=== PATIENT | female | born 1940 | race Caucasian/White ===

== ENCOUNTER → 2017-05-23 | Outpatient (CLI) | payer MEDICARE ==
--- NOTE | 2017-05-23 10:51 | MM ---
Reason for exam: follow-up at short interval from prior study. Last mammogram was performed 6 months ago. History: Patient is postmenopausal. Benign US left guided VAD of the left breast, February 13, 2010. Benign cyst aspiration of the left breast, 2009. Took estrogen for 4 years beginning at age 57. Physical Findings: Nurse did not find any significant physical abnormalities on exam. MG 3D Diag Mammo W/Cad LT CC and MLO view(s) were taken of the left breast. Prior study comparison: November 10, 2016, left breast MG 3d work up w/cad LT. November 02, 2016, bilateral MG 3d screening mammo w/cad. October 28, 2015, bilateral MG 3d screening mammo w/cad. July 29, 2014, right breast MG work up mamm w CAD RT. July 19, 2014, bilateral MG screening mammo w CAD. July 12, 2013, bilateral digital screening mammo w/CAD. May 03, 2012, bilateral digital screening mammo w/CAD. March 31, 2011, bilateral digital screening mammo w/CAD. The breast tissue is heterogeneously dense. This may lower the sensitivity of mammography. The previous questioned nodularity medially is no longer present. These results were verbally communicated with the patient and result sheet given to the patient on 05/23/17. ASSESSMENT: Negative, BI-RAD 1 RECOMMENDATION: Return to routine screening mammogram schedule for both breasts. Back on schedule for October 2017.
== END | disposition home or self-care (01) ==
LOC: RADMAMWWP 09:37
PROVIDERS: ATTEND Internal Medicine
DX: R92.2 Inconclusive mammogram (principal)
CPT/HCPCS: G0206; G0279

== ENCOUNTER → 2017-05-31 | Outpatient (CLI) | payer MEDICARE ==
--- NOTE | 2017-06-01 08:16 | WWHP ---
DATE OF SERVICE: 05/31/2017 CHIEF COMPLAINT: The patient is here for a second opinion regarding her abnormal mammogram and abnormal bone density testing. HPI: This is a 76-year-old G2, P2 with an LMP of 1979 who is status post [facility] for benign reasons. The patient states she had pelvic exam with Pap smear in by Dr. Onofre. She believes the results were normal. The patient did have bilateral screening mammogram on 11/02/16, which did require an additional view of the left breast. The additional view was benign, but they did suggest another mammogram in 6 months. This was done on 05/23/17, which was negative. They recommended bilateral screening mammogram in 10/30. The patient is wondering why she frequently gets called back for mammograms and additional views. She also had a bone density test done in 10/29 done at [facility], which showed osteopenia according to the patient. She was started on Alendronate, but his caused muscle and bone aching and therefore she discontinued the medication. The symptoms did stop after discontinuing the medication. She is otherwise without complaints. PAST MEDICAL HISTORY: Seizure disorder since the . Her last seizure was in 1981. She discontinued medication for this earlier this year. Also, history of osteopenia as above. MEDICATIONS: 1. Multivitamin daily. 2. Calcium with vitamin D daily. Allergies to DILANTIN, which caused a rash. PAST SURGICAL HISTORY: DEZ in 1979, partial bowel resection in 1989, which was benign, left breast needle biopsy in 2009, colonoscopy in 2016 and she has had multiple colonoscopies done. PAST OB HISTORY: Two vaginal deliveries. 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 She does not use HRT. SOCIAL HISTORY: She socially used cigarettes, but quit in college years ago. She has about one alcoholic drink per week and denies drug use. 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 FAMILY HISTORY: Mother had coronary artery disease and diabetes. She also had several aunts who had heart problems and diabetes. She denies family history of cancer of the breast, uterus, ovaries or colon. REVIEW OF SYSTEMS: She believes she has gained about 10 pounds over the last 2 years. She denies respiratory, cardiac or GI problems. She denies maltreatment or falling. : She denies any significant problems with urinary leakage, but can have occasional urinary urgency where she has to get to bathroom right away. PHYSICAL EXAM: Blood pressure 140/72. Height 5 feet 5 inches. Weight 161 pounds. Temperature 97.2. Pulse 63. This is a well-developed, well-nourished white female who is alert and oriented x3 in no acute distress. HEENT is within normal limits. NECK: Supple without mass or thyromegaly. CHEST AND LUNGS: Clear to auscultation. HEART: Regular rate and rhythm. Breasts are without mass or discharge. She does have multiple benign appearing moles beneath the breasts, which she states she has had for many years. BACK: Negative for CVA tenderness. ABDOMEN: Soft, nontender without palpable masses. Pelvic exam was deferred since she states she had a normal pelvic exam in 10/29 as above. IMPRESSION: 1. A 76-year-old menopausal female, status post DEZ for benign reasons. 2. History of abnormal mammogram, which required additional views and short term followup which was benign. 3. History of osteopenia per the patient. PLAN: 1. Pap smears have been discontinued. 2. Self-breast examination was discussed. 3. Bilateral screening mammogram will be done in approximately 6 months. 4. We have had a long discussion regarding her abnormal mammograms. We have reviewed the past several years of mammograms. The patient has been reassured that the ultimate findings were benign. We have discussed her very dense breast tissue as read on her mammograms. With the normal examination, I have reassured the patient that nothing further needs to be done at this time, but to repeat the mammogram as recommended. 5. We have had a long discussion regarding her history of osteopenia. I have asked her to try to get the copy of her report sent to me. We discussed the importance of adequate calcium, vitamin D and regular exercise. We have discussed the recommended amounts of calcium and vitamin D. I have recommended that she repeat the bone density testing at about 2 years. She would like to go without medications and I think this is reasonable. 6. She does get flu shots in the fall. 7. She will return in approximately 6 months for her yearly pelvic exam and mammogram. Total time spent with the patient 30 minutes. CHELY
== END | disposition home or self-care (01) ==
LOC: WWCWWP 09:19
PROVIDERS: ATTEND Obstetrics & Gynecology
DX: Z53.9 Procedure and treatment not carried out, unspecified reason (principal)

== ENCOUNTER → 2017-12-02 | Outpatient (CLI) | payer MEDICARE ==
--- NOTE | 2017-12-02 11:34 | XR ---
EXAM TYPE: LUMBAR SPINE X RAY SERIES COMPARISON: NONE HISTORY: Pain TECHNIQUE: 3 views are submitted. FINDINGS: Scoliotic curvature the spine with diffuse osteopenia noted. There is surgical change in the abdomen. Severe degenerative disc disease L2-L3 and L5-S1 with moderate changes at remaining levels. Minimal anterolisthesis of L4 on L5. There is arthritic change involving the spinous processes at L3-L4. Diff use osteopenia noted. IMPRESSION: 1. Multilevel moderate to severe degenerative disc disease with scoliotic curvature. Foraminal encroa chment likely present correlate with MRI.
== END | disposition home or self-care (01) ==
LOC: RADXRMAIN 11:13
DX: M51.37 Other intervertebral disc degeneration, lumbosacral region (principal)
CPT/HCPCS: 72100

== ENCOUNTER → 2018-03-16 | Outpatient (CLI) | payer MEDICARE ==
--- NOTE | 2018-03-20 08:30 | MM ---
Reason for exam: screening (asymptomatic). Last mammogram was performed 10 months ago. History: Patient is postmenopausal. Benign US left guided VAD of the left breast, February 13, 2010. Benign cyst aspiration of the left breast, 2009. Took estrogen for 4 years beginning at age 57. Physical Findings: A clinical breast exam by your physician is recommended on an annual basis and results should be correlated with mammographic findings. MG 3D Screening Mammo W/Cad Bilateral CC and MLO view(s) were taken. Prior study comparison: May 23, 2017, left breast MG 3d diag mammo w/cad LT. November 10, 2016, left breast MG 3d work up w/cad LT. The breast tissue is heterogeneously dense. This may lower the sensitivity of mammography. There are typically benign round vascular calcifications in both breasts. Previous mammotome biopsy in the left breast. There is no discrete abnormality. ASSESSMENT: Benign, BI-RAD 2 RECOMMENDATION: Routine screening mammogram of both breasts in 1 year.
== END | disposition home or self-care (01) ==
LOC: RADMAMWWP 12:37
PROVIDERS: ATTEND Internal Medicine
DX: Z12.31 Encounter for screening mammogram for malignant neoplasm of breast (principal)
CPT/HCPCS: 77063; 77067

== ENCOUNTER → 2018-10-04 | Outpatient (CLI) | payer MEDICARE ==
[2018-10-04 09:51] VITALS: BP 142/77; PULSE 71; TEMP 97.5; BMI 26.8
--- NOTE | 2018-10-04 10:36 | P.HPOB ---
History of Present Illness H&P Date: 10/04/18 Chief Complaint: The patient is here for her routine gynecologic exam. This is a 78-year-old with LMP of [address] [facility] for benign reasons. The patient states she has had vaginal dryness and some discomfort with sexual intercourse. She is otherwise without gynecologic complaints. Review of Systems Weight has been stable. She denies respiratory, cardiac and G.I. problems. She denies maltreatment or problems with falling. : she has had vaginal dryness and discomfort with sexual intercourse. She is without bladder control complaints. Past Medical History Past Medical History: No Reported History, Seizure Disorder (In the ) Additional Past Medical History / Comment(s): Osteopenia. 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 She is status post [facility] in 1979 History of Any Multi-Drug Resistant Organisms: None Reported Past Surgical History: Breast Surgery (Left breast biopsy 2009), Hysterectomy ( DEZ in 1979) Additional Past Surgical History / Comment(s): mass removed from colon . 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 - Past Family History Mother Family Medical History: Coronary Artery Disease (CAD), Diabetes Mellitus Medications and Allergies Home Medications Medication Instructions Recorded Confirmed Type No Known Home Medications 10/04/18 10/04/18 History Allergies Allergy/AdvReac Type Severity Reaction Status Date / Time No Known Allergies Allergy Unverified 10/04/18 09:42 Exam Vital Signs Temp Pulse BP 10/04/18 09:44 97.5 F L 71 142/77 Intake and Output 10/03/18 10/04/18 10/04/18 22:59 06:59 14:59 Other: Weight 73.028 kg Height 5'5", weight 161 pounds, BMI 26.8. This is a well-developed well-nourished white female who is alert and oriented times 3 in no acute distress. HEENT: Within normal limits. NECK: Supple without mass or thyromegaly. CHEST AND LUNGS: Clear to auscultation. HEART: Regular rate and rhythm. BREASTS: Are without mass or discharge. There is minimal left breast tenderness. She states the left breast has been slightly sore. AXILLARY EXAM: Negative for adenopathy. BACK: Negative for CVA tenderness. ABDOMEN: Soft, nontender, without palpable masses. PELVIC EXAM: External genitalia appears normal with mild to moderate atrophy. Vagina appears normal is mild to moderate atrophy. There is no evidence of prolapse. Bimanual examination is negative for mass or tenderness. RECTAL EXAM: Rectovaginal exam is negative for mass or tenderness and is negative for occult blood. EXTREMITIES: Nontender. IMPRESSION: 1. 78-year-old menopausal female who is status post DEZ for benign reasons with normal gynecologic exam. 2. Dyspareunia and dryness secondary to genital atrophy. 3. History of osteopenia. PLAN: 1. Pap smears have been discontinued. 2. Self breast awareness was discussed with the patient. 3. Screening mammogram was done on 03/16/2018 and was benign. She will plan on repeating this in one year. 4. I recommended that she decrease caffeine and chocolate intake because of the breast tenderness. 5. Trial of Premarin vaginal cream 1 to 2 g intravaginally twice weekly. The electronic prescription will be sent to [facility] pharmacy in [place]. 6. Osteoporosis prevention was discussed. We will plan on repeating the bone density test next year. The last one was done in 2016 and showed osteopenia per the patient. 7. She did receive her flu shot this fall. 8. She will return in one year.
== END ==
LOC: WWCWWP 09:25
PROVIDERS: ATTEND Obstetrics & Gynecology
DX: Z53.9 Procedure and treatment not carried out, unspecified reason (principal)

== ENCOUNTER 2019-02-18 11:37 | Emergency (ER) | payer MEDICARE ==
[2019-02-18 11:53] VITALS: RESP 18
[2019-02-18] MEDS ORDERED: HYDROmorphone 0.5 MG/0.5 ML SYRINGE IVP STA ×2 (12:14→14:08)
--- NOTE | 2019-02-18 12:34 | ED ---
General Adult HPI - General Chief complaint: Headache Stated complaint: Vertigo, Nausea, vomiting Time Seen by Provider: 02/18/19 11:50 Source: patient, RN notes reviewed Mode of arrival: EMS Limitations: no limitations - History of Present Illness Initial comments: This is a 78-year-old female presents emergency Department complaining of a occipital headache. Patient states she got up this Tuesday by 6:00 and walked her dog and had no incident. Patient states she went back to bed he started getting a headache in the occipital region she stated that after about 20-30 minutes the headache reached about an 8 out of 10 which was it's peak. Patient states it's little better now. Patient states she did vomit times one but has not vomited since. Patient states in November she had a bleed in her brain secondary to trauma. Patient states the bleed was in the frontal right region of her brain and this is in the occipital region. Patient denies any neck pain or stiffness. Patient denies any fever chills per patient denies any blurred vision however she states she saw a lot of black spots when the headache was at its worst in both eyes. Patient denies any speech disturbance. Patient denies any numbness or weakness. Patient denies any chest pain palpitations difficulty breathing or shortness of breath per patient denies any abdominal pain patient denies nausea vomiting diarrhea. - Related Data Previous Rx's Medication Instructions Recorded Estrogens, Conjugated Cream 1 gm VAGINAL DIRECTED #1 tube 10/04/18 [Premarin Cream] Allergies Allergy/AdvReac Type Severity Reaction Status Date / Time phenytoin [From Dilantin] AdvReac Unknown Verified 02/18/19 11:53 Review of Systems ROS Statement: Those systems with pertinent positive or pertinent negative responses have been documented in the HPI. ROS Other: All systems not noted in ROS Statement are negative. Past Medical History Past Medical History: Seizure Disorder Additional Past Medical History / Comment(s): Osteopenia, fall with headinjury, DEZ in 1979 History of Any Multi-Drug Resistant Organisms: None Reported Past Surgical History: Breast Surgery, Hysterectomy Additional Past Surgical History / Comment(s): mass removed from colon . Colonoscopy 2016(multiple) Past Psychological History: No Psychological Hx Reported Smoking Status: Former smoker Past Alcohol Use History: Rare Past Drug Use History: None Reported - Past Family History Mother Family Medical History: Coronary Artery Disease (CAD), Diabetes Mellitus General Exam - General Exam Comments Initial Comments: GENERAL: Patient is well-developed and well-nourished. Patient is nontoxic and well- hydrated and is in mild distress. ENT: Neck is soft and supple. No significant lymphadenopathy is noted. Oropharynx is clear. Moist mucous membranes. Neck has full range of motion without eliciting any pain. Patient has no meningitis meningismus signs EYES: The sclera were anicteric and conjunctiva were pink and moist. Extraocular movements were intact and pupils were equal round and reactive to light. Eyelids were unremarkable. PULMONARY: Unlabored respirations. Good breath sounds bilaterally. No audible rales rhonchi or wheezing was noted. CARDIOVASCULAR: There is a regular rate and rhythm without any murmurs gallops or rubs. ABDOMEN: Soft and nontender with normal bowel sounds. SKIN: Skin is clear with no lesions or rashes and otherwise unremarkable. NEUROLOGIC: Patient is alert and oriented x3. Cranial nerves II through XII are grossly intact. Motor and sensory are also intact. Normal speech, volume and content. Symmetrical smile. MUSCULOSKELETAL: Normal extremities with adequate strength and full range of motion. LYMPHATICS: No significant lymphadenopathy is noted PSYCHIATRIC: Normal psychiatric evaluation. Limitations: no limitations Course Vital Signs 02/18/19 11:48 Temperature 97.8 F Pulse Rate 67 Respiratory 18 Rate Blood Pressure 125/60 O2 Sat by Pulse 99 Oximetry Medical Decision Making - Medical Decision Making EKG shows normal sinus rhythm at 66 bpm [place] interval 274 QRS is 106 QT interval 442 QTC is 463. Patient's EKG shows no ST segment elevation or depression or T wave abnormalities are noted. CT of the brain shows no acute abnormality. I went back in the room to reevaluate the patient she was sleeping I woke her she got up and stated she had no more headache. Patient walked around the emergency department without problem. Patient has no complaints at all at this time. Patient states she's had this headache every single day since she's been released from the hospital from her intercranial hemorrhage. agrees that it is a daily occurrence. - Lab Data Result diagrams: 02/18/19 12:37 02/18/19 12:37 Lab Results 02/18/19 02/18/19 Range/Units 12:37 12:37 WBC 4.6 (3.8-10.6) k/uL RBC 4.95 (3.80-5.40) m/uL Hgb 14.1 (11.4-16.0) gm/dL Hct 42.8 (34.0-46.0) % MCV 86.5 (80.0-100.0) fL MCH 28.6 (25.0-35.0) pg MCHC 33.0 (31.0-37.0) g/dL RDW 15.8 H (11.5-15.5) % Plt Count 226 (150-450) k/uL Neutrophils % 72 % Lymphocytes % 18 % Monocytes % 5 % Eosinophils % 2 % Basophils % 1 % Neutrophils # 3.4 (1.3-7.7) k/uL Lymphocytes # 0.9 L (1.0-4.8) k/uL Monocytes # 0.2 (0-1.0) k/uL Eosinophils # 0.1 (0-0.7) k/uL Basophils # 0.0 (0-0.2) k/uL Sodium 141 (137-145) mmol/L Potassium 4.3 (3.5-5.1) mmol/L Chloride 110 H (98-107) mmol/L Carbon Dioxide 27 (22-30) mmol/L Anion Gap 4 mmol/L BUN 10 (7-17) mg/dL Creatinine 0.72 (0.52-1.04) mg/dL Est GFR (CKD-EPI)AfAm >90 (>60 ml/min/1.73 sqM) Est GFR (CKD-EPI)NonAf 82 (>60 ml/min/1.73 sqM) Glucose 112 H (74-99) mg/dL Calcium 9.3 (8.4-10.2) mg/dL Total Bilirubin 0.5 (0.2-1.3) mg/dL AST 20 (14-36) U/L ALT 35 (9-52) U/L Alkaline Phosphatase 59 (38-126) U/L Total Protein 6.3 (6.3-8.2) g/dL Albumin 3.7 (3.5-5.0) g/dL Disposition Clinical Impression: Headache Disposition: HOME SELF-CARE Condition: Good Instructions (If sedation given, give patient instructions): Acute Headache (ED) Is patient prescribed a controlled substance at d/c from ED?: No Referrals: Cris Onofre MD [Primary Care Provider] - 1-2 days Time of Disposition: 14:00
[2019-02-18 12:46] LABS: Basophils % (A) 1 %; Eosinophils # (A) 0.1 k/uL (0-0.7); Eosinophils % (A) 2 %; HCT 42.8 % (34.0-46.0); HGB 14.1 gm/dL (11.4-16.0); Lymphocytes # (A) 0.9 k/uL (1.0-4.8); Lymphocytes % (A) 18 %; MCH 28.6 pg (25.0-35.0); MCV 86.5 fL (80.0-100.0); Mean Platelet Volume 9.7; Monocytes # (A) 0.2 k/uL (0-1.0); Monocytes % (A) 5 %; Neutrophils # (A) 3.4 k/uL (1.3-7.7); Neutrophils % (A) 72 %; Platelet Count 226 k/uL (150-450); RBC 4.95 m/uL (3.80-5.40); RDW 15.8 % (11.5-15.5); WBC 4.6 k/uL (3.8-10.6)
[2019-02-18 12:59] LABS: ALT 35 U/L (9-52); AST 20 U/L (14-36); Albumin 3.7 g/dL (3.5-5.0); Alkaline Phosphatase 59 U/L (38-126); Anion Gap 4 mmol/L; Blood Urea Nitrogen 10 mg/dL (7-17); Calcium 9.3 mg/dL (8.4-10.2); Carbon Dioxide 27 mmol/L (22-30); Chloride 110 mmol/L (98-107); Glucose 112 mg/dL (74-99); Potassium 4.3 mmol/L (3.5-5.1); Sodium 141 mmol/L (137-145); Total Bilirubin 0.5 mg/dL (0.2-1.3); Total Protein 6.3 g/dL (6.3-8.2)
--- NOTE | 2019-02-18 13:31 | CT ---
EXAMINATION TYPE: CT brain wo con DATE OF EXAM: 02/18/2019 COMPARISON: NONE HISTORY: Severe ROBISON, history of bleed CT DLP: 1056.4 mGycm Automated exposure control for dose reduction was used. FINDINGS: There are generalized changes of sulcal prominence and ventriculomegaly, compatible with atrophic blanca nge. There is diffuse periventricular white matter lucency, compatible with chronic white matter isch emic change. There is no acute focal lesion, mass effect or midline shift identified. I do not see ev idence of intracranial blood. Visualized portions of the paranasal sinuses and mastoids are clear. The bony calvarium is intact. IMPRESSION: 1. NO ACUTE INTRACRANIAL ABNORMALITY. 2. MILD DEGENERATIVE CHANGE.
[2019-02-18] MEDS ORDERED: PROPOFOL 1,000 MG in EMPTY BAG 1 BAG IV ONE (13:42)
[2019-02-18] MEDS ORDERED: ASPIRIN-ACET-CAFF 250-250-65MG 1 EACH TAB PO STA (14:07)
[2019-02-18 14:43] VITALS: BP 96/57; PULSE 52; TEMP 98.1
== END 2019-02-18 14:30 | disposition home or self-care (01) ==
LOC: EC 11:37
DX: R51 Headache (principal); R11.10 Vomiting, unspecified; Z87.891 Personal history of nicotine dependence; Z88.8 Allergy status to other drugs, medicaments and biological substances; Z53.8 Procedure and treatment not carried out for other reasons
CPT/HCPCS: 36415; 93005; 80053; 85025; 70450; 99285; 96374; 96376; J1170

== ENCOUNTER → 2019-03-02 | Outpatient (CLI) | payer MEDICARE ==
--- NOTE | 2019-03-02 11:25 | MR ---
EXAMINATION TYPE: MR brain wo/w con DATE OF EXAM: 03/02/2019 COMPARISON: CT brain 02/18/2019 HISTORY: Head injury, fall TECHNIQUE: Multiplanar, multisequence images of the brain and brainstem is performed without and with IV contras t, utilizing 7.5 mL intravenous Gadavist . FINDINGS: Diffusion weighted images demonstrate no evidence of a recent infarct or other diffusion ab normality. There is changes of chronic mastoiditis and sinusitis. There are diffuse and focal areas of abnormal signal scattered throughout the white matter bilaterall y. More localized area of abnormal signal in the left parietal occipital junction suggestive of an area of previous ischemia. Mild generalized degenerative change seen. Midline structures demonstrate normal morphology. The craniocervical junction appears within normal limits. Post contrast images demonstrate no abnormal enhancement. The dural venous sinuses appear pa tent. IMPRESSION: 1. Degenerative and nonspecific white matter changes most typical remote microvascular ischemia. 2 bi lateral mastoiditis and chronic sinusitis.
== END | disposition home or self-care (01) ==
LOC: RADMRIMAIN 08:47
PROVIDERS: ATTEND Internal Medicine
DX: R90.89 Other abnormal findings on diagnostic imaging of central nervous system (principal); R56.9 Unspecified convulsions; J32.9 Chronic sinusitis, unspecified
CPT/HCPCS: 70553; A9585

== ENCOUNTER → 2019-04-25 | Outpatient (CLI) | payer MEDICARE ==
--- NOTE | 2019-04-25 15:56 | US ---
EXAMINATION TYPE: US pelvic complete DATE OF EXAM: 04/25/2019 COMPARISON: NONE CLINICAL HISTORY: Ovarian Cyst Right Side N83.291. Intermittent right abdominal pressure and bloating x 6 months, 2, para 2, history of hysterectomy and tubal ligation TECHNIQUE: . Transabdominal sonographic images of the pelvis were acquired. Patient refused transvag inal exam at this time. Date of LMP: 25+ years ago EXAM MEASUREMENTS: Uterus: surgically absent Endometrial Stripe: surgically absent Right Ovary: not seen Left Ovary: not seen 1. Uterus: surgically absent 2. Endometrium: surgically absent 3. Right Ovary: not seen 4. Left Ovary: not seen 5. Bilateral Adnexa: wnl 6. Posterior cul-de-sac: wnl IMPRESSION: Surgical absence of the and uterus. Ovaries are not seen transabdominally and the patient refused transvaginal imaging.
== END | disposition home or self-care (01) ==
LOC: RADUSWWP 14:58
PROVIDERS: ATTEND Internal Medicine
DX: N83.291 Other ovarian cyst, right side (principal); Z90.710 Acquired absence of both cervix and uterus
CPT/HCPCS: 76856

== ENCOUNTER 2021-10-06 10:35 | Emergency (ER) | payer MEDICARE ==
[2021-10-06 11:18] VITALS: BP 142/73; PULSE 64; RESP 19; TEMP 98.5
--- NOTE | 2021-10-06 12:12 | XR ---
EXAMINATION TYPE: XR chest 2V DATE OF EXAM: 10/06/2021 COMPARISON: Chest x-ray 07/24/2018 HISTORY: Cough and chest congestion, difficulty breathing TECHNIQUE: Frontal and lateral views of the chest are obtained. FINDINGS: Calcification left upper lobe is stable, there are additional scattered granuloma present. No evident pneumothorax or pleural effusion. Right hemidiaphragm is mildly elevated as on prior. Aor ta is dense. Cardiomediastinal silhouette is stable. No evident airspace disease. There is bronchial wall thickening. There is a slight spinal curvature. Mixed density lesion within the humeral head lik jesse is stable. IMPRESSION: Correlate for bronchitis, follow-up as indicated. Additional findings above.
--- NOTE | 2021-10-06 12:43 | ED ---
General Adult HPI - General Chief complaint: Upper Respiratory Infection Stated complaint: Upper Resp Time Seen by Provider: 10/06/21 12:19 Source: patient, RN notes reviewed Mode of arrival: ambulatory Limitations: no limitations - History of Present Illness Initial comments: 81-year-old female with a past medical history of seizure disorder, osteopenia presents to the emergency room for a chief complaint of cough. Patient started to not feel well last Tuesday. She developed a cough and chest congestion. States she has been more fatigued than normal. Patient's was diagnosed with RSV. Patient did see her doctor and started an antibiotic erythromycin as well as steroid dose pack on Tuesday. Today they wanted to get checked out as her is very sick with a history of asthma.Patient has no other complaints at this time including shortness of breath, chest pain, abdominal pain, nausea or vomiting, headache, or visual changes. - Related Data Previous Rx's Medication Instructions Recorded Estrogens, Conjugated Cream 1 gm VAGINAL DIRECTED #1 tube 10/04/18 [Premarin Cream] Albuterol Inhaler [Ventolin Hfa 2 puff INHALATION RT-QID PRN #8 gm 10/06/21 Inhaler] Allergies Allergy/AdvReac Type Severity Reaction Status Date / Time phenytoin [From Dilantin] AdvReac Unknown Verified 10/06/21 11:19 Review of Systems ROS Statement: Those systems with pertinent positive or pertinent negative responses have been documented in the HPI. ROS Other: All systems not noted in ROS Statement are negative. Past Medical History Past Medical History: Seizure Disorder Additional Past Medical History / Comment(s): Osteopenia, fall with headinjury, DEZ in 1979 History of Any Multi-Drug Resistant Organisms: None Reported Past Surgical History: Breast Surgery, Hysterectomy Additional Past Surgical History / Comment(s): mass removed from colon . Colonoscopy 2016(multiple) Past Psychological History: No Psychological Hx Reported Smoking Status: Never smoker Past Alcohol Use History: Rare Past Drug Use History: None Reported - Past Family History Mother Family Medical History: Coronary Artery Disease (CAD), Diabetes Mellitus General Exam Limitations: no limitations General appearance: alert, in no apparent distress Head exam: Present: atraumatic Eye exam: Present: normal appearance, PERRL, EOMI. Absent: scleral icterus, conjunctival injection ENT exam: Present: normal exam, mucous membranes moist Neck exam: Present: normal inspection, full ROM Respiratory exam: Present: normal lung sounds bilaterally. Absent: respiratory distress, wheezes, rales, rhonchi Cardiovascular Exam: Present: regular rate, normal rhythm, normal heart sounds Course Vital Signs 10/06/21 11:15 Temperature 98.5 F Pulse Rate 64 Respiratory 19 Rate Blood Pressure 142/73 O2 Sat by Pulse 95 Oximetry Medical Decision Making - Medical Decision Making Vitals are stable. Patient is 95% on room air. She is not in any respiratory distress. Physical exam is unremarkable. Patient has clear lung sounds bilaterally. Patient tested negative for carotid virus today. Chest x-ray did show a correlate for bronchitis. Patient's has RSV and is in the ICU. However he does have a history of asthma. Given this I did offer to test patient for RSV as the rest was done in triage. However as this will not change the clear plan she refers not to be tested at this time. She will continue on her steroid and antibiotic. We will prescribe her albuterol. If she has worsening symptoms she'll return to the emergency room. - Lab Data Lab Results 10/06/21 Range/Units 11:21 Coronavirus (PCR) Not Detected (Not Detectd) Disposition Clinical Impression: Bronchitis, Cough Disposition: HOME SELF-CARE Condition: Good Instructions (If sedation given, give patient instructions): Acute Bronchitis (ED) Additional Instructions: Please finish your medications as previously prescribed. Use inhaler as needed. Follow-up with your primary care doctor. Return to the emergency room for any worsening symptoms. Prescriptions: Albuterol Inhaler [Ventolin Hfa Inhaler] 2 puff INHALATION RT-QID PRN #8 gm PRN Reason: Shortness Of Breath Is patient prescribed a controlled substance at d/c from ED?: No Referrals: Cris Onofre MD [Primary Care Provider] - 1-2 days Time of Disposition: 12:42
== END 2021-10-06 12:59 | disposition home or self-care (01) ==
LOC: EC 10:35
DX: J40 Bronchitis, not specified as acute or chronic (principal); Z20.822 Contact with and (suspected) exposure to COVID-19
CPT/HCPCS: 71046; 87635; 99283

== ENCOUNTER 2023-03-30 12:49 | Inpatient (IN) | payer MEDICARE ==
[2023-03-30 13:16] LABS: Glucose,Whole Blood 85 mg/dL (70-110)
[2023-03-30 13:21] LABS: Basophils % (A) 1 %; Eosinophils # (A) 0.3 k/uL (0-0.7); Eosinophils % (A) 5 %; HGB 13.3 gm/dL (11.4-16.0); Lymphocytes # (A) 1.1 k/uL (1.0-4.8); Lymphocytes % (A) 22 %; MCH 30.2 pg (25.0-35.0); MCHC 32.4 g/dL (31.0-37.0); Mean Platelet Volume 7.3; Monocytes # (A) 0.3 k/uL (0-1.0); Monocytes % (A) 7 %; Neutrophils # (A) 3.2 k/uL (1.3-7.7); Neutrophils % (A) 64 %; Platelet Count 254 k/uL (150-450); RBC 4.41 m/uL (3.80-5.40); RDW 13.5 % (11.5-15.5); WBC 5.1 k/uL (3.8-10.6)
[2023-03-30 13:37] LABS: Prothrombin Time 10.2 sec (9.0-12.0)
[2023-03-30 13:38] LABS: Partial Thromboplastin Time 21.2 sec (22.0-30.0)
--- NOTE | 2023-03-30 13:41 | CT ---
EXAMINATION TYPE: CT brain wo con CT DLP: 1162.6 mGycm, Automated exposure control for dose reduction was used. DATE OF EXAM: 03/30/2023 1:33 PM COMPARISON: Prior CT brain 01/17/2023. CLINICAL INDICATION:Female, 82 years old with history of Neuro deficit, acute, stroke suspected, LT s jb weakness, stroke in January TECHNIQUE: Brain: Multiple axial CT images of the brain were obtained without IV contrast. Coronal and sagittal reformats reviewed. FINDINGS: Brain: Extra-axial spaces: No abnormal extra-axial fluid collections. Resolution of subdural hemorrhage in t he right middle cranial fossa. Ventricular system: Within normal limits Cerebral parenchyma: Cerebral atrophy. No acute intraparenchymal hemorrhage or mass effect. Resolutio n of previously seen intraparenchymal hemorrhage within the right temporal lobe with encephalomalacia demonstrated. Remote injury to the left occipital lobe with evidence of malacia demonstrated and sim ilar in appearance to prior exam. The younger-white junction is well differentiated. Scattered hypoatten uating areas are seen within the white matter. Cerebellum: Unremarkable. Mass effect: No evidence of midline shift. Intracranial vasculature: Atherosclerotic calcifications of the intracranial vessels. Soft tissues: Normal. Calvarium/osseous structures: No depressed skull fracture. Paranasal sinuses and mastoid air cells: The mastoid is cells are clear. Mild mucosal thickening in t he right maxillary sinus. Visualized orbits: Orbital contents are intact. IMPRESSION: 1. No acute intracranial process. 2. Resolution of previously seen subdural hemorrhage and intraparenchymal hemorrhage within the righ t middle cranial fossa. There is associated evolving encephalomalacia in the right temporal lobe. 3. Remote left occipital lobe infarct with nonspecific white matter changes likely related to chroni c small vessel ischemic disease.
[2023-03-30 13:43] LABS: ALT 29 U/L (4-34); African American GFR (CKD) >90 (>60 ml/min/1.73 sqM); Albumin 3.3 g/dL (3.5-5.0); Anion Gap 8 mmol/L; Blood Urea Nitrogen 11 mg/dL (7-17); Calcium 8.2 mg/dL (8.4-10.2); Carbon Dioxide 25 mmol/L (22-30); Chloride 106 mmol/L (98-107); Creatine Kinase 145 U/L (30-135); Glucose 91 mg/dL (74-99); Non-African American GFR(CKD) 88 (>60 ml/min/1.73 sqM); Sodium 139 mmol/L (137-145); Total Bilirubin 0.4 mg/dL (0.2-1.3)
[2023-03-30 13:47] LABS: AST 27 U/L (14-36); Alkaline Phosphatase 63 U/L (38-126)
--- NOTE | 2023-03-30 14:15 | CT ---
EXAMINATION TYPE: CT angio head neck CT DLP :373.5 mGycm, Automated exposure control for dose reduction was used. DATE OF EXAM: 03/30/2023 1:56 PM COMPARISON: CTA head neck 01/17/2023, CT head 03/30/2023. CLINICAL INDICATION:Female, 82 years old with history of Neuro deficit, acute, stroke suspected; [facility], TECHNIQUE: Axially acquired helical CT angiogram of the head and neck was obtained with contrast util izing 65 cc of Isovue-370 administered intravenously. Axial images are supplemented with 3D reconstru ctions which were post-processed at an independent workstation. NASCET criteria used. FINDINGS: CTA HEAD: No evidence of acute intracranial hemorrhage, mass effect, or midline shift. The ventricles, sulci, a nd cisterns are unremarkable. The visualized portions of the internal carotid arteries, middle cerebral arteries, anterior cerebral arteries, and posterior cerebral arteries are patent. The basilar and vertebral arteries are patent. CTA NECK: Right Carotid System: The common carotid artery and external carotid artery are patent. Mild atherosclerotic calcification of the carotid bifurcation. The carotid bifurcation demonstrates no evidence of hemodynamically signi ficant stenosis. The remaining portions of the internal carotid artery demonstrate normal size withou t significant narrowing. Left Carotid System: The common carotid artery and external carotid artery are patent. Mild atherosclerotic calcification of the carotid bifurcation. The carotid bifurcation demonstrates no evidence of hemodynamically signi ficant stenosis. The remaining portions of the internal carotid artery demonstrate normal size withou t significant narrowing. Vertebral arteries are patent without evidence hemodynamically significant stenosis. Right vertebral artery is dominant. There is a four-vessel aortic arch. The origins of the great vessels are patent. No evidence of hemod ynamically significant stenosis. IMPRESSION: 1. No evidence of dissection of the cervical internal carotid arteries or vertebral arteries. Mild pl aque at the carotid artery bifurcations without evidence hemodynamically significant stenosis. 2. No evidence of high-grade stenosis or intracranial aneurysm.
[2023-03-30 14:16] LABS: Appearance,Urine Clear (Clear); Bilirubin,Urine Negative (Negative); Blood,Urine Negative (Negative); Color,Urine Yellow; Glucose,Urine (UA) Negative (Negative); Ketones,Urine Negative (Negative); Leukocyte Esterase,Urine Negative (Negative); Nitrite,Urine Negative (Negative); PH, Urine 6.5 (5.0-8.0); Protein,Urine Trace (Negative); Specific Gravity,Urine 1.031 (1.001-1.035); Urobilinogen,Urine <2.0 mg/dL (<2.0)
--- NOTE | 2023-03-30 14:54 | ED ---
Altered Mental Status HPI - General Chief Complaint: Altered Mental Status Stated Complaint: AMS Time Seen by Provider: 03/30/23 13:00 Source: EMS Mode of arrival: EMS Limitations: altered mental status - History of Present Illness Initial Comments: 82-year-old female with past history of hemorrhagic CVA who presents emergency Department with altered mental status. Nursing facility states that the patient went to bed her normal self around 9 PM last night. She woke at 6 AM. They state that her gait was off. Patient was somnolent and difficult to arouse. They felt that the patient had weakness in her left upper extremity. She does have history of hemorrhagic stroke. denies that the patient has had any changes in her speech, coordination, strength since the stroke. No report of any fevers. No trauma. HPI is limited because of the patient's current mentation status - Related Data Home Medications Medication Instructions Recorded Confirmed Acetaminophen [Tylenol] 650 mg PO Q4H PRN 03/30/23 03/30/23 Donepezil HCl [Aricept] 10 mg PO HS 03/30/23 03/30/23 Ezetimibe [Zetia] 10 mg PO DAILY 03/30/23 03/30/23 Melatonin 10 mg PO HS 03/30/23 03/30/23 Memantine [Namenda] 5 mg PO BID 03/30/23 03/30/23 Omeprazole [PriLOSEC] 20 mg PO DAILY 03/30/23 03/30/23 QUEtiapine FUMARATE [SEROquel] 300 mg PO HS 03/30/23 03/30/23 Previous Rx's Medication Instructions Recorded Aspirin 81 mg PO DAILY tab 04/04/23 Atorvastatin [Lipitor] 40 mg PO DAILY #0 tab 04/04/23 Cyanocobalamin [Vitamin B-12] 1,000 mcg PO DAILY tab 04/04/23 Folic Acid 1 mg PO DAILY tab 04/04/23 carBAMazepine 200 mg PO BID #0 04/04/23 Allergies Allergy/AdvReac Type Severity Reaction Status Date / Time phenytoin [From Dilantin] AdvReac Unknown Verified 03/30/23 15:13 Review of Systems ROS Statement: Those systems with pertinent positive or pertinent negative responses have been documented in the HPI. ROS Other: All systems not noted in ROS Statement are negative. Past Medical History Past Medical History: Seizure Disorder Additional Past Medical History / Comment(s): Osteopenia, fall with headinjury, DEZ in 1979 History of Any Multi-Drug Resistant Organisms: None Reported Past Surgical History: Breast Surgery, Hysterectomy Additional Past Surgical History / Comment(s): mass removed from colon . Colonoscopy 2016(multiple) Past Psychological History: No Psychological Hx Reported Smoking Status: Never smoker Past Alcohol Use History: Rare Past Drug Use History: None Reported - Past Family History Mother Family Medical History: Coronary Artery Disease (CAD), Diabetes Mellitus General Exam Limitations: altered mental status General appearance: alert, in no apparent distress Head exam: Present: atraumatic, normocephalic, normal inspection Eye exam: Present: normal appearance, PERRL, EOMI. Absent: scleral icterus, conjunctival injection, periorbital swelling ENT exam: Present: normal exam, mucous membranes moist Neck exam: Present: normal inspection. Absent: tenderness, meningismus, ly mphadenopathy Respiratory exam: Present: normal lung sounds bilaterally. Absent: respiratory distress, wheezes, rales, rhonchi, stridor Cardiovascular Exam: Present: regular rate, normal rhythm, normal heart sounds. Absent: systolic murmur, diastolic murmur, rubs, gallop, clicks GI/Abdominal exam: Present: soft, normal bowel sounds. Absent: distended, tenderness, guarding, rebound, rigid Extremities exam: Present: normal inspection, full ROM, normal capillary refill. Absent: tenderness, pedal edema, joint swelling, calf tenderness Back exam: Present: normal inspection Neurological exam: Present: alert, CN II-XII intact Psychiatric exam: Present: flat affect Skin exam: Present: warm, dry, intact, normal color. Absent: rash Course Vital Signs 03/30/23 03/30/23 03/30/23 12:55 13:09 13:30 Temperature 97.8 F Pulse Rate 81 Respiratory 16 18 Rate Blood Pressure 110/90 110/90 121/58 O2 Sat by Pulse 95 95 Oximetry 03/30/23 03/30/23 03/30/23 14:00 14:30 15:00 Temperature Pulse Rate 65 Respiratory 16 Rate Blood Pressure 119/60 122/64 121/62 O2 Sat by Pulse 98 Oximetry 03/30/23 03/30/23 15:30 16:45 Temperature Pulse Rate 65 Respiratory 18 18 Rate Blood Pressure 121/62 O2 Sat by Pulse 96 97 Oximetry Medical Decision Making - Medical Decision Making Was pt. sent in by a medical professional or institution (, NIC, LAWN SERVICE WORKER, urgent care, hospital, or senior care...) When possible be specific @ -custodial Did you speak to anyone other than the patient for history (EMS, parent, family, police, friend...)? What history was obtained from this source @ -Patient's Did you review nursing and triage notes (agree or disagree)? Why? @ -I reviewed and agree with nursing and triage notes Were old charts reviewed (outside hosp., previous admission, EMS record, old EKG, old radiological studies, urgent care reports/EKG's, senior care records)? Report findings @ -I reviewed the transfer records from the senior care Differential Diagnosis (chest pain, altered mental status, abdominal pain women, abdominal pain men, vaginal bleeding, weakness, fever, dyspnea, syncope, headache, dizziness, GI bleed, back pain, seizure, CVA, palpatations, mental health, musculoskeletal)? @ -pneumonia, uti, fever, stroke, tia, behavior disturbance, dementia medication effect EKG interpreted by me (3pts min.). @ -Interpreted by me - see EKG box X-rays interpreted by me (1pt min.). @ -yes CT interpreted by me (1pt min.). @ -yes - no acute ischemia U/S interpreted by me (1pt. min.). @ -None done What testing was considered but not performed or refused? (CT, X-rays, U/S, labs)? Why? @ -None What meds were considered but not given or refused? Why? @ -None Did you discuss the management of the patient with other professionals (professionals i.e. , NIC, LAWN SERVICE WORKER, lab, RT, psych nurse, social studies department chair, insulation nozzleman, teacher, dental officer, case picker)? Give summary @ -Dr. Onofre and midlevel provider from stroke network Was smoking cessation discussed for >3mins.? @ -No Was critical care preformed (if so, how long)? @ -yes, 32 minutes for activation of code stroke and 2 conversations with the stroke network regarding patient Were there social determinants of health that impacted care today? How? (Homelessness, low income, unemployed, alcoholism, drug addiction, transportation, low edu. Level, literacy, decrease access to med. care, custodial, rehab)? @ -No Was there de-escalation of care discussed even if they declined (Discuss DNR or withdrawal of care, Hospice)? DNR status @ -No What co-morbidities impacted this encounter? (DM, HTN, Smoking, COPD, CAD, Cancer, CVA, ARF, Chemo, Hep., AIDS, mental health diagnosis, sleep apnea, morbid obesity)? @ -previous cva Was patient admitted / discharged? Hospital course, mention meds given and route, prescriptions, significant lab abnormalities, going to OR and other pertinent info. @ -Upon arrival patient is placed into room 23. Thorough history and physical exam was performed. Code stroke was activated due to acute mental status change. Laboratory studies are conducted. Patient does go for CT of her head. Laboratory studies are within normal limits. CT of the head demonstrates no acute changes. Spoke with Dr. Onofre who will accept the patient for observation Undiagnosed new problem with uncertain prognosis? @ -yes Drug Therapy requiring intensive monitoring for toxicity (Heparin, Nitro, Ins ulin, Cardizem)? @ -No Were any procedures done? @ -No Diagnosis/symptom? @ -acute encephalopathy, suspected medication side effect Acute, or Chronic, or Acute on Chronic? @ -acute Uncomplicated (without systemic symptoms) or Complicated (systemic symptoms)? @ -complicated Side effects of treatment? @ -No Exacerbation, Progression, or Severe Exacerbation? @ -No Poses a threat to life or bodily function? How? (Chest pain, USA, ID, pneumonia, PE, COPD, DKA, ARF, appy, cholecystitis, CVA, Diverticulitis, Homicidal, Suicidal, threat to staff... and all critical care pts) @ -No - Lab Data Result diagrams: 04/03/23 07:48 04/03/23 07:48 Lab Results 03/30/23 03/30/23 03/30/23 Range/Units 13:05 13:14 13:14 WBC 5.1 (3.8-10.6) k/uL RBC 4.41 (3.80-5.40) m/uL Hgb 13.3 (11.4-16.0) gm/dL Hct 41.0 (34.0-46.0) % MCV 93.0 (80.0-100.0) fL MCH 30.2 (25.0-35.0) pg MCHC 32.4 (31.0-37.0) g/dL RDW 13.5 (11.5-15.5) % Plt Count 254 (150-450) k/uL MPV 7.3 Neutrophils % 64 % Lymphocytes % 22 % Monocytes % 7 % Eosinophils % 5 % Basophils % 1 % Neutrophils # 3.2 (1.3-7.7) k/uL Lymphocytes # 1.1 (1.0-4.8) k/uL Monocytes # 0.3 (0-1.0) k/uL Eosinophils # 0.3 (0-0.7) k/uL Basophils # 0.0 (0-0.2) k/uL ESR (0-30) mm/Hr PT 10.2 (9.0-12.0) sec INR 1.0 (<1.2) APTT 21.2 L (22.0-30.0) sec Sodium (137-145) mmol/L Potassium (3.5-5.1) mmol/L Chloride (98-107) mmol/L Carbon Dioxide (22-30) mmol/L Anion Gap mmol/L BUN (7-17) mg/dL Creatinine (0.52-1.04) mg/dL Est GFR (CKD-EPI)AfAm (>60 ml/min/1.73 sqM) Est GFR (CKD-EPI)NonAf (>60 ml/min/1.73 sqM) Glucose (74-99) mg/dL POC Glucose (mg/dL) 85 (70-110) mg/dL POC Glu [facility] Specialist ID Herlinda Vines Calcium (8.4-10.2) mg/dL Total Bilirubin (0.2-1.3) mg/dL AST (14-36) U/L ALT (4-34) U/L Alkaline Phosphatase (38-126) U/L Creatine Kinase (30-135) U/L Troponin I (0.000-0.034) ng/mL Total Protein (6.3-8.2) g/dL Albumin (3.5-5.0) g/dL Urine Color Urine Appearance (Clear) Urine pH (5.0-8.0) Ur Specific [place] (1.001-1.035) Urine Protein (Negative) Urine Glucose (UA) (Negative) Urine Ketones (Negative) Urine Blood (Negative) Urine Nitrite (Negative) Urine Bilirubin (Negative) Urine Urobilinogen (<2.0) mg/dL Ur Leukocyte Esterase (Negative) Carbamazepine ug/mL 03/30/23 03/30/23 03/30/23 Range/Units 13:14 13:14 13:14 WBC (3.8-10.6) k/uL RBC (3.80-5.40) m/uL Hgb (11.4-16.0) gm/dL Hct (34.0-46.0) % MCV (80.0-100.0) fL MCH (25.0-35.0) pg MCHC (31.0-37.0) g/dL RDW (11.5-15.5) % Plt Count (150-450) k/uL MPV Neutrophils % % Lymphocytes % % Monocytes % % Eosinophils % % Basophils % % Neutrophils # (1.3-7.7) k/uL Lymphocytes # (1.0-4.8) k/uL Monocytes # (0-1.0) k/uL Eosinophils # (0-0.7) k/uL Basophils # (0-0.2) k/uL ESR (0-30) mm/Hr PT (9.0-12.0) sec INR (<1.2) APTT (22.0-30.0) sec Sodium 139 (137-145) mmol/L Potassium 4.0 (3.5-5.1) mmol/L Chloride 106 (98-107) mmol/L Carbon Dioxide 25 (22-30) mmol/L Anion Gap 8 mmol/L BUN 11 (7-17) mg/dL Creatinine 0.56 (0.52-1.04) mg/dL Est GFR (CKD-EPI)AfAm >90 (>60 ml/min/1.73 sqM) Est GFR (CKD-EPI)NonAf 88 (>60 ml/min/1.73 sqM) Glucose 91 (74-99) mg/dL POC Glucose (mg/dL) (70-110) mg/dL POC Glu [facility] Specialist ID Calcium 8.2 L (8.4-10.2) mg/dL Total Bilirubin 0.4 (0.2-1.3) mg/dL AST 27 (14-36) U/L ALT 29 (4-34) U/L Alkaline Phosphatase 63 (38-126) U/L Creatine Kinase 145 H (30-135) U/L Troponin I <0.012 (0.000-0.034) ng/mL Total Protein 6.0 L (6.3-8.2) g/dL Albumin 3.3 L (3.5-5.0) g/dL Urine Color Urine Appearance (Clear) Urine pH (5.0-8.0) Ur Specific [place] (1.001-1.035) Urine Protein (Negative) Urine Glucose (UA) (Negative) Urine Ketones (Negative) Urine Blood (Negative) Urine Nitrite (Negative) Urine Bilirubin (Negative) Urine Urobilinogen (<2.0) mg/dL Ur Leukocyte Esterase (Negative) Carbamazepine <3.0 ug/mL 03/30/23 03/30/23 Range/Units 13:14 13:53 WBC (3.8-10.6) k/uL RBC (3.80-5.40) m/uL Hgb (11.4-16.0) gm/dL Hct (34.0-46.0) % MCV (80.0-100.0) fL MCH (25.0-35.0) pg MCHC (31.0-37.0) g/dL RDW (11.5-15.5) % Plt Count (150-450) k/uL MPV Neutrophils % % Lymphocytes % % Monocytes % % Eosinophils % % Basophils % % Neutrophils # (1.3-7.7) k/uL Lymphocytes # (1.0-4.8) k/uL Monocytes # (0-1.0) k/uL Eosinophils # (0-0.7) k/uL Basophils # (0-0.2) k/uL ESR 17 (0-30) mm/Hr PT (9.0-12.0) sec INR (<1.2) APTT (22.0-30.0) sec Sodium (137-145) mmol/L Potassium (3.5-5.1) mmol/L Chloride (98-107) mmol/L Carbon Dioxide (22-30) mmol/L Anion Gap mmol/L BUN (7-17) mg/dL Creatinine (0.52-1.04) mg/dL Est GFR (CKD-EPI)AfAm (>60 ml/min/1.73 sqM) Est GFR (CKD-EPI)NonAf (>60 ml/min/1.73 sqM) Glucose (74-99) mg/dL POC Glucose (mg/dL) (70-110) mg/dL POC Glu [facility] Specialist ID Calcium (8.4-10.2) mg/dL Total Bilirubin (0.2-1.3) mg/dL AST (14-36) U/L ALT (4-34) U/L Alkaline Phosphatase (38-126) U/L Creatine Kinase (30-135) U/L Troponin I (0.000-0.034) ng/mL Total Protein (6.3-8.2) g/dL Albumin (3.5-5.0) g/dL Urine Color Yellow Urine Appearance Clear (Clear) Urine pH 6.5 (5.0-8.0) Ur Specific [place] 1.031 (1.001-1.035) Urine Protein Trace H (Negative) Urine Glucose (UA) Negative (Negative) Urine Ketones Negative (Negative) Urine Blood Negative (Negative) Urine Nitrite Negative (Negative) Urine Bilirubin Negative (Negative) Urine Urobilinogen <2.0 (<2.0) mg/dL Ur Leukocyte Esterase Negative (Negative) Carbamazepine ug/mL - EKG Data EKG Comments: EKG is interpreted by myself which demonstrates a sinus rhythm with a rate of 75. HI interval 154. QRS 97. QTC of 419. Q wave with inverted T-wave in lead 3. No acute ST segment elevations Disposition Clinical Impression: Acute encephalopathy Disposition: ADMITTED IP TO THIS [facility] Condition: Stable Is patient prescribed a controlled substance at d/c from ED?: No Time of Disposition: 15:12 Decision to Admit Reason: Admit from EC Decision Date: 03/30/23 Decision Time: 15:12
--- NOTE | 2023-03-30 15:03 | XR ---
EXAMINATION TYPE: XR chest 2V DATE OF EXAM: 03/30/2023 COMPARISON: 01/17/2023, 10/06/2021 TECHNIQUE: PA and lateral views submitted. HISTORY: Altered mental status FINDINGS: The lungs are clear and there is no pneumothorax, pleural effusion, or focal pneumonia. Heart size normal and no overt failure. Osseous structures demonstrate hypertrophic and degenerative changes of the spine. Hyperinflation suggests COPD. There is atherosclerotic change of aorta. Coarsened intersti tium appears chronic. Small calcified nodule stable from 2020 compatible with benign granuloma. IMPRESSION: 1. COPD correlate for chronic interstitial lung disease.
[2023-03-30] MEDS ORDERED: HALOPERIDOL LACTATE 5 MG/ML 1 ML VIAL IVP STA (15:10)
[2023-03-30] MEDS ORDERED: NALOXONE 0.4 MG/ML 1 ML VIAL IV PRN (15:12)
[2023-03-30] MEDS ORDERED: ACETAMINOPHEN TAB 325 MG TAB PO PRN (16:42)
[2023-03-30] MEDS ORDERED: HALOPERIDOL LACTATE 5 MG/ML 1 ML VIAL IM PRN (16:45)
--- NOTE | 2023-03-30 17:55 | P.HPIM ---
History of Present Illness H&P Date: 03/30/23 Chief Complaint: Metabolic encephalopathy HISTORY OF PRESENT ILLNESS: This is an 82-year-old female with a previous medical history significant for hyperlipidemia, epilepsy, vascular dementia, recent history of right temporal intracranial bleed that was diagnosed in 01/17/2023 at [facility] and she was sent to [facility] for evaluation by neurosurgery patient had a stormy and long hospital course down there and she ended up initially going to an extended care facility in the [facility] after that her and her son made in the right refer to be transferred to [facility] and she has been residing over there for the past 4 weeks, patient apparently has been quite agitated and has been getting Seroquel 300 mg at [facility], and she has been having issues with not able to redirect or follow any commands, but I saw her myself Tuesday and she was doing much better she was sitting in her wheelchair, she was getting wheeled around the facility without any acute abnormalities, however today the nursing staff thought that the patient became quite lethargic and not able to answer commands at all she was quite sleepy so they decided to transfer her to the emergency department at [facility] for possible acute stroke, patient was scheduled to go for MRI of the brain that is scheduled as an outpatient for tomorrow morning, so the patient was seen in the ER and had a computed tomography scan of the brain that showed complete resolution of the intracranial hemorrhage that she had before, but because of the presentation she was kept in the hospital she had an episode of agitation after a few minutes and the patient did receive 1 dose of Haldol that helps her quite a bit, because of the changes of mentation and her metabolic encephalopathy she was admitted to the hospital with neurology evaluation. REVIEW OF SYSTEMS: Constitutional: No documented fever, no chills, no night sweats. No weight change. No weakness, fatigue or lethargy. positive for daytime sleepiness. HEENT: No headache. No blurred vision or double vision, no loss of vision. No loss of Hearing, no ringing in the ears, no dizziness. No nasal drainage or congestion. No epistaxis. No sore throat. Lungs: No shortness of breath, no cough, no sputum production. No wheezing. Reports dyspnea with activity. Cardiovascular: No chest pain, no lower extremity edema. No palpitations. No paroxysmal nocturnal dyspnea. No orthopnea. No lightheadedness or dizziness. No syncopal episodes. Abdominal: Reports no abdominal pain. No nausea, vomiting. No diarrhea. No constipation. No bloody or tarry stools reports loss of appetite. Genitourinary: No dysuria, increased frequency, urgency. No urinary retention. Musculoskeletal: No myalgias. positive for muscle weakness, positive for gait dysfunction, no frequent falls. No back pain. No neck pain. Integumentary: No wounds, no lesions. No rash or pruritus. No unusual br uising. No change in hair or nails. Neurologic: No aphasia. No facial droop. positive for change in mentation. No head injury. No headache. No paralysis. No paresthesia. Psychiatric: positive for depression. No anxiety. No mood swings. Endocrine: No abnormal blood sugars. No weight change. PAST MEDICAL HISTORY: Right temporal intracranial hemorrhage. Mixed hyperlipidemia. Epilepsy Vascular dementia Osteoarthritis. PAST SURGICAL HISTORY: Bowel resection 2001 SOCIAL HISTORY: Patient denies any history of smoking, no history of drinking, no drug use or abuse. Currently resides at [facility] FAMILY HISTORY: Father at age of 83 from old age mother at age of 64 from coronary artery disease status post CABG in the recovery room, patient had 3 brothers one with sleep apnea patient has one sister who is okay one son was okay 1 daughters okay as well. PHYSICAL EXAMINATION: General: 82-year-old female laying down in bed in no acute distress. HEENT: Head is atraumatic, normocephalic, pupils were equal round reactive to light and recommendation, extraocular muscle movement were intact, sclera nonicteric, conjunctivae were pale, mucous membranes of the mouth are somewhat dry. Neck: Supple, no JVP, normal carotid upstroke bilaterally, no lymphadenopathy. Chest: Decreased breath sounds at the bases, few rhonchi, no expiratory wheezes, no chest wall tenderness, no intercostal retractions. Heart: First heart sound is normal, second heart sound is normal there is systolic ejection murmur 2/6 located in the left sternal border. Abdomen: Soft, nontender, nondistended, positive bowel sounds. Extremities: There is no edema no calf tenderness DP +2 bilaterally. Neurologic examination: Patient is awake alert and oriented X1, cranial nerves II-12 appear grossly intact, muscle power were 5 out of 5 in upper extremities and 5 out of 5 in bilateral lower extremities, deep tendon reflexes normal bilaterally. ASSESSMENT AND PLAN: 1. Metabolic encephalopathy may be related to medication side effects, computed tomography scan of the brain showed resolution of the intracranial hemorrhage, we'll admit the patient to telemetry unit, we will monitor the patient very closely over the next 24 hours, will obtain neurology consultation, patient was supposed to go for MRI of the brain as an outpatient for evaluation of her severe encephalopathy that was ordered by the neurosurgeon and neurology down at [facility]. She will likely will have that one in the hospital. Please avoid Ativan. 2. Recent right temporal intracranial hemorrhage. Appears to have resolved. 3. Dementia with behavioral disturbance. I will start the patient on Haldol 0.25 mg M push every 8 hours, continue Namenda 5 mg twice every day as well as Aricept 10 mg at bedtime, continue Seroquel 300 mg at bedtime. 4. Mixed hyperlipidemia. Continue patient on atorvastatin 40 mg once every day as well as Zetia 10 mg once every day. 5. History of epilepsy. Continue carbamazepine 100 mg orally twice every day. 6. Insomnia. Continue Seroquel 300 mg at bedtime 7. DVT prophylaxis. Lovenox 40 mg subcutaneously every 24 hours 8. GI prophylaxis. Continue patient on Protonix 40 mg once every day. 9. Admit to inpatient. Estimated length of stay 2 midnights. 10. Full code. Past Medical History Past Medical History: Seizure Disorder Additional Past Medical History / Comment(s): Osteopenia, fall with headinjury, DEZ in 1979 History of Any Multi-Drug Resistant Organisms: None Reported Past Surgical History: Breast Surgery, Hysterectomy Additional Past Surgical History / Comment(s): mass removed from colon . Colonoscopy 2016(multiple) Past Psychological History: No Psychological Hx Reported Smoking Status: Never smoker Past Alcohol Use History: Rare Past Drug Use History: None Reported - Past Family History Mother Family Medical History: Coronary Artery Disease (CAD), Diabetes Mellitus Medications and Allergies Home Medications Medication Instructions Recorded Confirmed Type Acetaminophen [Tylenol] 650 mg PO Q4H PRN 03/30/23 03/30/23 History Donepezil HCl [Aricept] 10 mg PO HS 03/30/23 03/30/23 History Ezetimibe [Zetia] 10 mg PO DAILY 03/30/23 03/30/23 History Melatonin 10 mg PO HS 03/30/23 03/30/23 History Memantine [Namenda] 5 mg PO BID 03/30/23 03/30/23 History Omeprazole [PriLOSEC] 20 mg PO DAILY 03/30/23 03/30/23 History QUEtiapine FUMARATE [SEROquel] 300 mg PO HS 03/30/23 03/30/23 History carBAMazepine 100 mg PO BID 03/30/23 03/30/23 History Allergies Allergy/AdvReac Type Severity Reaction Status Date / Time phenytoin [From Dilantin] AdvReac Unknown Verified 03/30/23 15:13 Physical Exam Vitals: Vital Signs Temp Pulse Resp BP Pulse Ox 03/30/23 16:45 65 18 97 03/30/23 15:30 18 121/62 96 03/30/23 15:00 121/62 03/30/23 14:30 122/64 03/30/23 14:00 65 16 119/60 98 03/30/23 13:30 121/58 03/30/23 13:09 18 110/90 95 03/30/23 12:55 97.8 F 81 16 110/90 95 Intake and Output 03/30/23 03/30/23 03/30/23 06:59 14:59 22:59 Other: Weight 65.771 kg Results CBC & Chem 7: 03/30/23 13:14 03/30/23 13:14 Labs: Abnormal Lab Results - Last 24 Hours (Table) 03/30/23 03/30/23 03/30/23 Range/Units 13:14 13:14 13:53 APTT 21.2 L (22.0-30.0) sec Calcium 8.2 L (8.4-10.2) mg/dL Creatine Kinase 145 H (30-135) U/L Total Protein 6.0 L (6.3-8.2) g/dL Albumin 3.3 L (3.5-5.0) g/dL Urine Protein Trace H (Negative)
[2023-03-30] MEDS: QUEtiapine 100 MG TAB PO SCH (20:25)
[2023-03-30] MEDS: DONEPEZIL 10 MG TAB PO SCH (20:26)
[2023-03-30] MEDS: MEMANTINE 5 MG TAB PO SCH (20:26)
[2023-03-30] MEDS: MELATONIN 5 MG TABLET PO SCH (20:26)
[2023-03-31] MEDS: HEPARIN SODIUM,PORCINE/PF 5,000 UNIT/0.5 ML SYRINGE SQ SCH ×4 (00:37→23:31)
[2023-03-31] MEDS ORDERED: HALOPERIDOL LACTATE 5 MG/ML 1 ML VIAL IM STA (03:13)
[2023-03-31] MEDS ORDERED: HALOPERIDOL LACTATE 5 MG/ML 1 ML VIAL IM PRN (06:45)
[2023-03-31 08:29] LABS: Basophils % (A) 0 %; Eosinophils # (A) 0.2 k/uL (0-0.7); Eosinophils % (A) 4 %; HCT 43.1 % (34.0-46.0); HGB 14.7 gm/dL (11.4-16.0); Lymphocytes # (A) 0.9 k/uL (1.0-4.8); Lymphocytes % (A) 16 %; MCH 30.9 pg (25.0-35.0); MCHC 34.1 g/dL (31.0-37.0); MCV 90.7 fL (80.0-100.0); Mean Platelet Volume 8.9; Monocytes # (A) 0.4 k/uL (0-1.0); Monocytes % (A) 7 %; Neutrophils # (A) 3.9 k/uL (1.3-7.7); Neutrophils % (A) 71 %; Platelet Count 235 k/uL (150-450); RBC 4.76 m/uL (3.80-5.40); RDW 13.4 % (11.5-15.5); WBC 5.5 k/uL (3.8-10.6)
[2023-03-31] MEDS: PANTOPRAZOLE 40 MG TABLET PO SCH (08:51)
[2023-03-31] MEDS: ATORVASTATIN 40 MG TAB PO SCH (08:51)
[2023-03-31] MEDS: EZETIMIBE 10 MG TAB PO SCH (08:51)
[2023-03-31] MEDS: MEMANTINE 5 MG TAB PO SCH ×2 (08:52→20:07)
[2023-03-31] MEDS ORDERED: NON FORMULARY DRUG (Omeprazole 20 MG Capsule.Dr) PO SCH (09:00)
[2023-03-31 12:37] LABS: ALT 30 U/L (8-44); AST 25 U/L (13-35); African American GFR (CKD) 93.5 (60.0-200.0); Albumin/Globulin Ratio 1.68 (1.60-3.17); Alkaline Phosphatase 83 U/L (41-126); BUN/Creat Ratio 10.81 Ratio (12.00-20.00); Blood Urea Nitrogen 7.6 mg/dL (9.0-27.0); Calcium 9.5 mg/dL (8.7-10.3); Carbon Dioxide 23.2 mmol/L (20.0-27.5); Chloride 106 mmol/L (96-109); Globulin 2.4 g/dL (1.6-3.3); Glucose 103 mg/dL (70-110); Non-African American GFR(CKD) 80.7 (60.0-200.0); Potassium 3.9 mmol/L (3.5-5.5); Sodium 141 mmol/L (135-145); Total Protein 6.4 g/dL (6.2-8.2)
--- NOTE | 2023-03-31 15:16 | P.PN ---
Subjective Progress Note Date: 03/31/23 HISTORY OF PRESENT ILLNESS: This is an 82-year-old female with a previous medical history signi ficant for hyperlipidemia, epilepsy, vascular dementia, recent history of right temporal intracranial bleed that was diagnosed in 01/17/[address] [facility] and she was sent to [facility] for evaluation by neurosurgery patient had a stormy and long hospital course down there and she ended up initially going to an extended care facility in the [facility] after that her and her son made in the right refer to be transferred to [facility] and she has been residing over there for the past 4 weeks, patient apparently has been quite agitated and has been getting Seroquel 300 mg at bedtime, and she has been having issues with not able to redirect or follow any commands, but I saw her myself Tuesday and she was doing much better she was sitting in her wheelchair, she was getting wheeled around the facility without any acute abnormalities, however today the nursing staff thought that the patient became quite lethargic and not able to answer commands at all she was quite sleepy so they decided to transfer her to the emergency department at [facility] for possible acute stroke, patient was scheduled to go for MRI of the brain that is scheduled as an outpatient for tomorrow morning, so the patient was seen in the ER and had a computed tomography scan of the brain that showed complete resolution of the intracranial hemorrhage that she had before, but because of the presentation she was kept in the hospital she had an episode of agitation after a few minutes and the patient did receive 1 dose of Haldol that helps her quite a bit, because of the changes of mentation and her metabolic encephalopathy she was admitted to the hospital with neurology evaluation. 03/31: Patient is seen today in follow-up. She's been afebrile, heart rate in the 70s, blood pressure 124/68. Pulse ox 95% on room air. Repeat CBC is unremarkable. telemetry is a sinus rhythm and will be discontinued. patient received multiple doses of Haldol last evening. Neurology is on consult REVIEW OF SYSTEMS: Constitutional: No documented fever, no chills, no night sweats. No weight change. No weakness, fatigue or lethargy. positive for daytime sleepiness. HEENT: No headache. No blurred vision or double vision, no loss of vision. No loss of Hearing, no ringing in the ears, no dizziness. No nasal drainage or congestion. No epistaxis. No sore throat. Lungs: No shortness of breath, no cough, no sputum production. No wheezing. Reports dyspnea with activity. Cardiovascular: No chest pain, no lower extremity edema. No palpitations. No paroxysmal nocturnal dyspnea. No orthopnea. No lightheadedness or dizziness. No syncopal episodes. Abdominal: Reports no abdominal pain. No nausea, vomiting. No diarrhea. No constipation. No bloody or tarry stools reports loss of appetite. Genitourinary: No dysuria, increased frequency, urgency. No urinary retention. Musculoskeletal: No myalgias. positive for muscle weakness, positive for gait dysfunction, no frequent falls. No back pain. No neck pain. Integumentary: No wounds, no lesions. No rash or pruritus. No unusual bruising. No change in hair or nails. Neurologic: No aphasia. No facial droop. positive for change in mentation. No head injury. No headache. No paralysis. No paresthesia. Psychiatric: positive for depression. No anxiety. No mood swings. Endocrine: No abnormal blood sugars. No weight change. PHYSICAL EXAMINATION: General: 82-year-old female laying down in bed in no acute distress. HEENT: Head is atraumatic, normocephalic, pupils were equal round reactive to light and recommendation, extraocular muscle movement were intact, sclera nonicteric, conjunctivae were pale, mucous membranes of the mouth are somewhat dry. Neck: Supple, no JVP, normal carotid upstroke bilaterally, no lymphadenopathy. Chest: Decreased breath sounds at the bases, few rhonchi, no expiratory wheezes, no chest wall tenderness, no intercostal retractions. Heart: First heart sound is normal, second heart sound is normal there is systolic ejection murmur 2/6 located in the left sternal border. Abdomen: Soft, nontender, nondistended, positive bowel sounds. Extremities: There is no edema no calf tenderness DP +2 bilaterally. Neurologic examination: Patient is awake alert and oriented X1, cranial nerves II-12 appear grossly intact, muscle power were 5 out of 5 in upper extremities and 5 out of 5 in bilateral lower extremities, deep tendon reflexes normal bilaterally. ASSESSMENT AND PLAN: 1. Metabolic encephalopathy may be related to medication side effects, computed tomography scan of the brain showed resolution of the intracranial hemorrhage, we'll admit the patient to telemetry unit, we will monitor the patient very closely over the next 24 hours, will obtain neurology consultation, patient was supposed to go for MRI of the brain as an outpatient for evaluation of her severe encephalopathy that was ordered by the neurosurgeon and neurology down at [facility]. She will likely will have that one in the hospital. Please avoid Ativan. 2. Recent right temporal intracranial hemorrhage. Appears to have resolved. 3. Dementia with behavioral disturbance. I will start the patient on Haldol 0.25 mg M push every 8 hours, continue Namenda 5 mg twice every day as well as Aricept 10 mg at bedtime, continue Seroquel 300 mg at bedtime. 4. Mixed hyperlipidemia. Continue patient on atorvastatin 40 mg once every day as well as Zetia 10 mg once every day. 5. History of epilepsy. Continue carbamazepine 100 mg orally twice every day. 6. Insomnia. Continue Seroquel 300 mg at bedtime 7. DVT prophylaxis. Lovenox 40 mg subcutaneously every 24 hours 8. GI prophylaxis. Continue patient on Protonix 40 mg once every day. Full code. Impression and plan of care have been directed as dictated by the signing physician. Alexia Lagos nurse practitioner acting as scribe for signing physician. Objective - Vital Signs Vital signs: Vital Signs Temp 97.7 F 03/31/23 07:42 Pulse 73 03/31/23 07:42 Resp 17 03/31/23 07:42 BP 124/68 03/31/23 07:42 Pulse Ox 95 03/31/23 07:42 FiO2 Intake & Output 03/30/23 03/31/23 03/31/23 18:59 06:59 18:59 Intake Total 0 Balance 0 Weight 65.771 kg Intake: Oral 0 Other: # Voids 2 - Labs CBC & Chem 7: 03/31/23 07:14 03/31/23 07:14 Labs: Abnormal Lab Results - Last 24 Hours (Table) 03/30/23 03/30/23 03/30/23 Range/Units 13:14 13:14 13:53 Lymphocytes # (1.0-4.8) k/uL APTT 21.2 L (22.0-30.0) sec Calcium 8.2 L (8.4-10.2) mg/dL Creatine Kinase 145 H (30-135) U/L Total Protein 6.0 L (6.3-8.2) g/dL Albumin 3.3 L (3.5-5.0) g/dL Urine Protein Trace H (Negative) 03/31/23 Range/Units 07:14 Lymphocytes # 0.9 L (1.0-4.8) k/uL APTT (22.0-30.0) sec Calcium (8.4-10.2) mg/dL Creatine Kinase (30-135) U/L Total Protein (6.3-8.2) g/dL Albumin (3.5-5.0) g/dL Urine Protein (Negative)
[2023-03-31] MEDS ORDERED: ZIPRASIDONE 20 MG VIAL IM PRN (15:27)
[2023-03-31] MEDS: QUEtiapine 100 MG TAB PO SCH (20:06)
[2023-03-31] MEDS: MELATONIN 5 MG TABLET PO SCH (20:07)
[2023-03-31] MEDS: DONEPEZIL 10 MG TAB PO SCH (20:07)
--- NOTE | 2023-03-31 22:09 | P.CNNES ---
History of Present Illness Consult date: 03/31/23 Requesting physician: Leslie Giles Reason for Consult: acute encephalopathy, hx hemorrhagic cva History of Present Illness: Patient is a 82-year-old female who has history of hemorrhagic CVA came to the hospital by ambulance yesterday at 12:49 PM for garbled speech and drooling. Patient has history of hemorrhagic stroke involving right temporal region on 01/17/2023 for which she was transferred from [facility] to [place]. Patient stayed in the ICU for several days. Hospitalization was for about 30 days. She was then transferred to [facility], where she resides at this time. Even after her hemorrhagic stroke, her speech was clear. Patient's njsgnzsi-wu-xnq was present, states that yesterday patient developed garbled and slurred speech and was noted to be drooling from the right side of the mouth. Also had right facial droopiness. Her memory was worse as baseline. Patient's dqeumemx-ns-dnc mentions that on the Mother's Day, patient was doing great, was very clear. She does have history of dementia for last 3 years. Patient in the [facility] is mostly confined to the chair, although she does walk with a walker slightly unsteady. As per EMS flow sheet, when they arrived, patient was sitting upright in the chair. Patient was noted to have had a hemorrhagic stroke just over a month ago. Patient was also noted to have dementia and was alert to person at baseline with some director long term care memory legs recognizing her . Patient was noted to be altered from baseline with weakness and slurred speech since this morning at 6 AM during morning check. EKG showed sinus rhythm. Patient's vitals revealed blood pressure 157/83, pulse 90, respiration 20, saturation 98%, blood sugar 132 and temperature 98.2. Vital signs on arrival blood pressure 110/90, pulse 81 temperature 97.8. Blood test shows normal CBC, PT/PTT, normal CMP. CK is 145, troponin negative, UA negative, Tegretol level negative. CT head revealed no acute intracranial process. Resolution of previously seen subdural hemorrhage and intraparenchymal hemorrhage within the right middle cranial fossa. There is associated evolving encephalomalacia in the right temporal lobe. Remote left occipital lobe infarct with nonspecific white matter changes, likely related to chronic small vessel ischemic disease. I personally reviewed CT head, completely agree with the findings. On my review, there is suspicious small area of hyperdensity in the left frontal lobe, image #48 on axial images, and image 28 on coronal images. EKG shows sinus rhythm. Her chest x-ray revealed COPD correlate for chronic interstitial lung disease. Patient has history of a seizure about 49 years ago. She was treated with seizure medication for quite some time. Patient's son does not remember details. No previous history of tobacco use, used to drink alcohol socially, none for last 1 year. Patient's family denies any recent trauma, although she did fall 5 years ago when she slipped on the ice hitting back of the head. Review of Systems Constitutional: Denies chills, Denies fever Eyes: denies blurred vision, denies diplopia, denies pain Ears: deny: decreased hearing, ear discharge Ears, nose, mouth and throat: Denies headache, Denies sore throat Cardiovascular: Denies chest pain, Denies shortness of breath Respiratory: Denies cough, Denies excessive sputum Gastrointestinal: Denies abdominal pain, Denies diarrhea, Denies nausea, Denies vomiting Genitourinary: Denies dysuria, Denies hematuria Musculoskeletal: Denies frequent falls, Denies gait dysfunction, Denies myalgias Integumentary: Denies pruritus, Denies rash Neurological: Denies numbness, Denies weakness Psychiatric: Reports anxiety attacks, Reports depression, Reports disorientation, Reports memory loss, Denies hallucinations Endocrine: Denies fatigue, Denies weight change Hematologic/Lymphatic: Denies easy bleeding, Denies easy bruising Past Medical History Past Medical History: CVA/TIA, Seizure Disorder Additional Past Medical History / Comment(s): Osteopenia, fall with headinjury, DEZ in 1979, stroke with brain bleed (January 2023) History of Any Multi-Drug Resistant Organisms: None Reported Past Surgical History: Breast Surgery, Hysterectomy Additional Past Surgical History / Comment(s): mass removed from colon . Colonoscopy 2016(multiple) Past Psychological History: No Psychological Hx Reported Smoking Status: Never smoker Past Alcohol Use History: Rare Past Drug Use History: None Reported - Past Family History Mother Family Medical History: Coronary Artery Disease (CAD), Diabetes Mellitus Medications and Allergies Home Medications Medication Instructions Recorded Confirmed Type Acetaminophen [Tylenol] 650 mg PO Q4H PRN 03/30/23 03/30/23 History Donepezil HCl [Aricept] 10 mg PO HS 03/30/23 03/30/23 History Ezetimibe [Zetia] 10 mg PO DAILY 03/30/23 03/30/23 History Melatonin 10 mg PO HS 03/30/23 03/30/23 History Memantine [Namenda] 5 mg PO BID 03/30/23 03/30/23 History Omeprazole [PriLOSEC] 20 mg PO DAILY 03/30/23 03/30/23 History QUEtiapine FUMARATE [SEROquel] 300 mg PO HS 03/30/23 03/30/23 History carBAMazepine 100 mg PO BID 03/30/23 03/30/23 History Allergies Allergy/AdvReac Type Severity Reaction Status Date / Time phenytoin [From Dilantin] AdvReac Unknown Verified 03/30/23 15:13 Physical Examination - Vital Signs Vital Signs: Vital Signs Temp Pulse Pulse Resp BP BP Pulse Ox 03/31/23 07:42 97.7 F 73 17 124/68 95 03/31/23 03:40 97.3 F L 90 20 156/76 95 03/30/23 20:00 76 18 03/30/23 19:35 98.2 F 76 18 162/83 94 L 03/30/23 16:45 65 18 97 03/30/23 15:30 18 121/62 96 03/30/23 15:00 121/62 03/30/23 14:30 122/64 03/30/23 14:00 65 16 119/60 98 03/30/23 13:30 121/58 03/30/23 13:09 18 110/90 95 03/30/23 12:55 97.8 F 81 16 110/90 95 Intake and Output 03/30/23 03/31/23 03/31/23 22:59 06:59 14:59 Intake Total 0 Balance 0 Intake: Oral 0 Other: # Voids 2 Weight 65.771 kg Patient is an elderly female, who is laying comfortably in the bed, in no distress. Patient is alert awake, appears somewhat spacey. Patient knows her name, date of , but could not tell her age. She states it's October and the year is 1967. She could not tell the city or state she is in. She is able to recognize her daughter in law gel in relation to her. Patient is able to name objects li ke pen, eyeglasses, but for a year now but she said "ear-job". She can repeat very well. Her speech is mild to moderately slurred, but no definitive aphasia. Attention, concentration and fund of knowledge is very limited. 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 On cranial nerve examination, pupils are equal, round and reacting to light, visual garay are full on confrontation. Extraocular muscles are intact with no nystagmus. Patient has very subtle right facial asymmetry. Her tongue protrudes to the midline. Palatal elevation and sensation normal, hearing is slightly decreased and shoulder shrug normal, facial sensation normal. 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 In the lower extremities (right/left) hip flexion 4/4, ankle dorsiflexion 5-/5. Deep tendon reflexes are symmetric biceps 1+, brachioradialis 1+, knees 1, ankles 1, plantars upgoing bilaterally. Sensory examination was not reliable patient not cooperative. Cerebellar function patient did not cooperate well. Tone and bulk of muscles normal. Gait deferred.. On general examination, there is no carotid bruit or murmur, S1-S2 audible. Chest is clear on consultation. Abdomen is soft nontender. No organomegaly, bowel sounds present. Peripheral pulses are present. No edema. Results - Laboratory Findings CBC and BMP: 03/31/23 07:14 03/31/23 07:14 Abnormal Lab Findings: Abnormal Labs 03/30/23 03/30/23 03/30/23 13:14 13:14 13:53 Lymphocytes # APTT 21.2 L Calcium 8.2 L Creatine Kinase 145 H Total Protein 6.0 L Albumin 3.3 L Urine Protein Trace H 03/31/23 07:14 Lymphocytes # 0.9 L APTT Calcium Creatine Kinase Total Protein Albumin Urine Protein Assessment and Plan Assessment: * Acute onset of slurred speech, right facial droop with drooling, rule out acute CVA. On my review of the CT, there is questionable very small area of hyperdensity in the left frontal region, rule out small bleed. * History of hemorrhagic CVA involving right temporal region 01/17/2023, treated conservatively * Advanced dementia Plan: * Patient will undergo MRI of the brain to evaluate for an acute stroke. * EEG evaluate for any epileptiform activity. Patient had a spell in front of me, when she suddenly zoned out, her eyes rolled up, was somewhat hyporesponsive for about 20-25 seconds before she started responding. Patient has history of seizure seizure 49 years ago. She is currently on very low dose carbamazepine 100 mg twice a day. Her carbamazepine level is very low < 3.0. We will increase dose to 200 mg twice a day. * CTA of head and neck revealed no evidence of dissection of the cervical internal carotid arteries or vertebral arteries. Mild lock and the carotid artery bifurcations without evidence of hemodynamically significant stenosis. No evidence of high-grade stenosis or intracranial aneurysm. * B12 377, folate 5.9 and TSH 2.23. * For dementia, patient will be continued on Aricept and Namenda. * Discussed with patient's family in detail. Neurology will follow. Thank you for the consult.
[2023-04-01] MEDS ORDERED: IPRATROPIUM-ALBUTEROL 3 ML NEB INHALATION PRN (08:47)
[2023-04-01] MEDS: ATORVASTATIN 40 MG TAB PO SCH (09:05)
[2023-04-01] MEDS: MEMANTINE 5 MG TAB PO SCH ×2 (09:05→22:34)
[2023-04-01] MEDS: EZETIMIBE 10 MG TAB PO SCH (09:05)
[2023-04-01] MEDS: PANTOPRAZOLE 40 MG TABLET PO SCH (09:05)
[2023-04-01] MEDS: HEPARIN SODIUM,PORCINE/PF 5,000 UNIT/0.5 ML SYRINGE SQ SCH ×2 (09:06→17:09)
--- NOTE | 2023-04-01 09:32 | XR ---
EXAMINATION TYPE: XR chest 1V portable DATE OF EXAM: 04/01/2023 COMPARISON: NONE HISTORY: breonna TECHNIQUE: Single frontal view of the chest is obtained. FINDINGS: Calcified granuloma left upper lobe with subsegmental changes at the left lung base. Limit ed inspiration. Heart size normal. No overt failure. No pneumothorax. Mild AC joint arthropathy bilat erally. Sclerosis involving the head of the humerus can occasionally be associated with prior subluxa tion or shoulder dislocation. Suspect underlying COPD. IMPRESSION: 1. Basilar atelectasis favored over pneumonia correlate clinically. 2. Chronic granulomatous disease.
--- NOTE | 2023-04-01 11:06 | MR ---
EXAMINATION TYPE: MR brain wo/w con DATE OF EXAM: 04/01/2023 COMPARISON: CT brain 2 days ago. MRI brain February 20, 2019 HISTORY: AMS, slurred speech, r/o CVA. Acute onset neuro deficit on admission. Recent stroke in January . TECHNIQUE: Multiplanar, multisequence images of the brain and brainstem is performed without and with IV contras t, utilizing 7 mL intravenous Gadavist . Suboptimal as fast brain protocol had to be utilized due to patient motion. FINDINGS: Diffusion weighted images demonstrate small areas of increased signal on diffusion-weighted imaging with diminished signal on ADC mapping, one in the high posterior right frontal lobe measurin g near 5 mm image 192 series 403 with additional 3-4 smaller foci in the high left parietal lobe jese phery. There are areas in the left coronal radiata posterior frontal lobe images 160 and 168 and a pe ripheral area near the inferior frontal parietal junction image 144 measuring 7 mm. Areas show T2-bir th intensity. The right frontal lesion shows vague 6 mm enhancement. Larger subacute on chronic infarct lateral right temporal lobe is redemonstrated with peripheral dimi nished signal or blood product noted. There is background mild to moderate ventricular and sulcal pro minence and moderate to severe focal and confluent areas of T2 hyperintensity throughout the white ma tter bilaterally redemonstrated. Old infarct inferior left occipital lobe again seen. Midline structures redemonstrate normal morphology. The craniocervical junction appears within art l limits. Post contrast images demonstrate no additional areas abnormal enhancement. The dural venou s sinuses appear patent. There is some new dependent fluid in the right maxillary sinus. There is mil d mucosal thickening in the ethmoid sinuses bilaterally. There is fdnl-sy-mhrswbgp mucosal thickening in the left frontal sinus. Some increased fluid signal left mastoid air cells is redemonstrated favo ring retained secretions. Correlate clinically. IMPRESSION: 1. Evolving multifocal bilateral acute/subacute infarcts more prominent in the left brain as detailed above. 2. Background [id number] diffuse cerebral atrophy and moderate to advanced chronic small vessel ischemic change redemonstrated. Subacute on chronic lateral right temporal hemorrhagic infarct redem onstrated. Old left occipital lobe inferior infarct redemonstrated. 3. New paranasal sinus disease as detailed above.
[2023-04-01] MEDS ORDERED: ASPIRIN 81 MG PO STA (11:50)
[2023-04-01] MEDS ORDERED: ASPIRIN 300 MG SUPP RECTAL STA (12:02)
--- NOTE | 2023-04-01 13:03 | CT ---
EXAMINATION TYPE: CODE STROKE: CT brain wo contr DATE OF EXAM: 04/01/2023 COMPARISON: 03/30/2023 HISTORY: Altered mental status. CT DLP: 1054.7 mGycm Automated exposure control for dose reduction was used. FINDINGS: There is no acute intracranial hemorrhage, mass effect, or midline shift identified. The ventricles and sulci are within normal limits in size. The globes are intact and the visualized sinuses are deloris ar. There is an area of low attenuation in the right temporal lobe suggestive of recent ischemia comp atible with MRI. Small punctate areas seen in the deep white matter of the left cerebral hemisphere p arietal lobe and punctate areas of low attenuation involving bilateral peripheral superior parietal l obes corresponding MRI abnormality compatible with recent infarct. No definite acute hemorrhage. There is a small 1 cm anterior temporal fossa arachnoid cyst. Artifact limits assessment of the cereb ellum. Mild infarct left occipital lobe. Moderate generalized degenerative change with some nonspecific low attenuation in the white matter mo st typical of remote microvascular ischemia. Images of chronic sinusitis. Orbits are symmetric. Kayli rium intact. Craniocervical junction is maintained. Prominent cisterna magna noted. On axial image 50 series 5 there is a 2 mm punctate area of hyperdensity which appears to correspond to an area of abnormal signal seen on MRI. This is confirmed on coronal and sagittal images. IMPRESSION: 1. Findings suspicious for a punctate petechial hemorrhage right superior parietal lobe axial image 5 0 series 5. Report called to patient's nurse at 12:55 PM 04/01/2023. 2. Multiple areas of abnormal attenuation. Correlation with MRI finding of a acute to subacute ischem ia within both cerebral hemispheres most noted within the right temporal lobe. No hyperdensities seen within the right temporal lobe by noncontrast technique. MRI was suggestive of a subacute to chronic right temporal hemorrhagic infarct. No significant midline shift or mass effect.
--- NOTE | 2023-04-01 14:10 | P.PN ---
Subjective Progress Note Date: 04/01/23 HISTORY OF PRESENT ILLNESS: This is an 82-year-old female with a previous medical history signi ficant for hyperlipidemia, epilepsy, vascular dementia, recent history of right temporal intracranial bleed that was diagnosed in 01/17/2023 at [facility] and she was sent to [facility] for evaluation by neurosurgery patient had a stormy and long hospital course down there and she ended up initially going to an extended care facility in the [facility] after that her and her son made in the right refer to be transferred to [facility] and she has been residing over there for the past 4 weeks, patient apparently has been quite agitated and has been getting Seroquel 300 mg at bedtime, and she has been having issues with not able to redirect or follow any commands, but I saw her myself Tuesday and she was doing much better she was sitting in her wheelchair, she was getting wheeled around the facility without any acute abnormalities, however today the nursing staff thought that the patient became quite lethargic and not able to answer commands at all she was quite sleepy so they decided to transfer her to the emergency department at [facility] for possible acute stroke, patient was scheduled to go for MRI of the brain that is scheduled as an outpatient for tomorrow morning, so the patient was seen in the ER and had a computed tomography scan of the brain that showed complete resolution of the intracranial hemorrhage that she had before, but because of the presentation she was kept in the hospital she had an episode of agitation after a few minutes and the patient did receive 1 dose of Haldol that helps her quite a bit, because of the changes of mentation and her metabolic encephalopathy she was admitted to the hospital with neurology evaluation. 03/31: Patient is seen today in follow-up. She's been afebrile, heart rate in the 70s, blood pressure 124/68. Pulse ox 95% on room air. Repeat CBC is unremarkable. telemetry is a sinus rhythm and will be discontinued. patient received multiple doses of Haldol last evening. Neurology is on consult. 04/01: This morning, patient was found to be unresponsive. Unsure how long pa giovanna has been unresponsive. Patient has been seen by neurology. MRI of the brain has been completed with evolving multi focal bilateral acute subacute infarcts more prominent in the left brain. Background mild to moderate diffuse cerebral atrophy and moderate to advanced chronic small vessel ischemic changes redemonstrated. Subacute on chronic lateral right temporal hemorrhagic infarct redemonstrated. Old left occipital lobe inferior infarct redemonstrated. Due to mental status changes this morning, a CAT scan of the brain was also ordered which found findings suspicious for punctate petechial hemorrhage right superior parietal lobe. EEG has been obtained and report is pending. Repeat chest x-ray reveals basilar atelectasis favored over pneumonia. Chronic granulomatous disease. Patient continues to have significant mental status changes. Patient is withdrawing from pain. She is unable to take any of her oral medications and she is unable to participate in any therapies ordered. Patient remains afebrile, heart rate in the 60s, blood pressure 94/58, pulse ox was 90% on room air this morning and she has been placed on a Ventimask REVIEW OF SYSTEMS: Constitutional: No documented fever, no chills, no night sweats. No weight change. No weakness, fatigue or lethargy. positive for daytime sleepiness. HEENT: No headache. No blurred vision or double vision, no loss of vision. No loss of Hearing, no ringing in the ears, no dizziness. No nasal drainage or congestion. No epistaxis. No sore throat. Lungs: No shortness of breath, no cough, no sputum production. No wheezing. Reports dyspnea with activity. Cardiovascular: No chest pain, no lower extremity edema. No palpitations. No paroxysmal nocturnal dyspnea. No orthopnea. No lightheadedness or dizziness. No syncopal episodes. Abdominal: Reports no abdominal pain. No nausea, vomiting. No diarrhea. No constipation. No bloody or tarry stools reports loss of appetite. Genitourinary: No dysuria, increased frequency, urgency. No urinary retention. Musculoskeletal: No myalgias. positive for muscle weakness, positive for gait dysfunction, no frequent falls. No back pain. No neck pain. Integumentary: No wounds, no lesions. No rash or pruritus. No unusual bruising. No change in hair or nails. Neurologic: No aphasia. No facial droop. positive for change in mentation, now unresponsive. No head injury. No headache. No paralysis. No paresthesia. Psychiatric: positive for depression. No anxiety. No mood swings. Endocrine: No abnormal blood sugars. No weight change. PHYSICAL EXAMINATION: General: 82-year-old female laying down in bed in no acute distress. HEENT: Head is atraumatic, normocephalic, pupils were equal round reactive to light and recommendation, extraocular muscle movement were intact, sclera nonicteric, conjunctivae were pale, mucous membranes of the mouth are somewhat dry. Neck: Supple, no JVP, normal carotid upstroke bilaterally, no lymphadenopathy. Chest: Decreased breath sounds at the bases, few rhonchi, no expiratory wheezes, no chest wall tenderness, no intercostal retractions. Heart: First heart sound is normal, second heart sound is normal there is systolic ejection murmur 2/6 located in the left sternal border. Abdomen: Soft, nontender, nondistended, positive bowel sounds. Extremities: There is no edema no calf tenderness DP +2 bilaterally. Neurologic examination: Patient is unresponsive. ASSESSMENT AND PLAN: 1. Metabolic encephalopathy secondary to evolving multifocal bilateral acute and subacute infarcts in the left brain and subsequent petechial hemorrhage in the right superior parietal lobe. Neurology consult appreciated. Please avoid Ativan. Consults with PT and OT unable to perform evaluations due to patient's mental status. Patient is unable to take any oral medications at this time. 2. Recent right temporal intracranial hemorrhage. Appears to have resolved. 3. Dementia with behavioral disturbance. I will start the patient on Haldol 0.25 mg M push every 8 hours, continue Namenda 5 mg twice every day as well as Aricept 10 mg at bedtime, continue Seroquel 300 mg at bedtime. 4. Mixed hyperlipidemia. Continue patient on atorvastatin 40 mg once every day as well as Zetia 10 mg once every day. 5. History of epilepsy. Continue carbamazepine 100 mg orally twice every day. 6. Insomnia. Continue Seroquel 300 mg at bedtime 7. DVT prophylaxis. Lovenox 40 mg subcutaneously every 24 hours 8. GI prophylaxis. Continue patient on Protonix 40 mg once every day. No code. Prognosis poor. Impression and plan of care have been directed as dictated by the signing physician. Alexia Lagos nurse practitioner acting as scribe for signing physician. Objective - Vital Signs Vital signs: Vital Signs Temp 97.5 F L 04/01/23 07:36 Pulse 68 04/01/23 09:34 Resp 15 05/19/23 07:36 BP 94/58 04/01/23 07:36 Pulse Ox 90 L 04/01/23 07:36 FiO2 35 04/01/23 09:31 Intake & Output 03/31/23 04/01/23 04/01/23 18:59 06:59 18:59 Intake Total 360 Balance 360 Intake: Oral 360 Other: Voiding Method Diaper # Voids 2 2 - Labs CBC & Chem 7: 03/31/23 07:14 03/31/23 07:14 Labs: Abnormal Lab Results - Last 24 Hours (Table) 03/31/23 Range/Units 07:14 BUN 7.6 L (9.0-27.0) mg/dL BUN/Creatinine Ratio 10.81 L (12.00-20.00) Ratio
--- NOTE | 2023-04-01 15:18 | EEG ---
DATE OF SERVICE: 03/31/2023 ELECTROENCEPHALOGRAM REPORT PREAMBLE: This is an 82-year-old female with history of seizure, came with altered mental status. EEG FINDINGS: This is a 21-channel digital EEG recorded with video component, utilizing 10/20 international system with referential and bipolar montages. Background consists of well-developed, poorly regulated, mixed frequencies of 4 to 6 hertz theta, intermixed with moderate amplitude delta slowing seen in bihemispheric region. Background does not seem to be reactive to eye opening or closing. Hyperventilation and photic stimulation were not done. Different stages of sleep were not seen. No definitive focal or generalized epileptiform activity was seen. IMPRESSION: This is an abnormal EEG due to background slowing and disorganization of moderate degree. This is suggestive of generalized cerebral dysfunction as can be seen with toxic metabolic encephalopathy, related to diffuse structural brain abnormality or postictal effect. No epileptiform activity was seen. Clinical correlation is recommended. MMSAMUEL / CHERISEN: [id number] / [id number]
--- NOTE | 2023-04-01 20:02 | P.PN ---
Subjective Progress Note Date: 04/01/23 Patient was seen for a follow-up earlier at 10:45 AM. Patient had just returned back from MRI. Patient continues to be clinically worse. Patient received Geodon 40 mg orally to calm her down before MRI. Now she is completely somnolent. Oxygen via face mask is being given. Per nursing report, patient was suctioned, not a lot of phlegm came. Her blood pressure was slightly low 97 systolic. Telemetry monitoring showing sinus rhythm in around 60s. Objective - Vital Signs Vital signs: Vital Signs Temp 97.5 F L 04/01/23 07:36 Pulse 68 04/01/23 09:34 Resp 15 04/01/23 07:36 BP 94/58 04/01/23 07:36 Pulse Ox 90 L 04/01/23 07:36 FiO2 35 04/01/23 09:31 Intake & Output 03/31/23 04/01/23 04/01/23 18:59 06:59 18:59 Intake Total 360 Balance 360 Intake: Oral 360 Other: Voiding Method Diaper # Voids 2 2 - Exam Patient is somnolent, from receiving Geodon. Patient does not follow directions. Detailed testing deferred. Pupils are equal, round and reacting. Gaze is midline. - Labs CBC & Chem 7: 03/31/23 07:14 03/31/23 07:14 Assessment and Plan Assessment: * Evolving multifocal bilateral acute/subacute infarcts more prominent in the left hemispheric region. Subacute on chronic lateral right temporal hemorrhagic infarct redemonstrated (no hemorrhage on CT head). Old left occipital lobe inferior infarct redemonstrated. 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 Plan: * MRI brain performed at 10:30 AM revealed evolving multifocal bilateral acute/subacute infarcts, more prominent in the left brain. Background mild to moderate diffuse cerebral atrophy and moderate to advanced chronic small vessel ischemic change redemonstrated. Subacute on chronic lateral right temporal hemorrhagic infarct redemonstrated. Old left occipital lobe inferior infarct redemonstrated. * EEG was abnormal due to background slowing and disorganization of moderate degree. This is suggestive of generalized cerebral dysfunction as can be seen with toxic metabolic encephalopathy, related to diffuse structural brain abnormality or postictal effect. No epileptiform activity was seen. * CTA of head and neck revealed no evidence of dissection of the cervical internal carotid arteries or vertebral arteries. Mild plaque at the carotid artery bifurcations without evidence of hemodynamically significant stenosis. No evidence of high-grade stenosis or intracranial aneurysm. * Patient has multiple new areas of ischemic infarction, but also evidence of old hemorrhagic right temporal infarct on MRI. CT did not show any obvious hemorrhage. Therefore given the risks and benefits, patient was given aspirin 300 mg rectally to prevent more ischemic strokes. * Repeat CT head performed subsequently at 12:35 PM for altered mental status revealed findings suspicious for a punctate petechial hemorrhage right superior parietal lobe. Multiple areas of abnormal attenuation. Correlate with MRI findings of acute subacute ischemia within both cerebral hemispheres, most noted within the right temporal lobe. No hyperdensities seen within the right temporal lobe noncontrast technique. MRI was suggestive of a subacute to chronic right temporal hemorrhagic infarct. No significant midline shift or mass effect. We will stop aspirin given new punctate petechial hemorrhage. * Patient is not able to take anything by mouth. She is not receiving her carbamazepine. Patient is at risk for seizures. Patient is ALLERGIC to Dil antin. We will start Vimpat for seizure prophylaxis. * Stat 2-D echo to evaluate for embolic source. * Start telemetry monitoring. So far showing sinus rhythm in the heart rate of 60s. * B12 377, folate 5.9 and TSH 2.23. * Saw patient two different times, but not able to contact family members. * Patient's prognosis appears very guarded based upon new ischemic and hemorrhagic strokes.
[2023-04-01] MEDS ORDERED: Lacosamide IV (ages 17+ yrs) 200 MG/20 ML ML IVP SCH (21:00)
[2023-04-01] MEDS: DONEPEZIL 10 MG TAB PO SCH (22:34)
[2023-04-01] MEDS: QUEtiapine 100 MG TAB PO SCH (22:34)
[2023-04-02] MEDS: PANTOPRAZOLE 40 MG TABLET PO SCH (06:43)
[2023-04-02] MEDS: EZETIMIBE 10 MG TAB PO SCH (08:53)
[2023-04-02] MEDS: ATORVASTATIN 40 MG TAB PO SCH (08:53)
[2023-04-02] MEDS: MEMANTINE 5 MG TAB PO SCH (08:53)
[2023-04-02] MEDS ORDERED: ASPIRIN 81 MG PO SCH (09:00)
--- NOTE | 2023-04-02 13:46 | CA ---
Transthoracic Echo Report Name: Moira Hubbard Age: 82 Gender: F : 1940 Exam Date: 04/01/2023 14:10 Exam Location: [facility] Ht (in): 66 Wt (lb): 145 Ordering Physician: Salvatore Jones DO Attending/Referring Phys: Perry Holden MD [employer] [facility] Procedure CPT: Indications: Acute multifocal CVA, cardiac source Cardiac Hx: Bubble study performed. CVA Technical Quality: Fair Contrast 1: Total Dose (mL): Contrast 2: Total Dose (mL): MEASUREMENTS (Male / Female) Normal Values 2D ECHO LV Diastolic Diameter PLAX 4.0 cm 4.2 - 5.9 / 3.9 - 5.3 cm IVS Diastolic Thickness 1.0 cm 0.6 - 1.0 / 0.6 - 0.9 cm LVPW Diastolic Thickness 1.1 cm 0.6 - 1.0 / 0.6 - 0.9 cm LV Relative Wall Thickness 0.5 RV Internal Dim ED PLAX 3.3 cm LVOT Diameter 1.9 cm Aortic Root Diameter 2.7 cm LA Systolic Diameter LX 2.2 cm 3.0 - 4.0 / 2.7 - 3.8 cm LV Diastolic Volume MOD BP 42.7 cm??? 67 - 155 / 56 - 104 cm??? LV Systolic Volume MOD BP 20.5 cm??? 22 - 58 / 19 - 49 cm??? LV Ejection Fraction MOD BP 52.1 % >= 55 % LV Diastolic Volume MOD 4C 33.7 cm??? LV Systolic Volume MOD 4C 16.0 cm??? LV Ejection Fraction MOD 4C 52.5 % LV Diastolic Length 4C 5.4 cm LV Systolic Length 4C 5.2 cm LV Diastolic Volume MOD 2C 46.7 cm??? LV Systolic Volume MOD 2C 22.6 cm??? LV Ejection Fraction MOD 2C 51.6 % LV Diastolic Length 2C 6.3 cm LV Systolic Length 2C 6.1 cm Ascending Aorta Diameter 3.0 cm DOPPLER AV Peak Velocity 110.5 cm/s AV Peak Gradient 4.9 mmHg MR Peak Velocity 433.0 cm/s MR Peak Gradient 75.0 mmHg Mitral E Point Velocity 64.6 cm/s Mitral A Point Velocity 66.9 cm/s Mitral E to A Ratio 1.0 MV Deceleration Time 215.0 ms TR Peak Velocity 148.9 cm/s TR Peak Gradient 8.9 mmHg Right Ventricular Systolic Press 13.9 mmHg FINDINGS Left Ventricle Left ventricular ejection fraction is estimated at 50-55 %. Right Ventricle Normal right ventricular size and function. Right Atrium Normal right atrial size. Left Atrium Negative Bubble study. LA Volume Index =18.4 ml/m2 Mitral Valve Structurally normal mitral valve. Mild MR. Aortic Valve Trileaflet aortic valve. No aortic valve stenosis or regurgitation. Tricuspid Valve Structurally normal tricuspid valve. Trace tricuspid regurgitation. Pulmonic Valve Pulmonic valve not well visualized. No pulmonic regurgitation. Pericardium Normal pericardium. Aorta Normal size aortic root and proximal ascending aorta. CONCLUSIONS Normal LV function Negative bubble study Previewed by: Dr. Marcus Chapman MD (Electronically Signed) Final Date: 02 Apr 2023 13:45
[2023-04-02] MEDS: HALOPERIDOL LACTATE 5 MG/ML 1 ML VIAL IVP PRN (15:09)
[2023-04-02] MEDS: ZIPRASIDONE 20 MG VIAL IM PRN (16:23)
[2023-04-02] MEDS: QUEtiapine 100 MG TAB PO SCH (18:29)
--- NOTE | 2023-04-02 22:14 | CT ---
EXAMINATION TYPE: CT brain wo con CT DLP: 1157.4 mGycm, Automated exposure control for dose reduction was used. DATE OF EXAM: 04/02/2023 9:29 PM COMPARISON: CT brain 04/01/2023, MR brain 04/01/2023. CLINICAL INDICATION:Female, 82 years old with history of folllow up bleed, AMS TECHNIQUE: Brain: Axial CT images of the brain were obtained with coronal and sagittal reformats created and rev iewed. Contrast used: None. Oral contrast used: None. FINDINGS: Brain: Extra-axial spaces: No abnormal extra-axial fluid collections. Ventricular system: Dilatation in proportion to cerebral atrophy. Cerebral parenchyma: Cerebral atrophy. Redemonstration of hypoattenuation within the lateral right te mporal lobe consistent with subacute on chronic infarct. Additional multifocal areas of hypoattenuati on are noted in the superior right frontal lobe, left parietal lobe and left ribera radiata, which ar e consistent with evolving infarcts characterized on recent MRI. Area of remote ischemia with encepha lomalacia involving the inferior left occipital lobe. No new areas of ischemia. Previously noted hyperdense focus in the right superior parietal lobe is not appreciated on today's e xamination. No new areas of intracranial hemorrhage. Patchy hypoattenuation of the periventricular wh ite matter which is similar to prior and consistent with chronic small vessel ischemia. Cerebellum: Unremarkable. Mass effect: No evidence of midline shift. Intracranial vasculature: Atherosclerotic calcifications of the intracranial vessels. Soft tissues: Normal. Calvarium/osseous structures: No depressed skull fracture. Paranasal sinuses and mastoid air cells: Mild scattered paranasal sinus disease.. Few opacified left mastoid air cells. Visualized orbits: Orbital contents are intact. IMPRESSION: 1. No acute intracranial hemorrhage. Previously noted focus suspicious for petechial hemorrhage is no t seen on today's exam. 2. Redemonstration of multifocal areas of hypoattenuation within the bilateral cerebral hemispheres, consistent with evolving subacute infarcts. This is better characterized on recent MR from 04/01/2023. 3. Redemonstration of subacute on chronic right lateral temporal lobe infarct. 4. Nonspecific white matter changes which are likely related to chronic microangiopathy. Remote infar ct with encephalomalacia in the left occipital lobe. 5. Additional incidental findings as detailed above.
--- NOTE | 2023-04-02 23:39 | PN ---
PROGRESS NOTE DATE OF SERVICE: 04/02/2023 SUBJECTIVE: This is an 82-year-old woman, who was admitted with acute metabolic encephalopathy, possibly multifactorial, also had recent right temporal intracranial hemorrhage also. The patient continues to be confused. OBJECTIVE: VITAL SIGNS: Pulse is 69, blood pressure 198/70, respirations 16. CHEST: Clear to auscultation. CARDIOVASCULAR: S1, S2 muffled. ABDOMEN: Soft. NERVOUS SYSTEM: Could not be examined completely. LABORATORY DATA: Reviewed. ASSESSMENT: 1. Acute metabolic encephalopathy, multifactorial. 2. Recent right temporal intracranial hemorrhage. 3. Dementia. 4. Hyperlipidemia. 5. Epilepsy. 6. Multiple medical issues. 7. No code. No CPR. No vent. RECOMMENDATIONS AND DISCUSSION: Recommend to continue current medications, continue symptomatic treatment. Otherwise, I would recommend a small dose of Haldol. Otherwise, the patient is on Seroquel 300 mg at bedtime. We will continue to monitor. Guarded prognosis. Further recommendations to follow. See orders for further details. MMODL / IJN: [id number] /
[2023-04-03] MEDS: DONEPEZIL 10 MG TAB PO SCH ×2 (02:33→21:28)
[2023-04-03] MEDS: MEMANTINE 5 MG TAB PO SCH ×3 (02:34→21:28)
[2023-04-03] MEDS: PANTOPRAZOLE 40 MG TABLET PO SCH (06:35)
[2023-04-03 08:21] LABS: Basophils % (A) 0 %; Eosinophils # (A) 0.3 k/uL (0-0.7); Eosinophils % (A) 4 %; HCT 49.4 % (34.0-46.0); HGB 15.8 gm/dL (11.4-16.0); Lymphocytes # (A) 0.9 k/uL (1.0-4.8); Lymphocytes % (A) 14 %; MCH 29.2 pg (25.0-35.0); MCV 91.2 fL (80.0-100.0); Mean Platelet Volume 7.6; Monocytes # (A) 0.3 k/uL (0-1.0); Monocytes % (A) 5 %; Neutrophils # (A) 4.8 k/uL (1.3-7.7); Neutrophils % (A) 75 %; Platelet Count 259 k/uL (150-450); RBC 5.41 m/uL (3.80-5.40); RDW 13.5 % (11.5-15.5); WBC 6.5 k/uL (3.8-10.6)
[2023-04-03 08:34] LABS: African American GFR (CKD) >90 (>60 ml/min/1.73 sqM); Anion Gap 7 mmol/L; Blood Urea Nitrogen 10 mg/dL (7-17); Calcium 9.4 mg/dL (8.4-10.2); Carbon Dioxide 32 mmol/L (22-30); Chloride 100 mmol/L (98-107); Glucose 181 mg/dL (74-99); Non-African American GFR(CKD) 82 (>60 ml/min/1.73 sqM); Potassium 3.9 mmol/L (3.5-5.1); Sodium 139 mmol/L (137-145)
[2023-04-03] MEDS: ATORVASTATIN 40 MG TAB PO SCH (09:00)
[2023-04-03] MEDS: HALOPERIDOL LACTATE 5 MG/ML 1 ML VIAL IVP PRN ×2 (09:01→22:24)
[2023-04-03] MEDS: EZETIMIBE 10 MG TAB PO SCH (09:01)
[2023-04-03] MEDS: ASPIRIN 81 MG PO SCH (09:01)
[2023-04-03] MEDS: ZIPRASIDONE 20 MG VIAL IM PRN (10:21)
--- NOTE | 2023-04-03 10:21 | P.PN ---
Subjective Progress Note Date: 04/02/23 Patient was seen for a follow-up. Patient's was present today. Patient is very emotional, crying. Per nursing report, she was asleep in the morning. She woke up, ate lunch and shortly after became agitated. Objective - Vital Signs Vital signs: Vital Signs Temp 98.4 F 04/02/23 08:35 Pulse 97 04/02/23 08:35 Resp 17 04/02/23 08:35 BP 173/65 04/02/23 08:35 Pulse Ox 100 04/02/23 08:35 FiO2 30 04/01/23 16:05 Intake & Output 04/01/23 04/02/23 04/02/23 18:59 06:59 18:59 Intake Total 360 540 780 Balance 360 540 780 Intake: Oral 360 540 780 Other: Voiding Method Diaper Diaper Incontinent Incontinent # Voids 1 - Exam Patient is much more alert and awake, patient is moving all 4 extremities. She is very emotional, crying, not cooperating with examination. Face appears symmetric. - Labs CBC & Chem 7: 04/03/23 07:48 04/03/23 07:48 Assessment and Plan Assessment: * Evolving multifocal bilateral acute/subacute infarcts more prominent in the left hemispheric region. Subacute on chronic lateral right temporal hemorrhagic infarct redemonstrated (no hemorrhage on CT head). Old left occipital lobe inferior infarct redemonstrated. 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 Plan: * Patient is clinically improved. We will repeat CT head today. If no evidence of obvious hemorrhage, we will resume aspirin 81 mg daily. Patient's was notified about the risks and benefits of aspirin. * Repeat CT head performed today revealed no acute intracranial hemorrhage. Previously noted focus suspicious for petechial hemorrhage is not seen on today's exam. Redemonstration of multifocal areas of hypoattenuation within the bilateral cerebral hemispheres, consistent with evolving subacute infar cts. This is better characterized on recent MRI from 04/01/2023. Redemonstration of subacute on chronic right lateral temporal lobe infarct. Nonspecific white matter changes from angiopathy. Remote infarct with insufflation in the left occipital lobe. I personally reviewed CT head, agree with the findings. * MRI brain performed at 10:30 AM revealed evolving multifocal bilateral ac [place]/subacute infarcts, more prominent in the left brain. Background mild to moderate diffuse cerebral atrophy and moderate to advanced chronic small vessel ischemic change redemonstrated. Subacute on chronic lateral right temporal hemorrhagic infarct redemonstrated. Old left occipital lobe inferior infarct redemonstrated. * EEG was abnormal due to background slowing and disorganization of moderate degree. This is suggestive of generalized cerebral dysfunction as can be seen with toxic metabolic encephalopathy, related to diffuse structural brain abnormality or postictal effect. No epileptiform activity was seen. * CTA of head and neck revealed no evidence of dissection of the cervical internal carotid arteries or vertebral arteries. Mild plaque at the carotid artery bifurcations without evidence of hemodynamically significant stenosis. No evidence of high-grade stenosis or intracranial aneurysm. * As patient is now able to take medication by mouth, Vimpat will be discontinued. Vimpat was never given. Patient to be continued on carbamazepine 200 mg twice a day. * 2-D echo revealed normal left ventricular function with EF 50-55%. Negative bubble study for PFO. * Continue telemetry. * B12 377, folate 5.9 and TSH 2.23. * Patient's prognosis appears very guarded based upon new ischemic and hemorrhagic strokes. * Neurologically clear for transfer to rehab facility. If agitation persists, suggest psychiatric consultation.
[2023-04-03] MEDS: QUEtiapine 100 MG TAB PO SCH (21:28)
[2023-04-04 00:19] VITALS: RESP 16
--- NOTE | 2023-04-04 01:57 | P.PN ---
Subjective Progress Note Date: 04/03/23 Patient was seen for a follow-up. Patient's daughter was present today. Patient is doing much better. Patient is in her wheelchair, and her daughter driving her wheelchair around in the hallway. Patient is much more pleasant, but confused significantly from her dementia. No further seizure or stroke like symptoms. Objective - Vital Signs Vital signs: Vital Signs Temp 97.8 F 04/03/23 12:10 Pulse 85 04/03/23 12:10 Resp 16 04/03/23 12:10 BP 140/67 04/03/23 12:10 Pulse Ox 94 L 04/03/23 12:10 FiO2 30 04/01/23 16:05 Intake & Output 04/02/23 04/03/23 04/03/23 18:59 06:59 18:59 Intake Total 780 240 Balance 780 240 Intake: Oral 780 240 Other: Voiding Method Diaper Diaper Diaper Incontinent Incontinent Incontinent # Voids 3 1 1 - Exam Patient is much more alert and awake, patient is moving all 4 extremities. She is much pleasant today. Patient not able to recognize her daughter or son-in-law. Her face appears symmetric. No rash. - Labs CBC & Chem 7: 04/03/23 07:48 04/03/23 07:48 Labs: Abnormal Lab Results - Last 24 Hours (Table) 04/03/23 04/03/23 Range/Units 07:48 07:48 RBC 5.41 H (3.80-5.40) m/uL Hct 49.4 H (34.0-46.0) % Lymphocytes # 0.9 L (1.0-4.8) k/uL Carbon Dioxide 32 H (22-30) mmol/L Glucose 181 H (74-99) mg/dL Assessment and Plan Assessment: * Evolving multifocal bilateral acute/subacute infarcts more prominent in the left hemispheric region. Subacute on chronic lateral right temporal hemorrhagic infarct redemonstrated (no hemorrhage on CT head). Old left occipital lobe inferior infarct redemonstrated. 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 Plan: * Patient is clinically improved. Patient has not had any more seizure type spells. No further TIAs. Patient is doing well on aspirin 81 mg daily and h igher dose of Tegretol. Patient's dementia has got worse with this current CVA. Continue Namenda and donepezil. Neurologically clear for discharge. * Repeat CT head 04/02/2023 revealed no acute intracranial hemorrhage. Previously noted focus suspicious for petechial hemorrhage is not seen on today's exam. Redemonstration of multifocal areas of hypoattenuation within the bilateral cerebral hemispheres, consistent with evolving subacute infarcts. This is better characterized on recent MRI from 04/01/2023. Redemonstration of subacute on chronic right lateral temporal lobe infarct. Nonspecific white matter changes from angiopathy. Remote infarct with insufflation in the left occipital lobe. I personally reviewed CT head, agree with the findings. * MRI brain performed at 10:30 AM revealed evolving multifocal bilateral acute/subacute infarcts, more prominent in the left brain. Background mild to moderate diffuse cerebral atrophy and moderate to advanced chronic small vessel ischemic change redemonstrated. Subacute on chronic lateral right temporal hemorrhagic infarct redemonstrated. Old left occipital lobe inferior infarct redemonstrated. I reviewed patient's MRI of the brain on the computer personally, and also reviewed the films on the computer with patient's daughter and son-in-law today. * EEG was abnormal due to background slowing and disorganization of moderate degree. This is suggestive of generalized cerebral dysfunction as can be seen with toxic metabolic encephalopathy, related to diffuse structural brain abnormality or postictal effect. No epileptiform activity was seen. * CTA of head and neck revealed no evidence of dissection of the cervical internal carotid arteries or vertebral arteries. Mild plaque at the carotid artery bifurcations without evidence of hemodynamically significant stenosis. No evidence of high-grade stenosis or intracranial aneurysm. * Continue carbamazepine 200 mg twice a day. * 2-D echo revealed normal left ventricular function with EF 50-55%. Negative bubble study for PFO. * B12 377, folate 5.9 and TSH 2.23. * Patient's prognosis appears guarded based upon new ischemic and hemorrhagic strokes. * Neurologically clear for transfer to rehab facility. Neurology will sign off. Please reconsult neurology if any concerns. Dr. Doran starting service from morning.
[2023-04-04] MEDS ORDERED: CYANOCOBALAMIN 1,000 MCG/ML 1 ML VIAL IM ONE ×2 (02:01→09:00)
--- NOTE | 2023-04-04 03:04 | PN ---
PROGRESS NOTE DATE OF SERVICE: 04/03/2023 I am covering for Dr. Onofre. SUBJECTIVE: This 82-year-old woman is admitted with encephalopathy, continues to be confused. The patient needed p.r.n. Haldol. The patient also received Geodon. The patient is confused. OBJECTIVE: VITAL SIGNS: Pulse 85,respiration 16. CHEST: Clear to auscultation. CARDIOVASCULAR: S1, S2. ABDOMEN: Soft. LABORATORY DATA: Reviewed. ASSESSMENT: 1. Acute metabolic toxic encephalopathy, multifactorial. 2. Recent right temporal intracranial hemorrhage. 3. Dementia. 4. Hyperlipidemia. 5. History of epilepsy. 6. Multiple medical issues. 7. No code. No CPR. No vent. RECOMMENDATIONS AND DISCUSSION: Recommend to continue current medications, continue symptomatic treatment, closely follow with multiple consultants. christa Bustillo. Dr. Onofre will follow tomorrow. Prognosis guarded. MMODL / IJN: [id number] / MTDD
[2023-04-04] MEDS: PANTOPRAZOLE 40 MG TABLET PO SCH (06:36)
[2023-04-04] MEDS ORDERED: FOLIC ACID 1 MG TAB PO SCH (09:00)
[2023-04-04] MEDS: ATORVASTATIN 40 MG TAB PO SCH (09:26)
[2023-04-04] MEDS: EZETIMIBE 10 MG TAB PO SCH (09:26)
[2023-04-04] MEDS: ASPIRIN 81 MG PO SCH (09:26)
[2023-04-04] MEDS: MEMANTINE 5 MG TAB PO SCH (09:27)
[2023-04-04 10:51] VITALS: TEMP 98.3
[2023-04-04 12:42] VITALS: BP 142/93
--- NOTE | 2023-04-04 13:14 | P.DS ---
Providers Date of admission: 03/30/23 15:12 Expected date of discharge: 04/04/23 Attending physician: Cris Onofre Consults: 03/30/23 15:12 Consult Physician Urgent Consulting Provider: May Souza Consult Reason/Comments: acute encephalopathy, hx hemorrhagic cva Do you want consulting provider notified?: Yes Primary care physician: Cris Onofre Hospital Course: HISTORY OF PRESENT ILLNESS: This is an 82-year-old female with a previous medical history significant for hyperlipidemia, epilepsy, vascular dementia, recent history of right temporal intracranial bleed that was diagnosed in 01/17/2023 at [facility] and she was sent to [facility] for evaluation by neurosurgery patient had a stormy and long hospital course down there and she ended up initially going to an extended care facility in the [facility] after that her and her son made in the right refer to be transferred to [facility] and she has been residing over there for the past 4 weeks, patient apparently has been quite agitated and has been getting Seroquel 300 mg at bedtime, and she has been having issues with not able to redirect or follow any commands, but I saw her myself Tuesday and she was doing much better she was sitting in her wheelchair, she was getting wheeled around the facility without any acute abnormalities, however today the nursing staff thought that the patient became quite lethargic and not able to answer commands at all she was quite sleepy so they decided to transfer her to the emergency department at [facility] for possible acute stroke, patient was scheduled to go for MRI of the brain that is scheduled as an outpatient for tomorrow morning, so the patient was seen in the ER and had a computed tomography scan of the brain that showed complete resolution of the intracranial hemorrhage that she had before, but because of the presentation she was kept in the hospital she had an episode of agitation after a few minutes and the patient did receive 1 dose of Haldol that helps her quite a bit, because of the changes of mentation and her metabolic encephalopathy she was admitted to the hospital with neurology e valuation. 03/31: Patient is seen today in follow-up. She's been afebrile, heart rate in the 70s, blood pressure 124/68. Pulse ox 95% on room air. Repeat CBC is unremarkable. telemetry is a sinus rhythm and will be discontinued. patient received multiple doses of Haldol last evening. Neurology is on consult. 04/01: This morning, patient was found to be unresponsive. Unsure how long patient has been unresponsive. Patient has been seen by neurology. MRI of the brain has been completed with evolving multi focal bilateral acute subacute infarcts more prominent in the left brain. Background mild to moderate diffuse cerebral atrophy and moderate to advanced chronic small vessel ischemic changes redemonstrated. Subacute on chronic lateral right temporal hemorrhagic infarct redemonstrated. Old left occipital lobe inferior infarct redemonstrated. Due to mental status changes this morning, a CAT scan of the brain was also ordered which found findings suspicious for punctate petechial hemorrhage right superior parietal lobe. EEG has been obtained and report is pending. Repeat chest x-ray reveals basilar atelectasis favored over pneumonia. Chronic granulomatous disease. Patient continues to have significant mental status changes. Patient is withdrawing from pain. She is unable to take any of her oral medications and she is unable to participate in any therapies ordered. Patient remains afebrile, heart rate in the 60s, blood pressure 94/58, pulse ox was 90% on room air this morning and she has been placed on a Ventimask. 04/04: Patient did well over the weekend with improvement of her mental status. She is more awake but continues to have significant confusion due to her underlying dementia. She is able to be wheeled around in her wheelchair in the hallway. She has no seizure and no strokelike symptoms. Patient denies headache. She is eating well with good appetite today No difficulty with swallowing. Neurology has recommended inor med changes addressed in discharge med rec. [facility]. DISCHARGE DIAGNOSES: 1. Metabolic encephalopathy secondary to evolving multifocal bilateral acute and subacute ischemic infarcts in the left brain and subsequent petechial hemorrhage in the right superior parietal lobe. 2. Recent right temporal intracranial hemorrhage. 3. Dementia with behavioral disturbance. 4. Mixed hyperlipidemia. 5. History of epilepsy. 6. Insomnia. Discharge plan: Greater than 35 minutes was utilized and coordinating patient's discharge. Impression and plan of care have been directed as dictated by the signing physician. Alexia Lagos nurse practitioner acting as scribe for signing physician. Patient Condition at Discharge: Stable Plan - Discharge Summary Discharge Rx Participant: No New Discharge Prescriptions: New Folic Acid 1 mg PO DAILY tab Cyanocobalamin [Vitamin B-12] 1,000 mcg PO DAILY tab Aspirin 81 mg PO DAILY tab Atorvastatin [Lipitor] 40 mg PO DAILY #0 tab Continue Acetaminophen [Tylenol] 650 mg PO Q4H PRN PRN Reason: Pain Memantine [Namenda] 5 mg PO BID QUEtiapine FUMARATE [SEROquel] 300 mg PO HS Melatonin 10 mg PO HS Ezetimibe [Zetia] 10 mg PO DAILY Donepezil HCl [Aricept] 10 mg PO HS Omeprazole [PriLOSEC] 20 mg PO DAILY Changed carBAMazepine 200 mg PO BID #0 Discharge Medication List Acetaminophen [Tylenol] 650 mg PO Q4H PRN 03/30/23 [History] Donepezil HCl [Aricept] 10 mg PO HS 03/30/23 [History] Ezetimibe [Zetia] 10 mg PO DAILY 03/30/23 [History] Melatonin 10 mg PO HS 03/30/23 [History] Memantine [Namenda] 5 mg PO BID 03/30/23 [History] Omeprazole [PriLOSEC] 20 mg PO DAILY 03/30/23 [History] QUEtiapine FUMARATE [SEROquel] 300 mg PO HS 03/30/23 [History] Aspirin 81 mg PO DAILY tab 04/04/23 [Rx] Atorvastatin [Lipitor] 40 mg PO DAILY #0 tab 04/04/23 [Rx] Cyanocobalamin [Vitamin B-12] 1,000 mcg PO DAILY tab 04/04/23 [Rx] Folic Acid 1 mg PO DAILY tab 04/04/23 [Rx] carBAMazepine 200 mg PO BID #0 04/04/23 [Rx] Follow up Appointment(s)/Referral(s): Cris Onofre MD [Primary Care Provider] - [facility] Week [facility] - 1 Week Activity/Diet/Wound Care/Special Instructions: Avoid Benzodiazepines Discharge Disposition: TRANSFER TO SNF/ECF
[2023-04-04 14:07] VITALS: PULSE 64
[2023-04-05] MEDS ORDERED: CYANOCOBALAMIN 500 MCG TAB PO SCH (09:00)
== END 2023-04-04 17:20 | DRG 64 ==
LOC: EC 12:49 → 5NMEDONC 15:12 → OBSVTOIN 15:12 → 5NMEDONC 16:33 → 3SCARD 04-01 13:43
PROVIDERS: ADMIT Internal Medicine; ATTEND Internal Medicine
DX: I62.9 Nontraumatic intracranial hemorrhage, unspecified (principal); G93.41 Metabolic encephalopathy; J98.11 Atelectasis; F01.511 Vascular dementia, unspecified severity, with agitation; D71 Functional disorders of polymorphonuclear neutrophils; E78.2 Mixed hyperlipidemia; R29.810 Facial weakness; R47.81 Slurred speech; I99.8 Other disorder of circulatory system; M85.80 Other specified disorders of bone density and structure, unspecified site; M19.90 Unspecified osteoarthritis, unspecified site; J44.9 Chronic obstructive pulmonary disease, unspecified; E78.5 Hyperlipidemia, unspecified; G40.909 Epilepsy, unspecified, not intractable, without status epilepticus; Z66 Do not resuscitate; G47.00 Insomnia, unspecified; Z79.899 Other long term (current) drug therapy; Z91.81 History of falling; Z87.820 Personal history of traumatic brain injury; Z88.8 Allergy status to other drugs, medicaments and biological substances
CPT/HCPCS: 36415; 70450; 70496; 70498; 70553; 71045; 71046; 80048; 80053; 80156; 81003; 82550; 82607; 82746; 84443; 84484; 85025; 85610; 85652; 85730; 93005; 93306; 94640; 94760; 95816; 96374; 99291

== ENCOUNTER 2023-04-10 10:41 | Emergency (ER) | payer MEDICARE ==
[2023-04-10 10:49] VITALS: RESP 16; TEMP 98
--- NOTE | 2023-04-10 11:31 | ED ---
General Adult HPI - General Chief complaint: Recheck/Abnormal Lab/Rx Stated complaint: Mental Health Time Seen by Provider: 04/10/23 10:42 Source: patient Mode of arrival: EMS Limitations: no limitations - History of Present Illness Initial comments: Dictation was produced using [employer] dictation software. please excuse any grammatical, word or spelling errors. Chief Complaint: 82-year-old female presents emergency department for aggressive behavior History of Present Illness: Is 82-year-old female past medical history of dementia presents to the ER for aggressive behavior. According to EMS patient has been pleasant and compliant cooperative. Patient at the bedside does not know why she is here. She has no complaints. unable to obtain ROS secondary to history of dementia - Related Data Home Medications Medication Instructions Recorded Confirmed Acetaminophen [Tylenol] 650 mg PO Q4H PRN 03/30/23 03/30/23 Donepezil HCl [Aricept] 10 mg PO HS 03/30/23 03/30/23 Ezetimibe [Zetia] 10 mg PO DAILY 03/30/23 03/30/23 Melatonin 10 mg PO HS 03/30/23 03/30/23 Memantine [Namenda] 5 mg PO BID 03/30/23 03/30/23 Omeprazole [PriLOSEC] 20 mg PO DAILY 03/30/23 03/30/23 QUEtiapine FUMARATE [SEROquel] 300 mg PO HS 03/30/23 03/30/23 Previous Rx's Medication Instructions Recorded Aspirin 81 mg PO DAILY tab 04/04/23 Atorvastatin [Lipitor] 40 mg PO DAILY #0 tab 04/04/23 Cyanocobalamin [Vitamin B-12] 1,000 mcg PO DAILY tab 04/04/23 Folic Acid 1 mg PO DAILY tab 04/04/23 carBAMazepine 200 mg PO BID #0 04/04/23 Allergies Allergy/AdvReac Type Severity Reaction Status Date / Time phenytoin [From Dilantin] AdvReac Unknown Verified 04/10/23 10:49 Review of Systems ROS Statement: Those systems with pertinent positive or pertinent negative responses have been documented in the HPI. ROS Other: All systems not noted in ROS Statement are negative. Past Medical History Past Medical History: Seizure Disorder Additional Past Medical History / Comment(s): Osteopenia, fall with headinjury, DEZ in 1979 History of Any Multi-Drug Resistant Organisms: None Reported Past Surgical History: Breast Surgery, Hysterectomy Additional Past Surgical History / Comment(s): mass removed from colon . Colonoscopy 2016(multiple) Past Psychological History: No Psychological Hx Reported Smoking Status: Never smoker Past Alcohol Use History: Rare Past Drug Use History: None Reported - Past Family History Mother Family Medical History: Coronary Artery Disease (CAD), Diabetes Mellitus General Exam - General Exam Comments Initial Comments: PHYSICAL EXAM: General Impression: Alert and oriented x3/4, not in acute distress HEENT: Normocephalic atraumatic, extra-ocular movements intact, pupils equal and reactive to light bilaterally, mucous membranes moist. Cardiovascular: Heart regular rate and rhythm Chest: Able to complete full sentences, no retractions, no tachypnea Abdomen: abdomen soft, non-tender, non-distended, no organomegaly Musculoskeletal: Pulses present and equal in all extremities, no peripheral edema Motor: no focal deficits noted Neurological: CN II-XII grossly intact, no focal motor or sensory deficits noted Skin: Intact with no visualized rashes Psych: Normal affect and mood Limitations: no limitations Course Vital Signs 04/10/23 10:44 Temperature 98 F Pulse Rate 67 Respiratory 16 Rate Blood Pressure 137/69 O2 Sat by Pulse 97 Oximetry Medical Decision Making - Medical Decision Making Was pt. sent in by a medical professional or institution (, PA, HISTOPATH TECH, urgent care, hospital, or prison...) When possible be specific @ -Sent from local prison Did you speak to anyone other than the patient for history (EMS, parent, family, police, friend...)? What history was obtained from this source @ -She presented patient here for aggressive behavior however she is been pleasant and cooperative.Some family arrived at the bedside states that patient was refusing her Geodon medication/was brought here. Did you review nursing and triage notes (agree or disagree)? Why? @ -I reviewed and agree with nursing and triage notes Were old charts reviewed (outside hosp., previous admission, EMS record, old EKG, old radiological studies, urgent care reports/EKG's, prison records)? Report findings @ -Nursing documentation was reviewed Differential Diagnosis (chest pain, altered mental status, abdominal pain women, abdominal pain men, vaginal bleeding, musculoskeletal, weakness, fever, dyspnea, syncope, headache, dizziness, GI bleed, back pain, seizure, CVA, palpatations, mental health)? @ -Differential Altered Mental Status: Hypoglycemia, DKA, hypercapnia, ETOH, overdose, CO poisoning, trauma, myxedema coma, HTN encephalopathy, infection, encephalitis, psychosis, intercranial hemorrhage, hepatic encephalopathy, meningitis, CVA, this is not meant to be an all-inclusive list EKG interpreted by me (3pts min.). @ -None done X-rays interpreted by me (1pt min.). @ -None done CT interpreted by me (1pt min.). @ -Computed tomography scan the brain shows no acute processes however there does appear to be some scattered foci of subacute CVA U/S interpreted by me (1pt. min.). @ -None done What testing was considered but not performed or refused? (CT, X-rays, U/S, labs)? Why? @ -None What meds were considered but not given or refused? Why? @ -None Did you discuss the management of the patient with other professionals (yarelis benton i.e. , PA, HISTOPATH TECH, lab, RT, psych nurse, home health care social worker, labor mediator, teacher, global chief experience officer, telehealth case manager)? Give summary @ -No Was smoking cessation discussed for >3mins.? @ -No Was critical care preformed (if so, how long)? @ -No Were there social determinants of health that impacted care today? How? (Homelessness, low income, unemployed, alcoholism, drug addiction, transportation, low edu. Level, literacy, decrease access to med. care, long-term, rehab)? @ -No Was there de-escalation of care discussed even if they declined (Discuss DNR or withdrawal of care, Hospice)? DNR status @ -No What co-morbidities impacted this encounter? (DM, HTN, Smoking, COPD, CAD, Cancer, CVA, ARF, Chemo, Hep., AIDS, mental health diagnosis, sleep apnea, morbid obesity)? @ -None Was patient admitted / discharged? Hospital course, mention meds given and route, prescriptions, significant lab abnormalities, going to OR and other pertinent info. @ -82 Year-old patient with history of past with dementia presents to the ER for evaluation of aggressive behavior. Patient is pleasant not aggressive towards staff. Computed tomography scan of the brain was obtained due to patient having positive history of intracranial hemorrhage and stroke. Vital signs stable. Patient is well-appearing at bedside. She does appear to be pleasantly confused. There was no history concerning for concerns of stroke. Family at the bedside felt that patient appeared to be baseline. They didn't want to pursue any further tests. Patient be discharge back to prison. Undiagnosed new problem with uncertain prognosis? @ -No Drug Therapy requiring intensive monitoring for toxicity (Heparin, Nitro, Insulin, Cardizem)? @ -No Were any procedures done? @ -No Diagnosis/symptom? Acute, or Chronic, or Acute on Chronic? Uncomplicated (without systemic symptoms) or Complicated (systemic symptoms)? @ -1. Aggressive behavior Side effects of treatment? @ -No Exacerbation, Progression, or Severe Exacerbation? @ -No Poses a threat to life or bodily function? How? (Chest pain, [place], [place], pneumonia, PE, COPD, DKA, ARF, appy, cholecystitis, CVA, Diverticulitis, Homicidal, Suicidal, threat to staff... and all critical care pts) @ -yes Disposition Clinical Impression: Aggressive behavior Disposition: HOME SELF-CARE Condition: Good Instructions (If sedation given, give patient instructions): Dementia (ED) Is patient prescribed a controlled substance at d/c from ED?: No Referrals: Cris Onofre MD [Primary Care Provider] - 1-2 days Time of Disposition: 12:47
--- NOTE | 2023-04-10 11:53 | CT ---
EXAMINATION TYPE: CT brain wo con CT DLP: 1188.4 mGycm, Automated exposure control for dose reduction was used. DATE OF EXAM: 04/10/2023 11:44 AM COMPARISON: MRI 04/01/2023. CLINICAL INDICATION:Female, 82 years old with history of mental status changes, hx of dementia, AMS TECHNIQUE: Brain: Axial CT images of the brain were obtained with coronal and sagittal reformats created and rev iewed. Contrast used: None. Oral contrast used: None. FINDINGS: Brain: Extra-axial spaces: No abnormal extra-axial fluid collections. Ventricular system: Dilatation in proportion to cerebral atrophy. Cerebral parenchyma: Low-attenuation areas involving the right lower lobe as well as scattered hypode nse areas in the area of prior restricted diffusion on MRI 04/01/2023. Scattered white matter changes some of which correspond to areas of CVA in the left frontal lobe. Cerebral atrophy. No acute intraparenchymal hemorrhage or mass effect. The remainder of the younger-whi te junctions are well differentiated. Scattered hypoattenuating areas are seen within the white matte r. Cerebellum: Unremarkable. Mass effect: No evidence of midline shift. Intracranial vasculature: Atherosclerotic calcifications of the intracranial vessels. Soft tissues: Normal. Calvarium/osseous structures: No depressed skull fracture. Paranasal sinuses and mastoid air cells: Mild scattered paranasal sinus disease. Visualized orbits: Orbital contents are intact. IMPRESSION: Continued evolution of right temporal lobe and scattered foci of subacute CVA foci as seen on prior M RI 04/01/2023. No evidence of hemorrhagic conversion. Consider follow-up MRI if there remains concern for new CVA.
[2023-04-10 13:07] VITALS: BP 140/86; PULSE 79
== END 2023-04-10 13:05 | disposition home or self-care (01) ==
LOC: EC 10:41
DX: R45.6 Violent behavior (principal); Z88.8 Allergy status to other drugs, medicaments and biological substances
CPT/HCPCS: 70450; 99285

== ENCOUNTER 2023-04-20 03:01 | Inpatient (IN) | payer MEDICARE ==
[2023-04-20] MEDS ORDERED: NOREPINEPHRINE 32 MG in SODIUM CHLORIDE 0.9% 218 ML IV ONE (03:05)
[2023-04-20] MEDS ORDERED: SODIUM CHLORIDE 0.9% 1,000 ML IV ONE ×2 (03:09)
[2023-04-20] MEDS ORDERED: MIDAZOLAM 1 MG/ML 5 ML VIAL IV STA ×3 (03:20→05:26)
[2023-04-20 03:22] LABS: Glucose,Whole Blood 94 mg/dL (70-110)
[2023-04-20] MEDS ORDERED: AMIODARONE 360 MG in DEXTROSE 5% IN WATER 200 ML IV ONE ×2 (03:29)
[2023-04-20] MEDS ORDERED: DEXTROSE 5% IN WATER 100 ML with AMIODARONE 150 MG IV ONE (03:29)
[2023-04-20 03:33] LABS: Basophils % (A) 0 %; Eosinophils % (A) 0 %; HCT 46.2 % (34.0-46.0); HGB 14.1 gm/dL (11.4-16.0); Hypochromasia Moderate; Lymphocytes # (A) 3.5 k/uL (1.0-4.8); Lymphocytes % (A) 21 %; MCH 29.7 pg (25.0-35.0); MCHC 30.6 g/dL (31.0-37.0); Mean Platelet Volume 8.4; Monocytes # (A) 0.5 k/uL (0-1.0); Monocytes % (A) 3 %; Neutrophils # (A) 12.6 k/uL (1.3-7.7); Neutrophils % (A) 75 %; Platelet Count 172 k/uL (150-450); RBC 4.76 m/uL (3.80-5.40); RDW 13.4 % (11.5-15.5); WBC 16.8 k/uL (3.8-10.6)
[2023-04-20 03:39] LABS: ABG Base Excess -11.5 mmol/L; ABG HCO3 16 mmol/L (21-25); ABG Oxygen Saturation 99.9 % (94-97); ABG PCO2 39 mmHg (35-45); ABG PH 7.23 (7.35-7.45); ABG PO2 240 mmHg (83-108); ABG TCO2 17 mmol/L (19-24); Allen Test Performed? Yes
[2023-04-20 03:48] LABS: ALT 50 U/L (4-34); AST 66 U/L (14-36); African American GFR (CKD) 64 (>60 ml/min/1.73 sqM); Albumin 3.1 g/dL (3.5-5.0); Alkaline Phosphatase 61 U/L (38-126); Anion Gap 19 mmol/L; Blood Urea Nitrogen 14 mg/dL (7-17); Calcium 8.1 mg/dL (8.4-10.2); Carbon Dioxide 13 mmol/L (22-30); Chloride 105 mmol/L (98-107); Glucose 351 mg/dL (74-99); Non-African American GFR(CKD) 56 (>60 ml/min/1.73 sqM); Sodium 137 mmol/L (137-145); Total Bilirubin 0.6 mg/dL (0.2-1.3); Total Protein 5.6 g/dL (6.3-8.2)
[2023-04-20 03:52] LABS: INR 1.2 (<1.2); Partial Thromboplastin Time 29.3 sec (22.0-30.0); Prothrombin Time 12.8 sec (9.0-12.0)
--- NOTE | 2023-04-20 03:53 | XR ---
EXAM: XR Chest, 1 View CLINICAL HISTORY: ITS.REASON XR Reason: altered mental status TECHNIQUE: Frontal view of the chest. COMPARISON: 04/01/2023 FINDINGS: Lungs: Bilateral upper lobe pulmonary consolidations. Pleural space: Unremarkable. No pneumothorax. No pleural effusions. Heart: Unremarkable. No cardiomegaly. Mediastinum: Unremarkable. Bones/joints: No acute osseous abnormalities. Tubes, lines and devices: Interval placement of endotracheal tube with tip 5 cm above the ryder. Interval placement of nasogastric tube in position with tip coursing off the film. IMPRESSION: 1. Bilateral upper lobe pulmonary consolidations. 2. Interval placement of endotracheal tube with tip 5 cm above the ryder. 3. Interval placement of nasogastric tube in position with tip coursing off the film.
[2023-04-20 04:02] LABS: Potassium 4.3 mmol/L (3.5-5.1)
[2023-04-20 04:16] LABS: Appearance,Urine Cloudy (Clear); Bilirubin,Urine Negative (Negative); Blood,Urine Small (Negative); Color,Urine Yellow; Glucose,Urine (UA) 1+ (Negative); Hyaline Casts,Urine 85 /lpf (0-2); Ketones,Urine Negative (Negative); Leukocyte Esterase,Urine Negative (Negative); Mucus,Urine Many /hpf; Nitrite,Urine Negative (Negative); Protein,Urine 2+ (Negative); RBC,Urine 3 /hpf (0-5); Specific Gravity,Urine 1.023 (1.001-1.035); Squamous Epithelial Cell,Urine 1 /hpf (0-4); Urobilinogen,Urine <2.0 mg/dL (<2.0); WBC,Urine 2 /hpf (0-5)
[2023-04-20 04:17] LABS: Amphetamine Screen,Urine Detected (NotDetected); Barbiturate Screen,Urine Not Detected (NotDetected); Benzodiazepines Screen,Urine Not Detected (NotDetected); Cocaine Screen,Urine Not Detected (NotDetected); Methadone Screen, Urine Not Detected (NotDetected); Opiate Screen,Urine Not Detected (NotDetected); Oxycodone Screen, Urine Not Detected (NotDetected); Phencyclidine Screen,Urine Not Detected (NotDetected); Tricyclic Antidepressant,Urine Not Detected (NotDetected); Urn Cannabinoid Scrn Not Detected (NotDetected)
[2023-04-20] MEDS ORDERED: NALOXONE 0.4 MG/ML 1 ML VIAL IV PRN ×2 (04:19→04:20)
[2023-04-20] MEDS ORDERED: SODIUM CHLORIDE 0.9% 1,000 ML IV SCH (04:30)
--- NOTE | 2023-04-20 04:59 | ED ---
General Adult HPI - General Chief complaint: Cardiac Arrest/CPR Stated complaint: Cardiac Arrest Source: EMS, RN notes reviewed, old records reviewed Mode of arrival: EMS - History of Present Illness Initial comments: Patient is an 82-year-old female with past medical history remarkable for seizure disorder, dementia, with confusion whether the patient is DO NOT RESUSCITATE and since emergency Department status post cardiac arrest. Patient had a cardiac arrest at her nursing facility. Nursing facility believes the patient is full code. Our paperwork shows that as of March last month she had paperwork signed that made her DO NOT RESUSCITATE. Signed by the patient's . Either way, patient was worked in the field for approximately 25 minutes. 5 Epis were administered. Patient had return of spontaneous circulation, however was in V. tach with a pulse and therefore was defibrillated 3 times by EMS. Presents sinus tachycardia, intubated, status post cardiac arrest. She does have softer blood pressures at this time. She has a liter of fluids hanging. EMS states that the patient had started witnessed collapse at the nursing facility. No known cardiac history. Presents for further evaluation at this time. Patient's is on the way. - Related Data Home Medications Medication Instructions Recorded Confirmed Acetaminophen [Tylenol] 650 mg PO Q4H PRN 03/30/23 03/30/23 Donepezil HCl [Aricept] 10 mg PO HS 03/30/23 03/30/23 Ezetimibe [Zetia] 10 mg PO DAILY 03/30/23 03/30/23 Melatonin 10 mg PO HS 03/30/23 03/30/23 Memantine [Namenda] 5 mg PO BID 03/30/23 03/30/23 Omeprazole [PriLOSEC] 20 mg PO DAILY 03/30/23 03/30/23 QUEtiapine FUMARATE [SEROquel] 300 mg PO HS 03/30/23 03/30/23 Previous Rx's Medication Instructions Recorded Aspirin 81 mg PO DAILY tab 04/04/23 Atorvastatin [Lipitor] 40 mg PO DAILY #0 tab 04/04/23 Cyanocobalamin [Vitamin B-12] 1,000 mcg PO DAILY tab 04/04/23 Folic Acid 1 mg PO DAILY tab 04/04/23 carBAMazepine 200 mg PO BID #0 04/04/23 Allergies Allergy/AdvReac Type Severity Reaction Status Date / Time phenytoin [From Dilantin] AdvReac Unknown Verified 04/10/23 10:49 Review of Systems ROS Statement: Those systems with pertinent positive or pertinent negative responses have been documented in the HPI. ROS Other: All systems not noted in ROS Statement are negative. Past Medical History Past Medical History: Seizure Disorder Additional Past Medical History / Comment(s): Osteopenia, fall with headinjury, DEZ in 1979 History of Any Multi-Drug Resistant Organisms: None Reported Past Surgical History: Breast Surgery, Hysterectomy Additional Past Surgical History / Comment(s): mass removed from colon . Colonoscopy 2016(multiple) Past Psychological History: No Psychological Hx Reported Smoking Status: Never smoker Past Alcohol Use History: Rare Past Drug Use History: None Reported - Past Family History Mother Family Medical History: Coronary Artery Disease (CAD), Diabetes Mellitus General Exam - General Exam Comments Initial Comments: General: Intubated HEAD: Normal with no signs of head trauma. EYES: Pupils are 2 mm and fixed at this time. No eye movements. ENT: ET tube in place. No stridor. Trachea midline. RESPIRATORY: Intubated and currently ventilated. Equal bilateral breath sounds. C/V: Tachycardic with a regular rhythm. S1 and S2 auscultated. Peripheral pulses 1+ and intact throughout. ABD: Abd is soft, nontender, nondistended EXT: No obvious deformities of the extremities. SKIN: No rashes or lesions observed on exposed skin. NEURO: Unresponsive. Course Vital Signs 04/20/23 04/20/23 04/20/23 03:01 03:04 03:13 Temperature 97.6 F Pulse Rate 108 H Respiratory 22 Rate Blood Pressure 79/45 O2 Sat by Pulse 96 Oximetry Fraction of 100 100 Inspired Oxygen (FIO2) 04/20/23 04/20/23 04/20/23 04:05 04:16 05:24 Temperature 97.1 F L Pulse Rate 80 90 Respiratory 20 28 H Rate Blood Pressure 86/50 O2 Sat by Pulse 98 96 Oximetry Fraction of 70 70 Inspired Oxygen (FIO2) Procedures - Central Line Placement Left Femoral Consent Obtained: emergent situation Patient Placed on Monitor/Pulse Ox: Yes MD Prep: mask, gown, gloves Central Line Prep: Chlorhexidine scrub Local Anesthesia Used: Lidocaine 2% Amount of Anesthesia Used (mls): 5 Ultrasound Used for Placement: Yes Central Line Lumen Inserted: triple Bloods Obtained for Lab: No Central Line Position: good blood return, all ports aspirated, flushed, capped, sutured in place with nylon Dressing Applied: Tegaderm Patient Tolerated Procedure: well Complications: none Medical Decision Making - Medical Decision Making Was pt. sent in by a medical professional or institution (, PA, ANTHROPOLOGY DEPARTMENT CHAIR, urgent care, hospital, or detention...) When possible be specific @ -Sent in by nursing facility after cardiac arrest at detention. Did you speak to anyone other than the patient for history (EMS, parent, family, police, friend...)? What history was obtained from this source @ -I spoke with EMS who provided the initial history. I then spoke with patient's and other family members who presented to the family room. Patient's name is Hamlet Hubbard. We did discuss CODE STATUS as well as patient's history. See below for CODE STATUS discussion. Did you review nursing and triage notes (agree or disagree)? Why? @ -I reviewed and agree with nursing and triage notes Were old charts reviewed (outside hosp., previous admission, EMS record, old EKG, old radiological studies, urgent care reports/EKG's, detention records)? Report findings @ -Old chart reviewed from March 2023. Recent intracranial bleed diagnosed January 2023. Differential Diagnosis (chest pain, altered mental status, abdominal pain women, abdominal pain men, vaginal bleeding, weakness, fever, dyspnea, syncope, headache, dizziness, GI bleed, back pain, seizure, CVA, palpatations, mental health, musculoskeletal)? @ -Cardiopulmonary arrest, STEMI, infection, this list is not all inclusive. EKG interpreted by me (3pts min.). @ -As above X-rays interpreted by me (1pt min.). @ -Chest x-ray reveals satisfactory ET tube placement. Patient does have bilateral upper lobe pulmonary consolidations likely secondary to recent chest compressions and cardiac arrest. CT interpreted by me (1pt min.). @ -CT brain reveals chronic infarcts. No acute findings. U/S interpreted by me (1pt. min.). @ -None done What testing was considered but not performed or refused? (CT, X-rays, U/S, labs)? Why? @ -None What meds were considered but not given or refused? Why? @ -None Did you discuss the management of the patient with other professionals (professionals i.e. , PA, ANTHROPOLOGY DEPARTMENT CHAIR, lab, RT, psych nurse, social media analyst, photogrammetric surveyor, teacher, geological technical officer, adult protective caseworker)? Give summary @ -Discuss the case with Dr. Baker of cardiology who was in agreement with the plan for medical management. Discussed the case with nurse practitioner Marshall of the ICU who accepted the patient to the ICU.Discussed with Dr. Onofre who accepted the patient.I spoke with Dr. Doran of neurology regarding heparin initiation considering the history of intracranial hemorrhage. He states that after reviewing the CT imaging, where he was in agreement with that benefits far outweigh the risks of starting heparin at this point concerning the patient has an acute GA. Was smoking cessation discussed for >3mins.? @ -No Was critical care preformed (if so, how long)? @ -Yes, 62 minutes. Were there social determinants of health that impacted care today? How? (Homelessness, low income, unemployed, alcoholism, drug addiction, transportation, low edu. Level, literacy, decrease access to med. care, shelter, rehab)? @ -No Was there de-escalation of care discussed even if they declined (Discuss DNR or withdrawal of care, Hospice)? DNR status @ -Discuss CODE STATUS with patient's Hamlet. The agreement and what is desired is no more CPR no more chest compressions. Patient will remain on support for now. Patient is officially DO NOT RESUSCITATE. However okay for pressors, as well as medical management. They do not want extensive procedures done such as heart catheterization or surgery. What co-morbidities impacted this encounter? (DM, HTN, Smoking, COPD, CAD, Cancer, CVA, ARF, Chemo, Hep., AIDS, mental health diagnosis, sleep apnea, morbid obesity)? @ -None Was patient admitted / discharged? Hospital course, mention meds given and route, prescriptions, significant lab abnormalities, going to OR and other pertinent info. @ -Patient presents status post cardiac arrest. He is intubated. Does have some mild movements but overall unresponsive. In the field patient received 5 epis. Down time was approximately 25 minutes per EMS. Patient was also defib rillated 3 times for V. tach with a pulse. Patient was started on IV fluids upon arrival. I confirmed ET tube placement via auscultation. 2 large bore IVs were placed. Patient's did present I spoke with him after attempting to contact him over the phone initially. I spoke with Hamlet Hubbard and person as well as family members that were with him. We discussed the patient's CODE STATUS that she does have a history of being DO NOT RESUSCITATE here as of last month. The nursing facility was unaware of this. He states that the patient would not want to be on life support. We discussed at length the patient's CODE STATUS. We came to the conclusion that patient will remain intubated on life support for now. If her heart were to stop, no compressions will be done. No CPR. If the patient requires vasopressors for blood pressure support, patient's family would like these administered. However they do not want any extraneous procedures or surgeries completed. We did discuss that EKG does appear to show a STEMI we did discuss the options of obtaining cardiac catheterization, however they do not want additional surgeries performed at this time. They requested medical management only at this time. Patient's was in agreement with this plan. Therefore, STEMI pager was not activated as patient will not be going to catheterization suite as family does not want this option at this time. They wish for medical management only. I did reach out and speak with Dr. Baker who is on-call for cardiology. He was in agreement with this plan. We will obtain CT brain prior to starting heparin, as the patient does have a history of a recent intracranial hemorrhage as of January of this year. We will also hold aspirin until that time. Patient will continue to receive medical support, including Levophed for hypotension revealed a left femoral central line that I placed. Chest x-ray reveals satisfactory placement of the ET tube as well as findings consistent with recent cardiac arrest. Labs were remarkable for leukocytosis of 16 which is likely reactive considering the recent cardiac arrest. Lactic acid is pending. Troponin is indeterminate at 0.024. Patient does have a metabolic acidosis. This is likely secondary to a lactic acidosis from the recent cardiac arrest, but lactate is still pending at this time. I did speak with Marshall, the nurse practitioner of ICU who accepted the patient. Dr. Trujillo is the ICU attending. Patient will go to the unit following CT brain. CT brain revealed no acute hemorrhagic infarct. Appears stable from prior CT f rom March 2023. Chronic infarcts present. At this time I did reach out to neurology on-call, Dr. Doran to discuss heparin administration. We reviewed the imaging, and he was in agreement that benefits far outweigh the risks at this point for the patient. Patient is no acute intracranial bleed. Believes heparin is appropriate for STEMI treatment. In therefore given a dose of rectal aspirin as well as started on heparin. Patient is already in the ICU and I did convey this to Marshall the nurse practitioner who was in agreement with the plan. Patient admitted in critical condition to the ICU. I spoke with Dr. Onofre who accepted the admission. Undiagnosed new problem with uncertain prognosis? @ -Yes Drug Therapy requiring intensive monitoring for toxicity (Heparin, Nitro, Insulin, Cardizem)? @ -No Were any procedures done? @ -Central line placement Diagnosis/symptom? @ -Cardiac arrest, STEMI, ventricular tachycardia Acute, or Chronic, or Acute on Chronic? @ -Acute Uncomplicated (without systemic symptoms) or Complicated (systemic symptoms)? @ -Complicated Side effects of treatment? @ -No Exacerbation, Progression, or Severe Exacerbation? @ -No Poses a threat to life or bodily function? How? (Chest pain, USA, GA, pneumonia, PE, COPD, DKA, ARF, appy, cholecystitis, CVA, Diverticulitis, Homicidal, Suicidal, threat to staff... and all critical care pts) @ -Yes - Lab Data Result diagrams: 04/20/23 03:09 04/20/23 03:09 Lab Results 04/20/23 04/20/23 04/20/23 Range/Units 03:09 03:09 03:09 WBC 16.8 H (3.8-10.6) k/uL RBC 4.76 (3.80-5.40) m/uL Hgb 14.1 (11.4-16.0) gm/dL Hct 46.2 H (34.0-46.0) % MCV 97.0 D (80.0-100.0) fL MCH 29.7 (25.0-35.0) pg MCHC 30.6 L (31.0-37.0) g/dL RDW 13.4 (11.5-15.5) % Plt Count 172 (150-450) k/uL MPV 8.4 Neutrophils % 75 % Lymphocytes % 21 % Monocytes % 3 % Eosinophils % 0 % Basophils % 0 % Neutrophils # 12.6 H (1.3-7.7) k/uL Lymphocytes # 3.5 (1.0-4.8) k/uL Monocytes # 0.5 (0-1.0) k/uL Eosinophils # 0.0 (0-0.7) k/uL Basophils # 0.0 (0-0.2) k/uL Hypochromasia Moderate PT 12.8 H (9.0-12.0) sec INR 1.2 H (<1.2) APTT 29.3 (22.0-30.0) sec Sample Site ABG pH (7.35-7.45) ABG pCO2 (35-45) mmHg ABG pO2 (83-108) mmHg ABG HCO3 (21-25) mmol/L ABG Total CO2 (19-24) mmol/L ABG O2 Saturation (94-97) % ABG Base Excess mmol/L Darci Test FiO2 % Sodium 137 (137-145) mmol/L Potassium 4.3 (3.5-5.1) mmol/L Chloride 105 (98-107) mmol/L Carbon Dioxide 13 L (22-30) mmol/L Anion Gap 19 mmol/L BUN 14 (7-17) mg/dL Creatinine 0.96 (0.52-1.04) mg/dL Est GFR (CKD-EPI)AfAm 64 (>60 ml/min/1.73 sqM) Est GFR (CKD-EPI)NonAf 56 (>60 ml/min/1.73 sqM) Glucose 351 H (74-99) mg/dL POC Glucose (mg/dL) (70-110) mg/dL POC Glu Platinum And Palladium Kettle Tender ID Calcium 8.1 L (8.4-10.2) mg/dL Total Bilirubin 0.6 (0.2-1.3) mg/dL AST 66 H (14-36) U/L ALT 50 H (4-34) U/L Alkaline Phosphatase 61 (38-126) U/L Troponin I (0.000-0.034) ng/mL Total Protein 5.6 L (6.3-8.2) g/dL Albumin 3.1 L (3.5-5.0) g/dL Urine Color Urine Appearance (Clear) Urine pH (5.0-8.0) Ur Specific [place] (1.001-1.035) Urine Protein (Negative) Urine Glucose (UA) (Negative) Urine Ketones (Negative) Urine Blood (Negative) Urine Nitrite (Negative) Urine Bilirubin (Negative) Urine Urobilinogen (<2.0) mg/dL Ur Leukocyte Esterase (Negative) Urine RBC (0-5) /hpf Urine WBC (0-5) /hpf Ur Squamous Epith Cells (0-4) /hpf Hyaline Casts (0-2) /lpf Urine Mucus (None) /hpf Urine Opiates Screen (NotDetected) Ur Oxycodone Screen (NotDetected) Urine Methadone Screen (NotDetected) Ur Propoxyphene Screen (NotDetected) Ur Barbiturates Screen (NotDetected) U Tricyclic Antidepress (NotDetected) Ur Phencyclidine Scrn (NotDetected) Ur Amphetamines Screen (NotDetected) U Methamphetamines Scrn (NotDetected) U Benzodiazepines Scrn (NotDetected) Urine Cocaine Screen (NotDetected) U Marijuana (THC) Screen (NotDetected) 04/20/23 04/20/23 04/20/23 Range/Units 03:09 03:11 03:28 WBC (3.8-10.6) k/uL RBC (3.80-5.40) m/uL Hgb (11.4-16.0) gm/dL Hct (34.0-46.0) % MCV (80.0-100.0) fL MCH (25.0-35.0) pg MCHC (31.0-37.0) g/dL RDW (11.5-15.5) % Plt Count (150-450) k/uL MPV Neutrophils % % Lymphocytes % % Monocytes % % Eosinophils % % Basophils % % Neutrophils # (1.3-7.7) k/uL Lymphocytes # (1.0-4.8) k/uL Monocytes # (0-1.0) k/uL Eosinophils # (0-0.7) k/uL Basophils # (0-0.2) k/uL Hypochromasia PT (9.0-12.0) sec INR (<1.2) APTT (22.0-30.0) sec Sample Site ABG pH (7.35-7.45) ABG pCO2 (35-45) mmHg ABG pO2 (83-108) mmHg ABG HCO3 (21-25) mmol/L ABG Total CO2 (19-24) mmol/L ABG O2 Saturation (94-97) % ABG Base Excess mmol/L Darci Test FiO2 % Sodium (137-145) mmol/L Potassium (3.5-5.1) mmol/L Chloride (98-107) mmol/L Carbon Dioxide (22-30) mmol/L Anion Gap mmol/L BUN (7-17) mg/dL Creatinine (0.52-1.04) mg/dL Est GFR (CKD-EPI)AfAm (>60 ml/min/1.73 sqM) Est GFR (CKD-EPI)NonAf (>60 ml/min/1.73 sqM) Glucose (74-99) mg/dL POC Glucose (mg/dL) 94 (70-110) mg/dL POC Glu Platinum And Palladium Kettle Tender ID Nikolas Suero Calcium (8.4-10.2) mg/dL Total Bilirubin (0.2-1.3) mg/dL AST (14-36) U/L ALT (4-34) U/L Alkaline Phosphatase (38-126) U/L Troponin I 0.024 (0.000-0.034) ng/mL Total Protein (6.3-8.2) g/dL Albumin (3.5-5.0) g/dL Urine Color Urine Appearance (Clear) Urine pH (5.0-8.0) Ur Specific [place] (1.001-1.035) Urine Protein (Negative) Urine Glucose (UA) (Negative) Urine Ketones (Negative) Urine Blood (Negative) Urine Nitrite (Negative) Urine Bilirubin (Negative) Urine Urobilinogen (<2.0) mg/dL Ur Leukocyte Esterase (Negative) Urine RBC (0-5) /hpf Urine WBC (0-5) /hpf Ur Squamous Epith Cells (0-4) /hpf Hyaline Casts (0-2) /lpf Urine Mucus (None) /hpf Urine Opiates Screen Not Detected (NotDetected) Ur Oxycodone Screen Not Detected (NotDetected) Urine Methadone Screen Not Detected (NotDetected) Ur Propoxyphene Screen Not Detected (NotDetected) Ur Barbiturates Screen Not Detected (NotDetected) U Tricyclic Antidepress Not Detected (NotDetected) Ur Phencyclidine Scrn Not Detected (NotDetected) Ur Amphetamines Screen Detected H (NotDetected) U Methamphetamines Scrn Not Detected (NotDetected) U Benzodiazepines Scrn Not Detected (NotDetected) Urine Cocaine Screen Not Detected (NotDetected) U Marijuana (THC) Screen Not Detected (NotDetected) 04/20/23 04/20/23 Range/Units 03:28 03:32 WBC (3.8-10.6) k/uL RBC (3.80-5.40) m/uL Hgb (11.4-16.0) gm/dL Hct (34.0-46.0) % MCV (80.0-100.0) fL MCH (25.0-35.0) pg MCHC (31.0-37.0) g/dL RDW (11.5-15.5) % Plt Count (150-450) k/uL MPV Neutrophils % % Lymphocytes % % Monocytes % % Eosinophils % % Basophils % % Neutrophils # (1.3-7.7) k/uL Lymphocytes # (1.0-4.8) k/uL Monocytes # (0-1.0) k/uL Eosinophils # (0-0.7) k/uL Basophils # (0-0.2) k/uL Hypochromasia PT (9.0-12.0) sec INR (<1.2) APTT (22.0-30.0) sec Sample Site [place] ABG pH 7.23 L (7.35-7.45) ABG pCO2 39 (35-45) mmHg ABG pO2 240 H (83-108) mmHg ABG HCO3 16 L (21-25) mmol/L ABG Total CO2 17 L (19-24) mmol/L ABG O2 Saturation 99.9 H (94-97) % ABG Base Excess -11.5 mmol/L Darci Test Yes FiO2 100 % Sodium (137-145) mmol/L Potassium (3.5-5.1) mmol/L Chloride (98-107) mmol/L Carbon Dioxide (22-30) mmol/L Anion Gap mmol/L BUN (7-17) mg/dL Creatinine (0.52-1.04) mg/dL Est GFR (CKD-EPI)AfAm (>60 ml/min/1.73 sqM) Est GFR (CKD-EPI)NonAf (>60 ml/min/1.73 sqM) Glucose (74-99) mg/dL POC Glucose (mg/dL) (70-110) mg/dL POC Glu Platinum And Palladium Kettle Tender ID Calcium (8.4-10.2) mg/dL Total Bilirubin (0.2-1.3) mg/dL AST (14-36) U/L ALT (4-34) U/L Alkaline Phosphatase (38-126) U/L Troponin I (0.000-0.034) ng/mL Total Protein (6.3-8.2) g/dL Albumin (3.5-5.0) g/dL Urine Color Yellow Urine Appearance Cloudy H (Clear) Urine pH 6.0 (5.0-8.0) Ur Specific [place] 1.023 (1.001-1.035) Urine Protein 2+ H (Negative) Urine Glucose (UA) 1+ H (Negative) Urine Ketones Negative (Negative) Urine Blood Small H (Negative) Urine Nitrite Negative (Negative) Urine Bilirubin Negative (Negative) Urine Urobilinogen <2.0 (<2.0) mg/dL Ur Leukocyte Esterase Negative (Negative) Urine RBC 3 (0-5) /hpf Urine WBC 2 (0-5) /hpf Ur Squamous Epith Cells 1 (0-4) /hpf Hyaline Casts 85 H (0-2) /lpf Urine Mucus Many H (None) /hpf Urine Opiates Screen (NotDetected) Ur Oxycodone Screen (NotDetected) Urine Methadone Screen (NotDetected) Ur Propoxyphene Screen (NotDetected) Ur Barbiturates Screen (NotDetected) U Tricyclic Antidepress (NotDetected) Ur Phencyclidine Scrn (NotDetected) Ur Amphetamines Screen (NotDetected) U Methamphetamines Scrn (NotDetected) U Benzodiazepines Scrn (NotDetected) Urine Cocaine Screen (NotDetected) U Marijuana (THC) Screen (NotDetected) - EKG Data -: EKG Interpreted by Me EKG Comments: 12-lead Electrocardiogram Interpretation Note EKG was reviewed and interpreted by myself. 12-lead ECG performed at 0317 is interpreted by me as revealing normal sinus rhythm at a rate of 91 beats per minute. [place] is normal. [place] intervals 162 ms, QRS durations 145 ms, QTc is [address] segment elevations in leads 2, 3, aVF as well as reciprocal depressions in the precordial leads. Concern for inferior wall STEMI.. R wave progression across the precordium was satisfactory. By my interpretation, this EKG is concerning for an acute STEMI.. Disposition Clinical Impression: Cardiac arrest, STEMI (ST elevation myocardial infarction), Ventricular tachycardia Disposition: ADMITTED IP TO THIS HOSP Condition: Critical Time of Disposition: 04:20
[2023-04-20 05:27] LABS: Glucose,Whole Blood 334 mg/dL (70-110)
--- NOTE | 2023-04-20 05:33 | CT ---
EXAM: CT Head Without Intravenous Contrast CLINICAL HISTORY: ITS.REASON CT Reason: Altered mental status TECHNIQUE: Axial computed tomography images of the head/brain without intravenous contrast. This CT exam was performed using one or more of the following dose reduction techniques: automated exposure control, adjustment of the mA and/or kV according to patient size, and/or use of iterative reconstruction technique. COMPARISON: CT Head dated 04/10/23, CT Head dated 04/02/23 FINDINGS: Brain: Volume loss and small vessel disease. Encephalomalacia bilaterally in the left frontal and occipital lobes and right temporal lobe. No hemorrhage. Ventricles: Unremarkable. No ventriculomegaly. Bones/joints: Unremarkable. No acute fracture. Soft tissues: Unremarkable. Sinuses: Unremarkable as visualized. No acute sinusitis. Mastoid air cells: Unremarkable as visualized. No mastoid effusion. IMPRESSION: 1. No evidence of acute abnormality. 2. Similar appearance of chronic/evolving infarcts.
[2023-04-20] MEDS ORDERED: HEPARIN SODIUM 1,000 UN/ML (10ML VL) IV PRN (05:43)
[2023-04-20] MEDS ORDERED: HEPARIN SODIUM 1,000 UN/ML (10ML VL) IV ONE (05:43)
[2023-04-20] MEDS ORDERED: ASPIRIN 300 MG SUPP RECTAL STA (05:44)
[2023-04-20] MEDS ORDERED: HEPARIN SOD,PORK IN 0.45% NACL 25,000 UNIT in 0.45% NACL 1 250ML.BAG IV SCH (05:45)
--- NOTE | 2023-04-20 06:52 | P.CNPUL ---
History of Present Illness Consult date: 04/20/23 Requesting physician: Tacos Morgan Reason for consult: other (ICU management post cardiac arrest) Chief complaint: Witnessed cardiac arrest at outside facility History of present illness: I am seeing this patient today 04/20/2023 in the intensive care unit status post witnessed cardiac arrest at outside facility. Patient is an 82-year-old female with past medical history significant for recent intracranial hemorrhage in January,, dementia, and seizure disorder. 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 The patient was a DNR, but there was some confusion at the outside facility, and the patient was resuscitated. The patient reportedly had a witnessed cardiac arrest with a prolonged downtime of approximately 25 minutes. Patient did eventually have ROSC with ventricular tachycardia with a pulse as the presenting rhythm. The patient was then cardioverted three times by EMS. She was intubated in the field, and transferred to [facility]. On arrival, the patient had ECG findings consistent with inferior wall NH. The family has elected not to pursue any further intervention. 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 The family's current wishes are medical management only. Heparin infusion is currently on hold until a follow- up CT of the brain is obtained in lieu of her recent intracranial hemorrhage. Neurology was also consulted for recommendations on anticoagulation. While in the ER the patient developed some profound hypotension, was given a total of 2 L normal saline bolus, and ultimately required vasopressors in the form of norepinephrine currently at 0.14 mcg/kg/min. Patient is also on amiodarone infusing at 1 mg/m. A femoral central line catheter was inserted by the ER physician. Patient is currently in the intensive care unit intubated on mechanical ventilator. Current settings are assist control, respiratory rate of 18, tidal volume of 400, FiO2 of 70%, PEEP of 5. ABGs on these settings and FiO2 100% show a pO2 of 240, pCO2 of 39, pH of 7.23. Patient is not on any sedation, and is synchronous and mechanical ventilator. She does grimace to painful stimuli, but does not follow any commands. Chest x-ray on arrival shows the ET tube approximately 5 cm above the ryder, an NG tube coursing below the diaphragm, bilateral upper lobe pulmonary consolidations. No evidence of pneumothorax. CBC on arrival shows a WBC count of 16.8, hemoglobin 14.1, hematocrit 46.2, platelets 272. BMP shows a sodium 137, potassium 4.3, chloride 105, serum CO2 13, BUN 14, creatinine 0.96, glucose 351. Normal saline infusing at 130 ml/hr. LFTs were only mildly elevated. Troponin was 0.24. ECG shows evidence of ST elevation in leads II, III, and aVF consistent with acute inferior wall NH. Urine toxicology screen was positive for amphetamines, unsure if this is a false positive result. Patient is is currently in critical condition in the intensive care unit. Family is at bedside, including the patient's . I did speak to the patient's family at length. The family is leaning towards comfort care, which was a topic that they initiated. Review of Systems ROS unobtainable: due to endotracheal tube Past Medical History Past Medical History: Seizure Disorder Additional Past Medical History / Comment(s): Osteopenia, fall with headinjury, DEZ in 1979 History of Any Multi-Drug Resistant Organisms: None Reported Past Surgical History: Breast Surgery, Hysterectomy Additional Past Surgical History / Comment(s): mass removed from colon . Colonoscopy 2016(multiple) Past Psychological History: No Psychological Hx Reported Smoking Status: Never smoker Past Alcohol Use History: Rare Past Drug Use History: None Reported - Past Family History Mother Family Medical History: Coronary Artery Disease (CAD), Diabetes Mellitus Medications and Allergies Home Medications Medication Instructions Recorded Confirmed Type Acetaminophen [Tylenol] 650 mg PO Q4H PRN 03/30/23 03/30/23 History Donepezil HCl [Aricept] 10 mg PO HS 03/30/23 03/30/23 History Ezetimibe [Zetia] 10 mg PO DAILY 03/30/23 03/30/23 History Melatonin 10 mg PO HS 03/30/23 03/30/23 History Memantine [Namenda] 5 mg PO BID 03/30/23 03/30/23 History Omeprazole [PriLOSEC] 20 mg PO DAILY 03/30/23 03/30/23 History QUEtiapine FUMARATE [SEROquel] 300 mg PO HS 03/30/23 03/30/23 History Aspirin 81 mg PO DAILY tab 04/04/23 Rx Atorvastatin [Lipitor] 40 mg PO DAILY #0 tab 04/04/23 Rx Cyanocobalamin [Vitamin B-12] 1,000 mcg PO DAILY tab 04/04/23 Rx Folic Acid 1 mg PO DAILY tab 04/04/23 Rx carBAMazepine 200 mg PO BID #0 04/04/23 03/30/23 Rx Allergies Allergy/AdvReac Type Severity Reaction Status Date / Time phenytoin [From Dilantin] AdvReac Unknown Verified 04/10/23 10:49 Physical Exam Vitals: Vital Signs Temp Pulse Resp BP Pulse Ox FiO2 04/20/23 05:45 84 28 H 80/61 94 L 04/20/23 05:30 28 H 115/66 04/20/23 05:24 97.1 F L 90 28 H 96 70 04/20/23 04:16 80 20 86/50 98 04/20/23 04:05 70 04/20/23 03:13 100 04/20/23 03:04 100 04/20/23 03:01 97.6 F 108 H 22 79/45 96 Intake and Output 04/19/23 04/19/23 04/20/23 14:59 22:59 06:59 Intake Total 2.802 Balance 2.802 Intake: Intake, IV Titration 2.802 Amount Norepinephrine 32 mg In 2.802 Sodium Chloride 0.9% 218 ml @ 0.03 MCG/KG/MIN 1. 084 mls/hr IV .Q24H ONE Rx#:[id number] Other: Weight 77.111 kg GENERAL EXAM: Unresponsive 82-year-old female intubated on mechanical ventilator HEAD: Normocephalic and atraumatic EYES: Normal reaction of pupils, equal size. NOSE: Clear with pink turbinates. THROAT: No erythema or exudates. NECK: No masses, no JVD. CHEST: No chest wall deformity. LUNGS: Equal air entry with coarse rhonchi throughout. Intubated the mechanical ventilator. There are a small amount of bloody secretions within the ET tube CVS: S1 and S2 normal with no audible murmur, regular rhythm. No extra heart sounds ABDOMEN: No hepatosplenomegaly, hypoactive bowel sounds, no guarding or rigidity. SPINE: No scoliosis or deformity SKIN: No rashes CENTRAL NERVOUS SYSTEM: No focal deficits, tone is normal in all 4 extremities. She does grimace to painful stimuli, but does not follow any commands EXTREMITIES: There is no peripheral edema, clubbing, or cyanosis. Peripheral pulses are intact. Results - Laboratory Findings CBC and BMP: 04/20/23 03:09 04/20/23 03:09 ABG ABG pH 7.23 (7.35-7.45) L 04/20/23 03:32 ABG pCO2 39 mmHg (35-45) 04/20/23 03:32 ABG pO2 240 mmHg (83-108) H 04/20/23 03:32 ABG O2 Saturation 99.9 % (94-97) H 04/20/23 03:32 PT/INR, D-dimer PT 12.8 sec (9.0-12.0) H 04/20/23 03:09 INR 1.2 (<1.2) H 04/20/23 03:09 Abnormal lab findings: Abnormal Labs 04/20/23 04/20/23 04/20/23 03:09 03:09 03:09 WBC 16.8 H Hct 46.2 H MCHC 30.6 L Neutrophils # 12.6 H PT 12.8 H INR 1.2 H ABG pH ABG pO2 ABG HCO3 ABG Total CO2 ABG O2 Saturation Carbon Dioxide 13 L Glucose 351 H POC Glucose (mg/dL) Calcium 8.1 L AST 66 H ALT 50 H Total Protein 5.6 L Albumin 3.1 L Urine Appearance Urine Protein Urine Glucose (UA) Urine Blood Hyaline Casts Urine Mucus Ur Amphetamines Screen 04/20/23 04/20/23 04/20/23 03:28 03:28 03:32 WBC Hct MCHC Neutrophils # PT INR ABG pH 7.23 L ABG pO2 240 H ABG HCO3 16 L ABG Total CO2 17 L ABG O2 Saturation 99.9 H Carbon Dioxide Glucose POC Glucose (mg/dL) Calcium AST ALT Total Protein Albumin Urine Appearance Cloudy H Urine Protein 2+ H Urine Glucose (UA) 1+ H Urine Blood Small H Hyaline Casts 85 H Urine Mucus Many H Ur Amphetamines Screen Detected H 04/20/23 05:25 WBC Hct MCHC Neutrophils # PT INR ABG pH ABG pO2 ABG HCO3 ABG Total CO2 ABG O2 Saturation Carbon Dioxide Glucose POC Glucose (mg/dL) 334 H Calcium AST ALT Total Protein Albumin Urine Appearance Urine Protein Urine Glucose (UA) Urine Blood Hyaline Casts Urine Mucus Ur Amphetamines Screen - Diagnostic Findings Chest x-ray: image reviewed Assessment and Plan Assessment: [id number] witnessed cardiac arrest with a prolonged downtime estimated at 25 minutes. Presenting rhythm at ROSC was ventricular tachycardia with a pulse, and the patient was subsequently cardioverted 3 times by EMS. Patient was then intubated in the field, and transferred to [facility]. Apparently, there was a confusion about the patient's CODE STATUS while at outside facility, as she was reportedly had DO NOT RESUSCITATE. ST elevation myocardial infarction, on arrival to our facility the patient was found to have ST elevation in inferior leads. Family has elected not to go to [employer] for PCI. The family wants medical management only at this time. Heparin infusion is currently on hold in lieu of patient's recent intracranial hemorrhage. Patient will undergo stat CT of the brain without contrast, and neurology was consulted for anticoagulation recommendations Acute hypoxemic respiratory failure secondary to above, currently intubated on mechanical ventilator Anion gap metabolic acidosis secondary to cardiac arrest Hyperglycemia Recent history of intracranial hemorrhage in January 2023. At that time, the patient had a large acute subdural and parenchymal hemorrhage of the right temporal lobe. 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 The patient was transferred and treated at [facility]. Dementia History of seizure disorder Urine toxicology screen positive for amphetamines, unsure if this is a false-po sitive result Plan: Patient's medications, labs, chest x-ray reviewed Patient will remain on the mechanical ventilator Family has elected to pursue medical management only Family has refused [employer] intervention trend troponins Heparin infusion on hold until follow-up CT of the brain has been completed and neurology consultation Cardiology was consulted and is following Levophed and amiodarone currently infusing through a left femoral central line catheter Family has refused radial arterial line for pressure monitoring and frequent blood draws Patient may have aspirated, will start the patient on empiric Zosyn I did speak to the patient's family at length, including the patient's . They initiated a discussion about comfort care, and are waiting on a daughter from [place]. Until any final decisions have been made, the patient will be monitored in the intensive care unit, and managed medically. I have personally seen and examined the patient, performed the documentation and the assessment and plan as written. Number of minutes spent on the visit:20 Time with Patient: Greater than 30
[2023-04-20] MEDS ORDERED: IPRATROPIUM-ALBUTEROL 3 ML NEB INHALATION SCH (08:00)
[2023-04-20] MEDS ORDERED: PIPERACILLIN-TAZOBACTAM 3.375 GM in SODIUM CHLORIDE 0.9% 100 ML IVPB SCH (08:00)
[2023-04-20 08:09] VITALS: TEMP 98.7
--- NOTE | 2023-04-20 08:29 | P.CRDCN ---
History of Present Illness History of present illness: HISTORY OF PRESENTING ILLNESS This is a pleasant 82-year-old with past medical history significant for recent seizure disorder, dementia, recent intracranial hemorrhage and reports of some d egree of leaky valve who presented secondary to cardiac arrest. History is supplied by family and chart. Patient currently intubated and sedated. Patient had a recent intracranial hemorrhage in January and then has had 2 admissions with confusion and not taking her medications. Prior echo from March that shown EF 50- 55% without significant valvular disease. Patient was found down and underwent CPR approximately 25 minutes and had ventricular tachycardia with 3 defibrillations and eventual return of spontaneous circulation. There is no recent history of chest pain or pressure. EKG showed ST elevations in the lateral leads. Given recent intracranial hemorrhage and family wishes no heart catheterization was performed. She has been on norepinephrine and had no significant neurologic response however currently sedated. Blood pressures in the 130s over 80s. Initial troponin noted to be normal. Family denies any significant cardiac history and has not seen a childcare attendant other than maybe Jim Whitlock during one of the recent hospitalizations. REVIEW OF SYSTEMS At the time of my exam: Unable to obtain secondary to AMS PHYSICAL EXAMINATION Vital signs reviewed. CONSTITUTIONAL: No apparent distress, sedated and intubated. HEENT: Head is normocephalic. Pupils are equal, round. Sclerae anicteric. +ET tube, No carotid bruit. CHEST EXAMINATION: Lungs are clear to auscultation. No chest wall tenderness is noted on palpation or with deep breathing. HEART EXAMINATION: Regular rate and rhythm. S1, S2 heard. No murmurs, gallops or rub. ABDOMEN: Soft, nontender. Positive bowel sounds. EXTREMITIES: 2+ peripheral pulses, no lower extremity edema and no calf tenderness. NEUROLOGIC EXAMINATION: Patient is sedated and intubated ASSESSMENT 1. Cardiac arrest appears related to STEMI, ventricular tachycardia 2. Lateral STEMI 3. Hypotension likely component of sedation as well as possible cardiogenic 4. Recent intracranial hemorrhage January 2023 5. Seizure disorder 6. Altered mental status, concern of anoxic brain injury PLAN Continue with amiodarone and monitor for any significant ventricular tachycardia. Ideally beta lelia however given hypotension we will hold. A spirin however hold heparin given recent intracranial hemorrhage. Given prolonged down time and continued altered mental status, prognosis guarded. Neuro and ICU recommendations appreciated. Check 2-D echo as well as repeat troponin. Past Medical History Past Medical History: Seizure Disorder Additional Past Medical History / Comment(s): Osteopenia, fall with headinjury, DEZ in 1979 History of Any Multi-Drug Resistant Organisms: None Reported Past Surgical History: Breast Surgery, Hysterectomy Additional Past Surgical History / Comment(s): mass removed from colon . Colonoscopy 2016(multiple) Past Psychological History: No Psychological Hx Reported Smoking Status: Never smoker Past Alcohol Use History: Rare Past Drug Use History: None Reported - Past Family History Mother Family Medical History: Coronary Artery Disease (CAD), Diabetes Mellitus Medications and Allergies Home Medications Medication Instructions Recorded Confirmed Type Acetaminophen [Tylenol] 650 mg PO Q4H PRN 03/30/23 03/30/23 History Donepezil HCl [Aricept] 10 mg PO HS 03/30/23 03/30/23 History Ezetimibe [Zetia] 10 mg PO DAILY 03/30/23 03/30/23 History Melatonin 10 mg PO HS 03/30/23 03/30/23 History Memantine [Namenda] 5 mg PO BID 03/30/23 03/30/23 History Omeprazole [PriLOSEC] 20 mg PO DAILY 03/30/23 03/30/23 History QUEtiapine FUMARATE [SEROquel] 300 mg PO HS 03/30/23 03/30/23 History Aspirin 81 mg PO DAILY tab 04/04/23 Rx Atorvastatin [Lipitor] 40 mg PO DAILY #0 tab 04/04/23 Rx Cyanocobalamin [Vitamin B-12] 1,000 mcg PO DAILY tab 04/04/23 Rx Folic Acid 1 mg PO DAILY tab 04/04/23 Rx carBAMazepine 200 mg PO BID #0 04/04/23 03/30/23 Rx Allergies Allergy/AdvReac Type Severity Reaction Status Date / Time phenytoin [From Dilantin] AdvReac Unknown Verified 04/10/23 10:49 Physical Exam Vitals: Vital Signs Temp Pulse Resp BP Pulse Ox FiO2 04/20/23 08:11 105 H 28 H 04/20/23 08:08 105 H 28 H 04/20/23 08:00 98.7 F 105 H 27 H 148/88 98 70 04/20/23 07:52 70 04/20/23 07:45 104 H 18 147/78 88 L 04/20/23 07:30 98 23 124/66 97 04/20/23 07:15 87 25 H 103/63 97 04/20/23 07:00 81 25 H 95/62 95 70 04/20/23 06:45 80 24 92/56 97 04/20/23 06:30 80 23 86/57 97 04/20/23 06:15 84 26 H 85/46 96 04/20/23 06:00 84 26 H 80/52 95 70 04/20/23 05:45 84 28 H 80/61 94 L 04/20/23 05:30 28 H 115/66 04/20/23 05:24 97.1 F L 90 28 H 96 70 04/20/23 05:00 70 04/20/23 04:16 80 20 86/50 98 04/20/23 04:05 70 04/20/23 03:13 100 04/20/23 03:04 100 04/20/23 03:01 97.6 F 108 H 22 79/45 96 Intake and Output 04/19/23 04/20/23 04/20/23 22:59 06:59 14:59 Intake Total 408.223 162.404 Output Total 75 30 Balance 333.223 132.404 Intake: IV 390 130 Sodium Chloride 0.9% 1, 390 130 000 ml @ 130 mls/hr IV . Q7H42M [facility] Rx#:[id number] Intake, IV Titration 18.223 32.404 Amount Norepinephrine 32 mg In 12.247 12.163 Sodium Chloride 0.9% 218 ml @ 0.03 MCG/KG/MIN 1. 084 mls/hr IV .Q24H [facility] Rx#:[id number] propofoL 1,000 mg In 5.976 20.241 Empty Bag 1 bag @ 15 MCG/ KG/MIN 6.94 mls/hr IV . [id number] [facility] Rx#:[id number] Output: Urine 75 30 Other: Voiding Method Indwelling Catheter Weight 77.111 kg Results 04/20/23 03:09 04/20/23 03:09 Cardiac Enzymes 04/20/23 04/20/23 Range/Units 03:09 03:09 AST 66 H (14-36) U/L Troponin I 0.024 (0.000-0.034) ng/mL Coagulation 04/20/23 Range/Units 03:09 PT 12.8 H (9.0-12.0) sec APTT 29.3 (22.0-30.0) sec CBC 04/20/23 Range/Units 03:09 WBC 16.8 H (3.8-10.6) k/uL RBC 4.76 (3.80-5.40) m/uL Hgb 14.1 (11.4-16.0) gm/dL Hct 46.2 H (34.0-46.0) % Plt Count 172 (150-450) k/uL Comprehensive Metabolic Panel 04/20/23 Range/Units 03:09 Sodium 137 (137-145) mmol/L Potassium 4.3 (3.5-5.1) mmol/L Chloride 105 (98-107) mmol/L Carbon Dioxide 13 L (22-30) mmol/L BUN 14 (7-17) mg/dL Creatinine 0.96 (0.52-1.04) mg/dL Glucose 351 H (74-99) mg/dL Calcium 8.1 L (8.4-10.2) mg/dL AST 66 H (14-36) U/L ALT 50 H (4-34) U/L Alkaline Phosphatase 61 (38-126) U/L Total Protein 5.6 L (6.3-8.2) g/dL Albumin 3.1 L (3.5-5.0) g/dL Current Medications Generic Name Dose Route Start Last Admin Trade Name Freq PRN Reason Stop Dose Admin Albuterol/Ipratropium 3 ml 04/20/23 08:00 04/20/23 08:02 Ipratropium-Albuterol 3 Ml Neb INHALATION 3 ml RT-Q4H [facility] Administration Aspirin 325 mg 04/20/23 09:00 Aspirin 325 Mg Tab PO DAILY [facility] Chlorhexidine Gluconate 15 ml 04/20/23 09:00 Chlorhexidine Gluconate 15 Ml Cup MUCOUS MEM BID [facility] Norepinephrine Bitartrate 32 250 mls @ 1.084 mls/hr 04/20/23 03:05 04/20/23 07:40 mg/ Sodium Chloride IV 04/21/23 03:04 0.15 mcg/kg/min .Q24H ONE 5.422 mls/hr Titration Protocol 0.03 MCG/KG/MIN Amiodarone HCl 360 mg/ 200 mls @ 33.333 mls/hr 04/20/23 03:29 04/20/23 03:45 Dextrose/Water IV 04/20/23 09:28 1 mg/min .Q6H ONE 33.333 mls/hr Administration Protocol 1 MG/MIN Amiodarone HCl 450 mg/ 250 mls @ 16.667 mls/hr 04/20/23 09:30 Dextrose/Water IV 04/21/23 03:29 .Q15H EMM[facility]UEL Protocol 0.5 MG/MIN Sodium Chloride 1,000 mls @ 130 mls/hr 04/20/23 04:30 04/20/23 04:45 Saline 0.9% IV 130 mls/hr .Q7H42M [facility] Administration Propofol 1,000 mg/ IV Solution 100 mls @ 6.94 mls/hr 04/20/23 05:15 04/20/23 07:40 IV 45 mcg/kg/min .[id number] [facility] 20.82 mls/hr Titration Protocol 15 MCG/KG/MIN Piperacillin Sod/Tazobactam 100 mls @ 25 mls/hr 04/20/23 08:00 Sod 3.375 gm/ Sodium Chloride IVPB Q8HR [facility] Protocol Naloxone HCl 0.2 mg 04/20/23 04:20 Naloxone 0.4 Mg/Ml 1 Ml Vial IV Q2M PRN Opioid Reversal Pantoprazole Sodium 40 mg 04/20/23 09:00 Pantoprazole 40 Mg/10 Ml Vial IV DAILY [facility] Intake and Output 04/19/23 04/20/23 04/20/23 22:59 06:59 14:59 Intake Total 408.223 162.404 Output Total 75 30 Balance 333.223 132.404 Intake: IV 390 130 Sodium Chloride 0.9% 1, 390 130 000 ml @ 130 mls/hr IV . Q7H42M [facility] Rx#:[id number] Intake, IV Titration 18.223 32.404 Amount Norepinephrine 32 mg In 12.247 12.163 Sodium Chloride 0.9% 218 ml @ 0.03 MCG/KG/MIN 1. 084 mls/hr IV .Q24H [facility] Rx#:[id number] propofoL 1,000 mg In 5.976 20.241 Empty Bag 1 bag @ 15 MCG/ KG/MIN 6.94 mls/hr IV . [id number] [facility] Rx#:[id number] Output: Urine 75 30 Other: Voiding Method Indwelling Catheter Weight 77.111 kg 04/20/23 03:09 04/20/23 03:09
[2023-04-20] MEDS ORDERED: HYDROmorphone 1 MG/ML 1 ML SYRINGE IVP PRN (08:52)
[2023-04-20] MEDS ORDERED: ASPIRIN 325 MG TAB PO SCH (09:00)
[2023-04-20] MEDS ORDERED: PANTOPRAZOLE 40 MG/10 ML VIAL IV SCH (09:00)
[2023-04-20] MEDS ORDERED: CHLORHEXIDINE GLUCONATE 15 ML CUP MUCOUS MEM SCH (09:00)
[2023-04-20] MEDS ORDERED: AMIODARONE 450 MG in DEXTROSE 5% IN WATER 250 ML IV SCH ×2 (09:30)
[2023-04-20 09:53] VITALS: RESP 20
[2023-04-20] MEDS ORDERED: MORPHINE SULFATE 2 MG/ML SYRINGE IV PRN (10:03)
[2023-04-20] MEDS ORDERED: MORPHINE SULFATE 4 MG/ML SYRINGE IV PRN (10:03)
[2023-04-20] MEDS ORDERED: MORPHINE SULFATE 4 MG/ML SYRINGE IVP ONE (10:03)
[2023-04-20] MEDS ORDERED: LORazepam 2 MG/ML INJ IV PRN (10:03)
[2023-04-20] MEDS ORDERED: MORPHINE SULFATE (100 MG/2 ML) 100 MG in SODIUM CHLORIDE 0.9% 100 ML IV SCH (10:15)
[2023-04-20] MEDS ORDERED: SCOPOLAMINE 1 MG/72 HR PATCH TRANSDERM SCH (10:15)
[2023-04-20 12:02] VITALS: BP 68/42; PULSE 89
--- NOTE | 2023-04-20 16:43 | P.HPIM ---
History of Present Illness H&P Date: 04/20/23 HISTORY OF PRESENT ILLNESS: This is an 82-year-old female with a previous medical history significant for hyperlipidemia, epilepsy, vascular dementia, recent history of right temporal intracranial bleed that was diagnosed in 01/17/2023 at [facility] and she was sent to [facility] for evaluation by neurosurgery patient had a stormy and long hospital course down there and she ended up initially going to an extended care facility in the [facility] after that her and her son made in the right refer to be transferred to [facility] and she has been residing there. She had a recent hospitalization at [facility] was discharged on 04/04 which time she was treated for metabolic encephalopathy secondary to evolving multifocal bilateral acute and subacute ischemic infarcts in the left brain and subsequent petechial hemorrhage in the right superior parietal lobe. Patient was again discharged to [facility] where she has been residing. Patient had a witnessed cardiac arrest at the long-term and had a prolonged downtime of 25 minutes. She ended up being resuscitated, intubated and placed on mechanical ventilation and brought into [facility], admitted into the intensive care unit. Comfort care was discussed with the patient's family by pulmonary medicine and she has been extubated and placed on comfort care only. Multiple family members are at the bedside. All questions have been answered. REVIEW OF SYSTEMS: Unable to obtain due to patient's mental status. PAST MEDICAL HISTORY: Right temporal intracranial hemorrhage. Mixed hyperlipidemia. Epilepsy Vascular dementia Osteoarthritis. PAST SURGICAL HISTORY: Bowel resection 2001 SOCIAL HISTORY: Patient denies any history of smoking, no history of drinking, no drug use or abuse. Currently resides at [facility] FAMILY HISTORY: Father at age of 83 from old age mother at age of 64 from coronary artery disease status post CABG in the recovery room, patient had 3 brothers one with sleep apnea patient has one sister who is okay one son was okay 1 daughters okay as well. PHYSICAL EXAMINATION: General: 82-year-old female laying down in bed HEENT: Head is atraumatic, normocephalic Chest: Snoring respirations. Neurologic examination: Patient is unresponsive. ASSESSMENT AND PLAN: 1. Cardiac arrest. 2. ST elevated myocardial infarction. 3. Anoxic brain injury. 4. Acute hypoxic respiratory failure. 5. An ion gap metabolic acidosis secondary to cardiac arrest 6. Recent ischemic infarcts left brain and petechial hemorrhage in the right superior parietal lobe 7. Recent right temporal intracranial bleed in January. 8. Hyperlipidemia. 9. Vascular dementia. 10. Seizure disorder. Admit to inpatient. Estimated length of stay 2 midnights. Impression and plan of care have been directed as dictated by the signing physician. Alexia Lagos nurse practitioner acting as scribe for signing physician. Past Medical History Past Medical History: Seizure Disorder Additional Past Medical History / Comment(s): Osteopenia, fall with headinjury, DEZ in 1979 History of Any Multi-Drug Resistant Organisms: None Reported Past Surgical History: Breast Surgery, Hysterectomy Additional Past Surgical History / Comment(s): mass removed from colon . Colonoscopy 2015(multiple) Past Psychological History: No Psychological Hx Reported Smoking Status: Never smoker Past Alcohol Use History: Rare Past Drug Use History: None Reported - Past Family History Mother Family Medical History: Coronary Artery Disease (CAD), Diabetes Mellitus Medications and Allergies Home Medications Medication Instructions Recorded Confirmed Type Acetaminophen [Tylenol] 650 mg PO Q4H PRN 03/30/23 04/20/23 History Donepezil HCl [Aricept] 10 mg PO HS 03/30/23 04/20/23 History Ezetimibe [Zetia] 10 mg PO DAILY 03/30/23 04/20/23 History Melatonin 10 mg PO HS 03/30/23 04/20/23 History Memantine [Namenda] 5 mg PO BID 03/30/23 04/20/23 History Omeprazole [PriLOSEC] 20 mg PO DAILY 03/30/23 04/20/23 History Aspirin 81 mg PO DAILY tab 04/04/23 04/20/23 Rx Atorvastatin [Lipitor] 40 mg PO DAILY #0 tab 04/04/23 04/20/23 Rx Cyanocobalamin [Vitamin B-12] 1,000 mcg PO DAILY tab 04/04/23 04/20/23 Rx Folic Acid 1 mg PO DAILY tab 04/04/23 04/20/23 Rx QUEtiapine FUMARATE [SEROquel] 400 mg PO HS 04/20/23 04/20/23 History Sennosides/Docusate Sodium [Senna 1 tab PO DAILY 04/20/23 04/20/23 History Plus 8.6-50 mg Tablet] carBAMazepine [Carbatrol] 200 mg PO TID 04/20/23 04/20/23 History Allergies Allergy/AdvReac Type Severity Reaction Status Date / Time phenytoin [From Dilantin] AdvReac Unknown Verified 04/20/23 14:24 Physical Exam Vitals: Vital Signs Temp Pulse Resp BP Pulse Ox FiO2 04/20/23 11:45 68/42 04/20/23 11:30 89 20 106/67 95 04/20/23 11:15 93 19 109/64 95 04/20/23 11:14 50 04/20/23 11:00 94 20 97/65 95 04/20/23 10:45 95 21 106/67 95 04/20/23 10:30 95 20 108/60 94 L 04/20/23 10:15 96 20 100/64 94 L 04/20/23 10:00 98 20 100/68 94 L 04/20/23 09:45 101 H 20 96/62 92 L 45 04/20/23 09:30 99 21 106/67 96 70 04/20/23 09:15 101 H 20 114/70 96 04/20/23 09:00 103 H 27 H 107/67 97 04/20/23 08:45 105 H 28 H 133/75 97 04/20/23 08:30 107 H 29 H 97 04/20/23 08:15 105 H 27 H 135/81 96 70 04/20/23 08:11 104 H 28 H 04/20/23 08:08 104 H 28 H 04/20/23 08:00 98.7 F 105 H 27 H 148/88 98 70 04/20/23 07:52 70 04/20/23 07:45 104 H 18 147/78 88 L 04/20/23 07:30 98 23 124/66 97 04/20/23 07:15 87 25 H 103/63 97 04/20/23 07:00 81 25 H 95/62 95 70 04/20/23 06:45 80 24 92/56 97 04/20/23 06:30 80 23 86/57 97 04/20/23 06:15 84 26 H 85/46 96 04/20/23 06:00 84 26 H 80/52 95 70 04/20/23 05:45 84 28 H 80/61 94 L 04/20/23 05:30 28 H 115/66 04/20/23 05:24 97.1 F L 90 28 H 96 70 04/20/23 05:00 70 04/20/23 04:16 80 20 86/50 98 04/20/23 04:05 70 04/20/23 03:13 100 04/20/23 03:04 100 04/20/23 03:01 97.6 F 108 H 22 79/45 96 Intake and Output 04/19/23 04/20/23 04/20/23 22:59 06:59 14:59 Intake Total 408.223 623.708 Output Total 75 50 Balance 333.223 573.708 Intake: IV 390 530 Invasive Line 1 40 Piperacillin-Tazobactam 3 100 .375 gm In Sodium Chloride 0.9% 100 ml @ 25 mls/hr IVPB Q8HR [facility] Rx# :[id number] Sodium Chloride 0.9% 1, 390 390 000 ml @ 130 mls/hr IV . [id number] [facility] Rx#:[id number] Intake, IV Titration 18.223 93.708 Amount Norepinephrine 32 mg In 12.247 12.163 Sodium Chloride 0.9% 218 ml @ 0.03 MCG/KG/MIN 1. 084 mls/hr IV .Q24H [facility] Rx#:[id number] propofoL 1,000 mg In 5.976 81.545 Empty Bag 1 bag @ 15 MCG/ KG/MIN 6.94 mls/hr IV . [id number] [facility] Rx#:[id number] Output: Urine 75 50 Other: Voiding Method Indwelling Catheter Indwelling Catheter Weight 77.111 kg Results CBC & Chem 7: 04/20/23 03:09 04/20/23 03:09 Labs: Abnormal Lab Results - Last 24 Hours (Table) 04/20/23 04/20/23 04/20/23 Range/Units 03:09 03:09 03:09 WBC 16.8 H (3.8-10.6) k/uL Hct 46.2 H (34.0-46.0) % MCHC 30.6 L (31.0-37.0) g/dL Neutrophils # 12.6 H (1.3-7.7) k/uL PT 12.8 H (9.0-12.0) sec INR 1.2 H (<1.2) ABG pH (7.35-7.45) ABG pO2 (83-108) mmHg ABG HCO3 (21-25) mmol/L ABG Total CO2 (19-24) mmol/L ABG O2 Saturation (94-97) % Carbon Dioxide 13 L (22-30) mmol/L Glucose 351 H (74-99) mg/dL POC Glucose (mg/dL) (70-110) mg/dL Calcium 8.1 L (8.4-10.2) mg/dL AST 66 H (14-36) U/L ALT 50 H (4-34) U/L Total Protein 5.6 L (6.3-8.2) g/dL Albumin 3.1 L (3.5-5.0) g/dL Urine Appearance (Clear) Urine Protein (Negative) Urine Glucose (UA) (Negative) Urine Blood (Negative) Hyaline Casts (0-2) /lpf Urine Mucus (None) /hpf Ur Amphetamines Screen (NotDetected) 04/20/23 04/20/23 04/20/23 Range/Units 03:28 03:28 03:32 WBC (3.8-10.6) k/uL Hct (34.0-46.0) % MCHC (31.0-37.0) g/dL Neutrophils # (1.3-7.7) k/uL PT (9.0-12.0) sec INR (<1.2) ABG pH 7.23 L (7.35-7.45) ABG pO2 240 H (83-108) mmHg ABG HCO3 16 L (21-25) mmol/L ABG Total CO2 17 L (19-24) mmol/L ABG O2 Saturation 99.9 H (94-97) % Carbon Dioxide (22-30) mmol/L Glucose (74-99) mg/dL POC Glucose (mg/dL) (70-110) mg/dL Calcium (8.4-10.2) mg/dL AST (14-36) U/L ALT (4-34) U/L Total Protein (6.3-8.2) g/dL Albumin (3.5-5.0) g/dL Urine Appearance Cloudy H (Clear) Urine Protein 2+ H (Negative) Urine Glucose (UA) 1+ H (Negative) Urine Blood Small H (Negative) Hyaline Casts 85 H (0-2) /lpf Urine Mucus Many H (None) /hpf Ur Amphetamines Screen Detected H (NotDetected) 04/20/23 Range/Units 05:25 WBC (3.8-10.6) k/uL Hct (34.0-46.0) % MCHC (31.0-37.0) g/dL Neutrophils # (1.3-7.7) k/uL PT (9.0-12.0) sec INR (<1.2) ABG pH (7.35-7.45) ABG pO2 (83-108) mmHg ABG HCO3 (21-25) mmol/L ABG Total CO2 (19-24) mmol/L ABG O2 Saturation (94-97) % Carbon Dioxide (22-30) mmol/L Glucose (74-99) mg/dL POC Glucose (mg/dL) 334 H (70-110) mg/dL Calcium (8.4-10.2) mg/dL AST (14-36) U/L ALT (4-34) U/L Total Protein (6.3-8.2) g/dL Albumin (3.5-5.0) g/dL Urine Appearance (Clear) Urine Protein (Negative) Urine Glucose (UA) (Negative) Urine Blood (Negative) Hyaline Casts (0-2) /lpf Urine Mucus (None) /hpf Ur Amphetamines Screen (NotDetected) Thrombosis Risk Factor Assmnt - Choose All That Apply Any of the Below Risk Factors Present?: Yes Each Factor Represents 1 point: Acute [place] Other Risk Factors: Yes Each Risk Factor Represents 2 Points: Central venous access, Patient confined to bed Each Risk Factor Represents 3 Points: Age 75 years or older Thrombosis Risk Factor Assessment Total Risk Factor Score: 8 Thrombosis Risk Factor Assessment Level: High Risk
--- NOTE | 2023-04-20 18:30 | P.PN ---
Progress Note - Text Progress Note Date: 04/20/23 Was notified by patient's nurse, that neurology is not needed since patient's has been made comfort care.
== END 2023-04-20 19:25 | disposition expired ==
LOC: EC 03:01 → 2SICU 04:21
PROVIDERS: ADMIT Internal Medicine; ATTEND Internal Medicine
PROC: 5A1935Z Respiratory Ventilation, Less than 24 Consecutive Hours (ICD-10-PCS; principal; 2023-04-20)
PROC: 3E043XZ Introduction of Vasopressor into Central Vein, Percutaneous Approach (ICD-10-PCS; 2023-04-20)
PROC: 0D9770Z Drainage of Stomach, Pylorus with Drainage Device, Via Natural or Artificial Opening (ICD-10-PCS; 2023-04-20)
PROC: 02HV33Z Insertion of Infusion Device into Superior Vena Cava, Percutaneous Approach (ICD-10-PCS; 2023-04-20)
DX: I21.19 ST elevation (STEMI) myocardial infarction involving other coronary artery of inferior wall (principal); J96.01 Acute respiratory failure with hypoxia; G93.1 Anoxic brain damage, not elsewhere classified; I47.20 Ventricular tachycardia, unspecified; E87.20 Acidosis, unspecified; I46.2 Cardiac arrest due to underlying cardiac condition; G40.909 Epilepsy, unspecified, not intractable, without status epilepticus; E78.2 Mixed hyperlipidemia; F01.50 Vascular dementia, unspecified severity, without behavioral disturbance, psychotic disturbance, mood disturbance, and anxiety; M85.80 Other specified disorders of bone density and structure, unspecified site; I95.9 Hypotension, unspecified; Z51.5 Encounter for palliative care; Z66 Do not resuscitate; Z79.82 Long term (current) use of aspirin; Z79.899 Other long term (current) drug therapy; Z82.49 Family history of ischemic heart disease and other diseases of the circulatory system; Z86.73 Personal history of transient ischemic attack (TIA), and cerebral infarction without residual deficits; Z91.81 History of falling; M19.90 Unspecified osteoarthritis, unspecified site; R73.9 Hyperglycemia, unspecified; Z83.3 Family history of diabetes mellitus; Z74.01 Bed confinement status; Z88.5 Allergy status to narcotic agent
CPT/HCPCS: 36415; 36556; 36600; 51702; 70450; 71045; 80053; 80306; 81001; 82805; 84484; 85025; 85610; 85730; 87070; 87205; 93005; 94640; 96365; 96366; 96368; 99291